=== PATIENT | male | born 2000 | race Caucasian/White ===

== ENCOUNTER 2024-02-08 14:51 | Outpatient (OUT) | payer BC, SELFPAY | END 2024-02-08 14:52 | disposition home or self-care (01) | LOC: SLEEP 14:51 | PROVIDERS: PCP Nurse Practitioner Family; Visit Provider Nurse Practitioner Family | DX: G47.33 Obstructive sleep apnea (adult) (pediatric) (principal) | CPT/HCPCS: 95806 ==

== ENCOUNTER 2024-03-14 20:30 | Outpatient (OUT) | payer BC, SELFPAY ==
--- OUTSIDE RECORDS SUMMARY | 2024-03-14 20:51 | XMS_ITS | CCD ---
Author Organization [facility] Inform ion Partnership [facility] Care Team Providers [employer] Name Role Phone Crys Urrutia Primary Care Provider [phone] CRYS URRUTIA Primary Care Unavailable GIANNA EDDY Attending Unavailable CRYS URRUTIA Primary Care Unavailable YUE PULIDO Attending Unavailable CRYS URRUTIA Primary Care Unavailable Jada Miranda Primary Care Physician Jada Montalvo Unavailable Unavailable ADEN MCCORMACK Attending Unavailable CRYS URRUTIA Primary Care Unavailable ADEN MCCORMACK Attending Unavailable ADEN MCCORMACK Referring Unavailable CRYS URRUTIA Primary Care Unavailable BEE BAILEY Attending Unavailable BEE BAILEY Referring Unavailable BEE BAILEY Attending Unavailable JUSTIN HERNANDEZ Attending Unavailable Allergies Allergy Classification Reported Allergen(s) Allergy Type Date of Onset Reaction(s) Facility (6 sources) Penicillins; Translations: [PENICILLINS] Propensity to adverse reactions to drug 10-14-2016 [employer] Work Phone: (3 sources) Penicillins Propensity to adverse reactions to drug 08-08-2018 [email or web address] Medications Current Medications Medication Drug Class(es) Dates Sig (Normalized) Sig (Original) acetaminophen 300 mg / butalbital 50 mg / caffeine 40 mg oral capsule (5 sources) Barbiturate, Central Nervous System Stimulant, Methylxanthine Start: 01-23-2020 take 1 capsule by mouth every six hours as needed for headache butalbital-APAP- caffeine (FIORICET) 50-300-40 MG CAPS per capsule Take 1 capsule by mouth every 6 hours as needed for Headaches 20 capsule 0 01/23/2020 Active Baloxavir Marboxil (XOFLUZA, 80 MG DOSE,) 1 x 80 MG tablet (1 source) Start: 08-17-2022 End: 08-17-2022 take 1 tablet by mouth once Baloxavir Marboxil (XOFLUZA, 80 MG DOSE,) 1 x 80 MG tablet Take 1 tablet by mouth once for 1 dose 1 tablet 0 08/17/2022 08/17/2022 Active dicyclomine hydrochloride 10 mg oral capsule (2 sources) Anticholinergic Start: 10-14-2022 take 1 capsule by mouth four times daily before mealtime dicyclomine (BENTYL) 10 MG capsule Take 1 capsule by mouth 4 times daily (before meals and nightly) 20 capsule 0 10/14/2022 Active Start: 10-14-2022 dicyclomine (B ENTYL) capsule 20 mg 0.4 ml enoxaparin sodium 100 mg/ml prefilled syringe (1 source) Low Molecular Weight Heparin Start: 10-09-2019 inject 40 mg by subcutaneous injection once daily 40 mg, Subcutaneous, DAILY, First dose on Tue10/09/19 at 1930 glucagon (rdna) 1 mg injection (1 source) Antihypoglycemic Agent Start: 10-10-2019 glucagon (rDNA) injection 1 mg 150 ml glucose 50 mg/ml injection (4 sources) Start: 10-10-2019 dextrose 5 % solution Start: 10-10-2019 glucose (GLUTO SE) 40 % oral gel 15 g Start: 10-10-2019 dextrose 50 % IV solution Start: 10-09-2019 12.5 g, Intrav enous, PRN, Low blood sugar, Starting Tue10/09/19 at 1902 For blood glucose level less than 70 mg/dL. Check blood glucose every 15 minutes and repeat above if blood glucose is less than 70 mg/dL. ibuprofen 800 mg oral tablet (3 sources) Nonsteroidal Anti-inflammatory Drug Start: 02-24-2021 take 1 tablet by mouth every eight hours as needed for pain ibuprofen (IBU) 800 MG tablet Take 1 tablet by mouth every 8 hours as needed for Pain 21 tablet 0 02/24/2021 Active insulin glargine 100 unt/ml injectable solution (9 sources) Insulin Analog Start: 10-10-2019 insulin glargine (LANTUS) injection vial 25 Units Toujeo SoloStar U-300 Insulin 300 unit/mL (1.5 mL) subcutaneous pen inject by subcutaneous route per prescriber's instructions. Insulin dosing requires individualization. insulin glargine (TOUJEO SOLOSTAR) 300 UNIT/ML injection pen Inject 50 Units into the skin nightly 0 Active insulin glulisine, human 100 unt/ml injectable solution (7 sources) Insulin Analog insulin glulisin e (APIDRA) 100 UNIT/ML injection Inject 10 Units into the skin 3 times daily (with meals) 0 Active insulin lispro 100 unt/ml injectable solution (5 sources) Insulin Analog Start: 10-10-2019 insulin lispro (HUMALOG) injection vial 0-6 Units Start: 10-10-2019 End: 10-10-2019 insulin lispro (HUMALOG) inj ection vial 10 Units Start: 08-09-2018 End: 08-20-2019 insulin lispro (HUMALOG) 100 UNIT/ML pen Indications: Diabetic ketoacidosis without coma associated with type 1 diabetes mellitus (HCC) , DKA, type 1, not at goal (HCC) Inject 0-18 Units into the skin 3 times daily (with meals) If Glucose: 70-139 No Insulin;140-199 3 Units; 200-249 6 Units, 250-299 9 Units,300-349 12 Units, 350-400 15 Units, Over 400 18 Units 5 pen 0 08/09/2018 08/20/2019 Discontinued (LIST CLEANUP) Start: 08-09-2018 End: 08-20-2019 insulin lispro (HUMALOG) 100 UNIT/ML pen Indications: Diabetic ketoacidosis without coma associated with type 1 diabetes mellitus (HCC) , DKA, type 1, not at goal (HCC) Night sliding scale: Glucose: 70-139 None;140-199 2 Units; 200-249 3 Units, 250-299 5 Units,300-349 6 Units, 350-400 7 Units, > 400 9 Units 5 pen 0 08/09/2018 08/20/2019 Discontinued (LIST CLEANUP) 100 ml magnesium sulfate 10 mg/ml injection (1 source) Start: 10-09-2019 1 g, Intravenous, at 100 mL/hr, Administer over 1 Hours, PRN, Other, Magnesium IV Replacement, Starting Tu10/09/19 at 1902 Mg Level Mg Replacement Action 1.4 to 1.6 1 gram IVPB x 2 doses (2 grams total) 1.0 to 1.3 1 gram IVPB x 4 doses (4 grams total) Below 1.0 CALL PHYSICIAN and 1 gram IVPB x 4 doses (4 grams total) Infuse at 1 gram/hr. Repeat Mg level next AM. Not for use in patients with CrCl less than 30 mL/min. ondansetron 4 mg disintegrating oral tablet (6 sources) Serotonin-3 Receptor Antagonist Start: 08-17-2022 End: 08-17-2022 take 1 tablet by mouth three times daily as needed for nausea ondansetron (ZOFRAN-ODT) 4 MG disintegrating tablet Take 1 tablet by mouth 3 times daily as needed for Nausea or Vomiting 20 tablet 0 08/17/2022 Active Start: 08-20-2019 End: 08-25-2019 take 1 tablet by mouth every eight hours as needed for nausea ondansetron (ZOFRAN) 4 MG tablet Take 1 tablet by mouth every 8 hours as needed for Nausea or Vomiting 15 tablet 0 08/20/2019 08/25/2019 Active Start: 08-20-2019 End: 08-20-2019 ondansetron (ZOFRAN) injecti on 4 mg 100 ml potassium chloride 0. 1 meq/ml injection (1 source) Start: 10-09-2019 10 mEq, Intrav enous, at 100 mL/hr, PRN, Potassium IV Replacement, Starting Tue10/09/19 at 1902 Above 5.2 No dose 4.3 to 5.2 10 mEq IVPB x 2 doses (20 mEq total) 3.4 to 4.2 10 mEq IVPB x 3 doses (30 mEq total) Below 3.4 10 mEq IVPB x 4 doses (40 mEq total) Infuse at 10 mEq/hr. Can be administered either through peripheral IV or central IV. 1000 ml sodium chloride 9 mg/ml injection (3 sources) Start: 10-10-2019 0.9 % sodium c hloride infusion Start: 10-09-2019 End: 10-09-2019 0.9 % NaCl bolus Start: 08-20-2019 End: 08-20-2019 0.9 % sodium chloride bolus Completed/Discontinued Medications Medication Drug Class(es) Dates Sig (Normalized) Sig (Original) acetaminophen 500 mg oral tablet (1 source) Start: 08-17-2022 End: 08-17-2022 acetaminophen (TYLENOL) tablet 1,000 mg aluminum & magnesium hydroxide-simethicone (MAALOX) 30 mL, lidocaine viscous hcl (XYLOCAINE) 5 mL (GI COCKTAIL) (1 source) Start: 10-14-2022 End: 10-14-2022 aluminum & magnesium hydroxide-simethicon e (MAALOX) 30 mL, lidocaine viscous hcl (XYLOCAINE) 5 mL (GI COCKTAIL) diphenhydrAMINE hydrochloride 25 mg oral capsule (1 source) Histamine-1 Receptor Antagonist Start: 01-23-2020 End: 01-23-2020 diphenhydrAMINE (BENADRYL) capsule 25 mg Start: 01-23-2020 End: 01-23-2020 diphenhydrAMINE (BENADRYL) c apsule 25 mg 250 ml glucose 50 mg/ml / sodium chloride 4.5 mg/ml injection (1 source) Start: 10-09-2019 End: 10-10-2019 take 1 mL intravenous route every hour Intravenous, at 150 mL/hr, CONTINUOUS PRN, blood glucose less than 250 mg/dL, Starting Tue10/09/19 at 1902 When blood glucose equals 250 mg/dL or below, DISCONTINUE saline IV Fluid using Per Protocol order mode and start using this dextrose containing IV fluid order. DO NOT restart saline infusion if subsequent blood glucose returns above 250 mg/dL. 3 ml insulin aspart, human 100 unt/ml pen injector (2 sources) Insulin Analog Novolog FlexPen U-100 Insulin aspart 100 unit/mL (3 mL) subcutaneous inject by subcutaneous route per prescriber's instructions. Insulin dosing requires individualization. insulin aspart ( NOVOLOG) 100 UNIT/ML injection vial Inject into the skin 3 times daily (before meals) Patient reports he takes 1 unit for every 7g carbs, sliding scale 0 Active insulin regular (HUMULIN R;NOVOLIN R) 100 Units in sodium chloride 0.9 % 100 mL infusion (1 source) Start: 10-09-2019 End: 10-09-2019 inject 0.1 [IU] intravenous route every hour 0.1 Units/kg/hr 67.1 kg (6.71 mL/hr, rounded to 6.7 mL/hr), Intravenous, at 6.7 mL/hr, CONTINUOUS, Starting Tue10/09/19 at 1930 Initial DKA Insulin Infusion Protocol: - If any blood glucose (BG) increases, then increase infusion by 50% of current rate - If BG decrease is less than 50 mg/dL per hour, increase infusion by 50% of current rate - If BG decrease is between 50-75 mg/dL per hour, then make no change to infusion rate - If BG decrease is between 76-100 mg/dL per hour, decrease infusion by 50% of current rate - If BG decrease is greater than 100 mg/dL per hour, decrease infusion by 50%, repeat BG, and call provider - When BG < 250 mg/dL, switch to DKA Multiplier Insulin Infusion Protocol (DO NOT switch back to above protocol if the BG subsequently goes above 250 mg/dL again). - REMINDER TO CHANGE IV FLUIDS - When BG 250 mg/dL or below, DISCONTINUE saline IV fluid using Per Protocol order mode and start using the dextrose containing IV fluid order previously placed as CONTINUOUS PRN. DO NOT restart saline infusion if subsequent BG returns above 250 mg/dL. DKA Multiplier Insulin Infusion Protocol: Low BG target: 150 mg/dL and High BG target: 200 mg/dL Begin infusion rate by the following formula: (BG - 60) x 0.03 = insulin units per hour but DO NOT increase the insulin rate any greater than three times the current rate. Adjust the multiplier in the above formula as follows: - If BG is greater than 200 mg/dL, increase multiplier by 0.01 - If BG is less than 150 md/dL, decrease multiplier by 0.01 - If BG is between 150 - 200 mg/dL, make no change in multiplier - Recalculate insulin dose with every BG drawn, even if the multiplier does not change - Hold insulin infusion if BG less than 80 mg/dL, if BG less than 70 mg/dL follow hypoglycemia treatment orders, continue to check BG as ordered, and restart insulin infusion if and when BG increases back into goal range while decreasing last multiplier by 0.01 Notify provider if: * BG is less than 80 * If BG less than 200 mg/dL AND when both of the following criteria are met on two consecutive BMPs: Anion gap normalized (less than 12), serum bicarb (HCO3) greater than 15, call provider for conversion from insulin infusion to subcutaneous insulin and discontinue insulin infusion 2 hours after the first subcutaneous injection of insulin. * If multiplier less than 0.01 results in insulin rate of 0 units/hr for clarification on insulin infusion rate and/or IV fluid adjustments. Maintain current insulin infusion rate prior to notifying physician unless BG less than 80 mg/dL. Iopamidol (1 source) Radiographic Contrast Agent Start: 08-20-2019 End: 08-20-2019 iopamidol (ISOVUE-370) 76 % injection 75 mL iopamidol (ISOVUE-370) 76 % injection 75 mL (1 source) Start: 10-11-2022 End: 10-11-2022 iopamidol (ISOVUE-370) 76 % injection 75 mL 1 ml ketorolac tromethamine 15 mg/ml cartridge (2 sources) Nonsteroidal Anti-inflammatory Drug, Cyclooxygenase Inhibitor Start: 10-11-2022 End: 10-11-2022 ketorolac (TORADOL) injection 15 mg Start: 01-23-2020 End: 01-23-2020 ketorolac (TORADOL) injectio n 15 mg 2 ml metoclopramide 5 mg/ml prefilled syringe (1 source) Dopamine-2 Receptor Antagonist Start: 01-23-2020 End: 01-23-2020 metoclopramide (REGLAN) injection 10 mg Start: 01-23-2020 End: 01-23-2020 metoclopramide (REGLAN) inje ction 10 mg naproxen 500 mg oral tablet (1 source) Nonsteroidal Anti-inflammatory Drug End: 08-01-2023 take 1 tablet by mouth twice daily at mealtime naproxen 500 mg tablet 08/01/2023 take 1 tablet (500 mg) by oral route 2 times per day with food regular insulin, human 100 unt/ml injectable solution (2 sources) Insulin Start: 10-09-2019 End: 10-09-2019 insulin regular (HUMULIN R;NOVOLIN R) injection 5 Units Start: 10-09-2019 End: 10-09-2019 insulin regular (HUMULIN R;N OVOLIN R) injection 10 Units Problems Active Problems Problem Classification Problem Date Documented Da te Episodic/Chronic Abdominal pain (5 sources) Periumbilical pain; Translations: [Abdominal pain] Onset: 10-11-2022 Episodic Diabetes mellitus with complications (7 sources) Diabetic ketoacidosis without coma; Translations: [Type 1 diabetes mellitus with ketoacidosis without coma] Onset: 08-08-2018 08-08-2018 Chronic Diabetes mellitus without complication (16 sources) Type 1 diabetes mellitus; Translations: [Type 1 diabetes mellitus with ketoacidosis without coma] Onset: 08-08-2018 10-09-2019 Chronic Influenza (2 sources) Influenza due to Influenza A virus; Translations: [Influenza due to other identified influenza virus with other respiratory manifestations] Onset: 08-17-2022 Episodic Lung disease due to external agents (1 source) Respiratory conditions due to other specified external agents; Translations: [Respiratory conditions due to other specified external agents] Onset: 09-10-2023 Episodic Other gastrointestinal disorders (1 source) Constipation; Translations: [Constipation, unspecified] Episodic Other gastrointestinal disorders (1 source) Constipation, unspecified; Translations: [Constipation, unspecified] Onset: 10-11-2022 Episodic Other lower respiratory disease (1 source) Shortness of breath; Translations: [Shortness of breath] Onset: 09-10-2023 Episodic Other upper respiratory infections (1 source) Acute pharyngitis; Translations: [Acute pharyngitis, unspecified etiology] Episodic Poisoning by nonmedicinal substances (1 source) Toxic effect of chlorine gas, accidental (unintentional), initial encounter; Translations: [Toxic effect of chlorine gas, accidental (unintentional), initial encounter] Onset: 09-10-2023 Episodic Sprains and strains (1 source) Other sprain of left shoulder joint, initial encounter Onset: 08-01-2023 Episodic Unclassified (1 source) Inhalation Injury Onset: 09-10-2023 Past or Other Problems Problem Classification Problem Date Documented Da te Episodic/Chronic Acute and unspecified renal failure (4 sources) Acute injury of kidney; Translations: [Acute kidney failure, unspecified] Onset: 08-09-2018 08-09-2018 Episodic Acute and unspecified renal failure (3 sources) Acute injury of kidney; Translations: [ADDISON (acute kidney injury)] Onset: 08-09-2018 08-09-2018 Diabetes mellitus without complication (8 sources) Hyperglycemia; Translations: [Hyperglycemia, unspecified] Onset: 10-09-2019 10-09-2019 Episodic Fluid and electrolyte disorders (7 sources) Acidosis; Translations: [Acidosis] Onset: 10-09-2019 10-09-2019 Episodic Headache; including migraine (8 sources) Headache disorder; Translations: [Headache] Onset: 08-08-2018 08-08-2018 Episodic Nausea and vomiting (7 sources) Nausea and vomiting; Translations: [Nausea with vomiting, unspecified] Onset: 08-08-2018 08-08-2018 Episodic Results Test Name Value Interpretation Reference Range Facility BASIC METABOLIC PANLon 09-10 Anion gap [Moles/Vol] 9 mmol/L Normal 5-15 [facility] Comment on above: Performed By: #### C BCA, BMP #### [facility] ([id number]) [address] [place] [address] [phone] Calcium [Mass/Vol] 9.1 mg/dL Normal 8.5-10.5 [facility] Comment on above: Performed By: #### C BCA, BMP #### [facility] ([id number]) [address] [place] [address] [phone] Chloride [Moles/Vol] 100 mmol/L Normal 98-109 [facility] Comment on above: Performed By: #### C BCA, BMP #### [facility] ([id number]) [address] [place] [address] [phone] CO2 [Moles/Vol] 25 mmol/L Normal 22-32 [facility] Comment on above: Performed By: #### C BCA, BMP #### [facility] ([id number]) [address] [place] [address] 29402 Creatinine [Mass/Vol] 0.84 mg/dL Normal 0.70-1.20 [facility] Comment on above: Result Comment: METH OD TRACEABLE TO IDMS STANDARD Performed By: #### C YANELI, BMP #### [facility] ([id number]) [address] [place] [address] 87787 eGFR (CKD-EPI) NON-RACE DEPENDENT >90 Normal >59 [facility] Comment on above: Result Comment: Reported eGFR is based on the CKD-EPI 2020 equation that does not use a race coefficient. Performed By: #### C YANELI, BMP #### [facility] ([id number]) [address] [place], [place] [phone] Glucose [Mass/Vol] 259 mg/dL High 65-99 [facility] Comment on above: Performed By: #### C YANELI, BMP #### [facility] ([id number]) [address] [place], [place] [phone] Potassium [Moles/Vol] 4.1 mmol/L Normal 3.5-5.0 [facility] Comment on above: Performed By: #### C YANELI, BMP #### [facility] ([id number]) [address] [place] [address] 86956 Sodium [Moles/Vol] 134 mmol/L Normal 134-146 [facility] Comment on above: Performed By: #### C YANELI, BMP #### [facility] ([id number]) [address] [place], [place] [phone] Urea nitrogen [Mass/Vol] 16 mg/dL Normal 5-23 [facility] Comment on above: Performed By: #### C YANELI, BMP #### [facility] ([id number]) [address] [place] [address] 41746 CBC AND AUTO DIFFon 20-20 24 ABSOLUTE BASOPHIL 0.0 X10E9/L Normal 0.0-0.2 [facility] Comment on above: Performed By: #### C YANELI, BMP #### [facility] ([id number]) [address] [place] [address] 74946 ABSOLUTE NEUTROPHIL 6.1 X10E9/L Normal 1.5-6.6 [facility] Comment on above: Performed By: #### C BCA, BMP #### [facility] ([id number]) [address] [place] [address] 65400 Basophils/100 WBC (Bld) 0.5 % Normal [facility] Comment on above: Performed By: #### C BCA, BMP #### [facility] ([id number]) [address] [place] [address] 49964 Eosinophils (Bld) [#/Vol] 0.0 10*3/uL Normal 0.0-0.4 [facility] Comment on above: Performed By: #### C YANELI, BMP #### [facility] ([id number]) [address] [place] [address] [phone] Eosinophils/100 WBC (Bld) 0.3 % Normal [facility] Comment on above: Performed By: #### C YANELI, BMP #### [facility] ([id number]) [address] [place] [address] 37425 Erythrocyte distribution width (RBC) [Ratio] 12.6 % Normal 11.5-15.0 [facility] Comment on above: Performed By: #### C BCA, BMP #### [facility] ([id number]) [address] [place] [address] 79914 Hematocrit (Bld) [Volume fraction] 46.4 % Normal 39-49 [facility] Comment on above: Performed By: #### C BCA, BMP #### [facility] ([id number]) [address] [place] [address] 48566 Hemoglobin (Bld) [Mass/Vol] 15.8 g/dL Normal 13.0-17.0 [facility] Comment on above: Performed By: #### C BCA, BMP #### [facility] ([id number]) [address] [place] [address] 79243 Lymphocytes (Bld) [#/Vol] 1.3 10*3/uL Normal 1.0-3.5 [facility] Comment on above: Performed By: #### C BCA, BMP #### [facility] ([id number]) [address] [place] [address] 25084 Lymphocytes/100 WBC (Bld) 16.6 % Normal [facility] Comment on above: Performed By: #### C BCA, BMP #### [facility] ([id number]) [address] [place] [address] 28303 MCH (RBC) [Entitic mass] 30.8 pg Normal 27-34 [facility] Comment on above: Performed By: #### C BCA, BMP #### [facility] ([id number]) [address] [place] [address] 06230 MCHC (RBC) [Mass/Vol] 34.2 g/dL Normal 32-36 [facility] Comment on above: Performed By: #### C BCA, BMP #### [facility] ([id number]) [address] [place] [address] 66121 MCV (RBC) [Entitic vol] 90 fL Normal 80-100 [facility] Comment on above: Performed By: #### C BCA, BMP #### [facility] ([id number]) [address] [place] [address] 71326 Monocytes (Bld) [#/Vol] 0.2 10*3/uL Normal 0-0.9 [facility] Comment on above: Performed By: #### C BCA, BMP #### [facility] ([id number]) [address] [place] [address] 15256 Monocytes/100 WBC (Bld) 3.2 % Normal [facility] Comment on above: Performed By: #### C BCA, BMP #### [facility] ([id number]) [address] [place] [address] 01416 Neutrophils/100 WBC (Bld) 79.4 % Normal [facility] Comment on above: Performed By: #### Bernice GROVES, BMP #### [facility] ([id number]) [address] [place] [address] [phone] Platelet mean volume (Bld) [Entitic vol] 8.6 fL Normal 7-12 [facility] Comment on above: Performed By: #### Bernice GROVES, BMP #### [facility] ([id number]) [address] [place] [address] 81866 Platelets (Bld) [#/Vol] 259 10*3/uL Normal 150-450 [facility] Comment on above: Performed By: #### Bernice GROVES, BMP #### [facility] ([id number]) [address] [place] [address] 81189 RBC COUNT 5.14 X10E12/L Normal 4.10-5.70 [facility] Comment on above: Performed By: #### Bernice GROVES, BMP #### [facility] ([id number]) [address] [place] [address] 18645 WBC (Bld) [#/Vol] 7.7 10*3/uL Normal 4.0-11.0 [facility] Comment on above: Performed By: #### Bernice GROVES, BMP #### [facility] ([id number]) [address] [place] [address] 25648 XR CHEST 1 VWon 09-10-2023 XR CHEST 1 VW XR CHEST 1 VW CLINICAL INFORMATION: . Shortness of breath post inhalation of chlorine gas. TECHNIQUE/PROCEDURE: Chest radiograph, single view. COMPARISON: Prior chest radiographs, most recently 01/24/2018 FINDINGS: No tracheal deviation. Cardiac and mediastinal contours normal. No consolidation, pneumothorax or pleural effusion. No free air. IMPRESSION: * No radiographic evidence of cardiopulmonary disease. Finalized by Surya Smyth MD on 09/10/2023 9:57 AM Normal [facility] No Panel Informationon 08-01 Tobacco smoking status Non-Smoker Invalid Interpretation Code [facility] [employer] CBC with Auto Differentialon 10-14-2022 Absolute Eos # 0.09 [facility] Absolute Immature Granulocyte [facility] Absolute Lymph # 1.71 [facility] Absolute Hand # 0.39 [facility] Basophils Absolute [facility] Basophils/100 WBC (Bld) 0 % 0 - 2 % [facility] Eosinophils/100 WBC (Bld) 2 % 1 - 4 % [facility] Hematocrit (Bld) [Volume fraction] 43.6 % 40.7 - 50.3 % [facility] Hemoglobin (Bld) [Mass/Vol] 15.3 g/dL 13.0 - 17.0 g/dL [facility] Immature granulocytes/100 WBC (Bld) 0 % 0 [facility] Interpretation and review of laboratory results Abnormal [facility] Lymphocytes/100 WBC (Bld) 32 % 24 - 43 % [facility] MCH (RBC) [Entitic mass] 31.7 pg 25.2 - 33.5 pg [facility] MCHC (RBC) [Mass/Vol] 35.1 g/dL High 28.4 - 34.8 g/dL [facility] MCV (RBC) [Entitic vol] 90.5 fL 82.6 - 102.9 fL [facility] Monocytes/100 WBC (Bld) 7 % 3 - 12 % [facility] NRBC Automated 0.0 0.0 per 100 WBC [facility] Platelet distribution width (Bld) [Ratio] 11.5 % Low 11.8 - 14.4 % [facility] Platelet mean volume (Bld) [Entitic vol] 10.3 fL 8.1 - 13.5 fL [facility] Platelets (Bld) [#/Vol] 219 10*3/uL [facility] RBC (Bld) [#/Vol] 4.82 10*6/uL 4.21 - 5.7 7 m/uL [facility] Segmented neutrophils/100 WBC (Bld) 58 % 36 - 65 % [facility] Segs Absolute 3.12 [facility] WBC (Bld) [#/Vol] 5.4 10*3/uL [facility] CBC with Diffon 10-14-2022 Abs. Basophil <0.03 Normal 0.00-0.20 [facility] Comment on above: Performed By: #### C DP, CP, LIP #### [facility] [address] [place] [address] Hospice Care Transitions Coordinator: Cash Guerrero MD Abs.Imm.Granulocyte <0.03 Normal 0.00-0.30 [facility] Comment on above: Performed By: #### C DP, CP, LIP #### [facility] [address] [place], [place] [id number] Hospice Care Transitions Coordinator: Cash Guerrero MD Abs.Neutrophil (Seg) 3.12 k/uL Normal 1.50-8.10 [facility] Comment on above: Performed By: #### C DP, CP, LIP #### [facility] [address] [place], [place] [id number] Hospice Care Transitions Coordinator: Cash Guerrero MD Basophils/100 WBC (Bld) 0 % Normal 0-2 [facility] Comment on above: Performed By: #### C DP, CP, LIP #### [facility] [address] [place], [place] [id number] Hospice Care Transitions Coordinator: Cash Guerrero MD Eosinophils (Bld) [#/Vol] 0.09 10*3/uL Normal 0.00-0.44 [facility] Comment on above: Performed By: #### C DP, CP, LIP #### [facility] [address] [place] [address] Hospice Care Transitions Coordinator: Cash Guerrero MD Eosinophils/100 WBC (Bld) 2 % Normal 1-4 [facility] Comment on above: Performed By: #### C DP, CP, LIP #### [facility] [address] [place] [address] Hospice Care Transitions Coordinator: Cash Guerrero MD Erythrocyte distribution width (RBC) [Ratio] 11.5 % Low 11.8-14.4 [facility] Comment on above: Performed By: #### C DP, CP, LIP #### [address] [place], [place] [address] Hospice Care Transitions Coordinator: Cash Guerrero MD Hematocrit (Bld) [Volume fraction] 43.6 % Normal 40.7-50.3 [facility] Comment on above: Performed By: #### C DP, CP, LIP #### [address] [place] [id number] Hospice Care Transitions Coordinator: Cash Guerrero MD Hemoglobin (Bld) [Mass/Vol] 15.3 g/dL Normal 13.0-17.0 [facility] Comment on above: Performed By: #### C DP, CP, LIP #### [address] [place], [place] [id number] Hospice Care Transitions Coordinator: Cash Guerrero MD Immature granulocytes/100 WBC (Bld) 0 % Normal 0 [facility] Comment on above: Performed By: #### C DP, CP, LIP #### [address] [place], [place] [address] Hospice Care Transitions Coordinator: Cash Guerrero MD Lymphocytes (Bld) [#/Vol] 1.71 10*3/uL Normal 1.10-3.70 [facility] Comment on above: Performed By: #### C DP, CP, LIP #### [address] [place], [place] [address]83 Hospice Care Transitions Coordinator: Cash Guerrero MD Lymphocytes/100 WBC (Bld) 32 % Normal 24-43 [facility] Comment on above: Performed By: #### C DP, CP, LIP #### [address] [place], [place] [phone] Hospice Care Transitions Coordinator: Cash Guerrero MD MCH (RBC) [Entitic mass] 31.7 pg Normal 25.2-33.5 [facility] Comment on above: Performed By: #### C DP, CP, LIP #### [address] [place], [facility]83 Hospice Care Transitions Coordinator: Cash Guerrero MD MCHC (RBC) [Mass/Vol] 35.1 g/dL High 28.4-34.8 [facility] Comment on above: Performed By: #### C DP, CP, LIP #### [address] [place], [facility]83 Hospice Care Transitions Coordinator: Cash Guerrero MD MCV (RBC) [Entitic vol] 90.5 fL Normal 82.6-102.9 [facility] Comment on above: Performed By: #### C DP, CP, LIP #### [address] [place], [facility]83 Hospice Care Transitions Coordinator: Cash Guerrero MD Monocytes (Bld) [#/Vol] 0.39 10*3/uL Normal 0.10-1.20 [facility] Comment on above: Performed By: #### C DP, CP, LIP #### [address] [place], [facility]83 Hospice Care Transitions Coordinator: Cash Guerrero MD Monocytes/100 WBC (Bld) 7 % Normal 3-12 [facility] Comment on above: Performed By: #### C DP, CP, LIP #### [address] [place], [facility]83 Hospice Care Transitions Coordinator: Cash Guerrero MD Neutrophil (Seg) 58 % Normal 36-65 [facility] Comment on above: Performed By: #### C DP, CP, LIP #### [address] [place], [facility]83 Hospice Care Transitions Coordinator: Cash Guerrero MD NRBC Automated 0.0 per 100 WBC Normal 0.0 [facility] Comment on above: Performed By: #### C KEVIN FERNANDEZ, LIP #### [facility] [address] [place], [place] [id number] Hospice Care Transitions Coordinator: Cash Guerrero MD Platelet mean volume (Bld) [Entitic vol] 10.3 fL Normal 8.1-13.5 [facility] Comment on above: Performed By: #### C JIM CP, LIP #### [facility] [address] [place], [place] [id number] Hospice Care Transitions Coordinator: Cash Guerrero MD Platelets (Bld) [#/Vol] 219 10*3/uL Normal 138-453 [facility] Comment on above: Performed By: #### C KEVIN FERNANDEZ, LIP #### [facility] [address] [place], [facility]83 Hospice Care Transitions Coordinator: Cash Guerrero MD RBC (Bld) [#/Vol] 4.82 10*6/uL Normal 4.21-5.77 [facility] Comment on above: Performed By: #### C KEVIN FERNANDEZ, LIP #### [facility] [address] [place], [place] [address]83 Hospice Care Transitions Coordinator: Cash Guerrero MD WBC (Bld) [#/Vol] 5.4 10*3/uL Normal 3.5-11.3 [facility] Comment on above: Performed By: #### C JIM CP, LIP #### [facility] [address] [place] [address] Hospice Care Transitions Coordinator: Cash Guerrero MD CMPon 10-14-2022 Albumin [Mass/Vol] 4.1 g/dL 3.5 - 5.2 g/dL [facility] Albumin/Globulin [Mass ratio] 1.4 {ratio} 1.0 - 2.5 [facility] ALP [Catalytic activity/Vol] 88 U/L 40 - 129 U/L [facility] ALT [Catalytic activity/Vol] 15 U/L 5 - 41 U/L [facility] Anion gap [Moles/Vol] 10 mmol/L 9 - 17 mmol/L [facility] AST [Catalytic activity/Vol] 15 U/L NINF - 40 U/L [facility] Bilirubin [Mass/Vol] 0.2 mg/dL Low 0.3 - 1 .2 mg/dL [facility] Calcium [Mass/Vol] 9.4 mg/dL 8.6 - 10. 4 mg/dL [facility] Chloride [Moles/Vol] 104 mmol/L 98 - 10 7 mmol/L [facility] CO2 [Moles/Vol] 25 mmol/L 20 - 31 mmol/L [facility] Creatinine [Mass/Vol] 0.6 mg/dL Low 0.70 - 1.20 mg/dL [facility] GFR/1.73 sq M.predicted MDRD (S/P/Bld) [Vol rate/Area] - PINF [facility] Comment on above: These results are not intended for use in patients <18 years of age. eGFR results are calculated without a race factor using the 2020 CKD-EPI equation. Careful clinical correlation is recommended, particularly when comparing to results calculated using previous equations. The CKD-EPI equation is less accurate in patients with extremes of muscle mass, extra-renal metabolism of creatine, excessive creatine ingestion, or following therapy that affects renal tubular secretion. Glucose [Mass/Vol] 122 mg/dL High 70 - 99 mg/dL [facility] Interpretation and review of laboratory results Abnormal [facility] Potassium [Moles/Vol] 3.8 mmol/L 3.7 - 5.3 mmol/L [facility] Protein [Mass/Vol] 7.1 g/dL 6.4 - 8.3 g/dL [facility] Sodium [Moles/Vol] 139 mmol/L 135 - 144 mmol/L [facility] Urea nitrogen [Mass/Vol] 12 mg/dL 6 - 20 mg/dL [facility] Urea nitrogen/Creatinine (Bld) [Mass ratio] 20 9 - 20 [facility] Comp Metabolic Profon 02-23- 2023 Albumin [Mass/Vol] 4.1 g/dL Normal 3.5-5.2 [facility] Comment on above: Performed By: #### C DP, CP, LIP #### [facility] [address] [place], [place] [id number] Hospice Care Transitions Coordinator: Cash Guerrero MD Albumin/Glob Ratio 1.4 Normal 1.0-2.5 [facility] Comment on above: Performed By: #### C DP, CP, LIP #### [facility] [address] [place], [place] [address]83 Hospice Care Transitions Coordinator: Cash Guerrero MD Alkaline Phos 88 U/L Normal 40-129 [facility] Comment on above: Performed By: #### C DP, CP, LIP #### [facility] [address] [place], [place] 1658183 Hospice Care Transitions Coordinator: Cash Guerrero MD ALT [Catalytic activity/Vol] 15 U/L Normal 5-41 [facility] Comment on above: Performed By: #### C DP, CP, LIP #### [facility] [address] [place], [place] [address]83 Hospice Care Transitions Coordinator: Cash Guerrero MD Anion gap [Moles/Vol] 10 mmol/L Normal 9-17 [facility] Comment on above: Performed By: #### C DP, CP, LIP #### [facility] [address] [place], [place] [address] Hospice Care Transitions Coordinator: Cash Guerrero MD AST [Catalytic activity/Vol] 15 U/L Normal <40 [facility] Comment on above: Performed By: #### C DP, CP, LIP #### [facility] [address] [place], [place] [address]83 Hospice Care Transitions Coordinator: Cash Guerrero MD Bilirubin [Mass/Vol] 0.2 mg/dL Low 0.3-1.2 [facility] Comment on above: Performed By: #### C DP, CP, LIP #### [facility] [address] [place], [place] 387[address]83 Hospice Care Transitions Coordinator: Cash Guerrero MD BUN/CRE Ratio 20 Normal 9-20 [facility] Comment on above: Performed By: #### C DP, CP, LIP #### [facility] [address] [place], [place] [address] Hospice Care Transitions Coordinator: Cash Guerrero MD Calcium [Mass/Vol] 9.4 mg/dL Normal 8.6-10.4 [facility] Comment on above: Performed By: #### C DP, CP, LIP #### [facility] [address] [place], [place] [address]83 Hospice Care Transitions Coordinator: Cash Guerrero MD Chloride [Moles/Vol] 104 mmol/L Normal 98-107 [facility] Comment on above: Performed By: #### C DP, CP, LIP #### [facility] [address] [place], [place] [address]84183 Hospice Care Transitions Coordinator: Cash Guerrero MD CO2 [Moles/Vol] 25 mmol/L Normal 20-31 [facility] Comment on above: Performed By: #### C DP, CP, LIP #### [facility] [address] [place], [place] [address]27683 Hospice Care Transitions Coordinator: Cash Guerrero MD Creatinine [Mass/Vol] 0.60 mg/dL Low 0.70-1.20 [facility] Comment on above: Performed By: #### C DP, CP, LIP #### [facility] [address] [place] [address] Hospice Care Transitions Coordinator: Cash Guerrero MD GFR/1.73 sq M.predicted among non-blacks MDRD (S/P/Bld) [Vol rate/Area] mL/min/{1.73_m2} Normal >60 [facility] Comment on above: Result Comment: These results are not intended for use in patients <18 years of age. eGFR results are calculated without a race factor using the 2020 CKD-EPI equation. Careful clinical correlation is recommended, particularly when comparing to results calculated using previous equations. The CKD-EPI equation is less accurate in patients with extremes of muscle mass, extra-renal metabolism of creatine, excessive creatine ingestion, or following therapy that affects renal tubular secretion. Performed By: #### C DP, CP, LIP #### [facility] [address] [place] [address] Dr[place], [facility]83 Hospice Care Transitions Coordinator: Cash Guerrero MD Glucose [Mass/Vol] 122 mg/dL High 70-99 [facility] Comment on above: Performed By: #### C DP, CP, LIP #### [address] [place] [address] Hospice Care Transitions Coordinator: Cash Guerrero MD Potassium [Moles/Vol] 3.8 mmol/L Normal 3.7-5.3 [facility] Comment on above: Performed By: #### C DP, CP, LIP #### [address] [place] [address] Hospice Care Transitions Coordinator: Cash Guerrero MD Protein [Mass/Vol] 7.1 g/dL Normal 6.4-8.3 [facility] Comment on above: Performed By: #### C DP, CP, LIP #### [address] [place] [address] Hospice Care Transitions Coordinator: Cash Guerrero MD Sodium [Moles/Vol] 139 mmol/L Normal 135-144 [facility] Comment on above: Performed By: #### C DP, CP, LIP #### [facility] [address] [place] [address] [place] [address] Hospice Care Transitions Coordinator: Cash Guerrero MD Urea nitrogen [Mass/Vol] 12 mg/dL Normal 6-20 [facility] Comment on above: Performed By: #### C DP, CP, LIP #### [address] [place] [address] Hospice Care Transitions Coordinator: Cash Guerrero MD Lipaseon 10-14-2022 Lipase [Catalytic activity/Vol] 13 U/L Normal 13-60 [facility] Comment on above: Performed By: #### C DP, CP, LIP #### [facility] [address] [place] [address] [place], [place] [id number] Hospice Care Transitions Coordinator: Cash Guerrero MD Lipase [Catalytic activity/Vol] 13 U/L 13 - 60 U/L [facility] No Panel Informationon 10-14 [facility] Urinalysis w/ Microon 2022 Epithelial cells LM Ql (Urine sed) 0 TO 2 Normal 0-5 [facility] Comment on above: Result Comment: CHERYL ECTED ON 10/14 AT 0835: PREVIOUSLY REPORTED 2 TO 5 Performed By: #### U AMIC #### [facility] [address] [place] [address] [place] [id number] Hospice Care Transitions Coordinator: Cash Guerrero MD Glucose Ql (U) 2+ Abnormal NEG [facility] Comment on above: Result Comment: CHERYL ECTED ON 10/14 AT 0835: PREVIOUSLY REPORTED NEGATIVE Performed By: #### U AMIC #### [address] [place], [place] [address]40683 Hospice Care Transitions Coordinator: Cash Guerrero MD Mucus Strands TRACE Abnormal NONE [facility] Comment on above: Performed By: #### U AMIC #### [facility] [address] [place] [address] [place], [place] [id number] Hospice Care Transitions Coordinator: Cash Guerrero MD Spec. [place],Ur >1.030 High 1.010-1.020 [facility] Comment on above: Result Comment: CHERYL ECTED ON 10/14 AT 0835: PREVIOUSLY REPORTED <1.005 Performed By: #### U AMIC #### [facility] [address] [place] [address] [place] [address] Hospice Care Transitions Coordinator: Cash Guerrero MD Urine RBC's 0 TO 2 Normal 0-2 [facility] Comment on above: Performed By: #### U AMIC #### [facility] [address] [place], [place] [address]83 Hospice Care Transitions Coordinator: Cash Guerrero MD Urine WBC's 2 TO 5 Normal 0-5 [facility] Comment on above: Result Comment: CHERYL ECTED ON 10/14 AT 0835: PREVIOUSLY REPORTED 0 TO 2 Performed By: #### U AMIC #### [facility] [address] [place], [place] [phone] Hospice Care Transitions Coordinator: Cash Guerrero MD Bacteria TRACE Abnormal NONE [facility] Comment on above: Performed By: #### U AMIC #### [facility] [address] [place] [address] [place], [place] 8897183 Hospice Care Transitions Coordinator: Cash Guerrero MD Bilirubin, SemiQt,Ur Negative Normal NEG [facility] Comment on above: Performed By: #### U AMIC #### [facility] [address] [place], [place] 269[address]83 Hospice Care Transitions Coordinator: Cash Guerrero MD Blood, Urine Negative Normal NEG [facility] Comment on above: Performed By: #### U AMIC #### [facility] [address] [place] [address] [place], [place] [address]28783 Hospice Care Transitions Coordinator: Cash Guerrero MD Clarity (U) Clear Normal CLEAR [facility] Comment on above: Performed By: #### U AMIC #### [facility] [address] [place], [place] 1733483 Hospice Care Transitions Coordinator: Cash Guerrero MD Color (U) Yellow Normal YEL [facility] Comment on above: Performed By: #### U AMIC #### [facility] [address] [place], [place] [address]26683 Hospice Care Transitions Coordinator: Cash Guerrero MD Ketones Ql (U) Negative Normal NEG [facility] Comment on above: Performed By: #### U AMIC #### [facility] [address] [place], [place] [address]83 Hospice Care Transitions Coordinator: Cash Guerrero MD Leukocyte esterase Test strip Ql (U) Negative Normal NEG [facility] Comment on above: Performed By: #### U AMIC #### [facility] [address] [place] [address] Hospice Care Transitions Coordinator: Cash Guerrero MD Nitrite,Ur Negative Normal NEG [facility] Comment on above: Performed By: #### U AMIC #### [facility] [address] [place] [address] Hospice Care Transitions Coordinator: Cash Guerrero MD PH,Ur 6.0 Normal 5.0-9.0 [facility] Comment on above: Performed By: #### U AMIC #### [facility] [address] [place], [facility]83 Hospice Care Transitions Coordinator: Cash Guerrero MD Protein Ql (U) Negative Normal NEG [facility] Comment on above: Performed By: #### U AMIC #### [facility] [address] [place] [address] [place] [address] Hospice Care Transitions Coordinator: Cash Guerrero MD Urobilinogen,Ur Normal Normal NORM [facility] Comment on above: Performed By: #### U AMIC #### [facility] [address] [place], [facility]83 Hospice Care Transitions Coordinator: Cash Guerrero MD Urinalysis with Microscopico n 10-14-2022 Bacteria, UA TRACE Abnormal None [facility] Bilirubin Urine Negative NEGATIVE [facility] [employer] Color, UA Yellow Yellow [facility] Epithelial Cells UA 0 TO 2 [facility] Comment on above: CORRECTED ON 10/14 A T 0835: PREVIOUSLY REPORTED 2 TO 5 Glucose Auto test strip (U) [Mass/Vol] 2+ Abnormal NEGATIVE [email or web address] Comment on above: CORRECTED ON 10/14 A T 0835: PREVIOUSLY REPORTED NEGATIVE Interpretation and review of laboratory results Abnormal [facility] Ketones (U) [Mass/Vol] Negative NEGATIVE [facility] Leukocyte esterase Auto test strip Ql (U) Negative NEGATIVE [facility] Mucus, UA TRACE Abnormal None [facility] Nitrite Auto test strip Ql (U) Negative NEGATIVE [facility] Protein (U) [Mass/Vol] 6.0 mg/dL 5.0 - 9.0 [facility] Protein (U) [Mass/Vol] Negative NEGATIVE [facility] RBC clumps Auto (Urine sed) [#/Area] 0 TO 2 [facility] Specific [place], UA High 1.010 - 1.020 [facility] Comment on above: CORRECTED ON 10/14 A T 0835: PREVIOUSLY REPORTED <1.005 Turbidity UA Clear Clear [facility] Urine Hgb Negative NEGATIVE [facility] Urobilinogen, Urine Normal Normal [facility] WBC, UA 2 TO 5 [facility] Comment on above: CORRECTED ON 10/14 A T 0835: PREVIOUSLY REPORTED 0 TO 2 [facility] BMPon 10-11-2022 Anion gap [Moles/Vol] 12 mmol/L 9 - 17 mmol/L [facility] Calcium [Mass/Vol] 9.4 mg/dL 8.6 - 10. 4 mg/dL [facility] Chloride [Moles/Vol] 101 mmol/L 98 - 10 7 mmol/L [facility] CO2 [Moles/Vol] 27 mmol/L 20 - 31 mmol/L [facility] Creatinine [Mass/Vol] 0.84 mg/dL 0.70 - 1.20 mg/dL [facility] GFR/1.73 sq M.predicted MDRD (S/P/Bld) [Vol rate/Area] - PINF [facility] Comment on above: These results are not intended for use in patients <18 years of age. eGFR results are calculated without a race factor using the 2020 CKD-EPI equation. Careful clinical correlation is recommended, particularly when comparing to results calculated using previous equations. The CKD-EPI equation is less accurate in patients with extremes of muscle mass, extra-renal metabolism of creatine, excessive creatine ingestion, or following therapy that affects renal tubular secretion. Glucose [Mass/Vol] 69 mg/dL Low 70 - 99 mg/dL [facility] Interpretation and review of laboratory results Abnormal [facility] Potassium [Moles/Vol] 3.1 mmol/L Low 3.7 - 5.3 mmol/L [facility] Sodium [Moles/Vol] 140 mmol/L 135 - 144 mmol/L [facility] Urea nitrogen [Mass/Vol] 15 mg/dL 6 - 20 mg/dL [facility] Urea nitrogen/Creatinine (Bld) [Mass ratio] 18 9 - 20 [facility] Basic Metabolic Profon 10-11 Anion gap [Moles/Vol] 12 mmol/L Normal 9-17 [facility] Comment on above: Performed By: #### B MP, LIP, CDP, LIVP #### [facility] [address] [place] [address] [place] [address] Hospice Care Transitions Coordinator: Cash Guerrero MD BUN/CRE Ratio 18 Normal -20 [facility] Comment on above: Performed By: #### B MP, LIP, CDP, LIVP #### [address] [place] [address] Hospice Care Transitions Coordinator: Cash Guerrero MD Calcium [Mass/Vol] 9.4 mg/dL Normal 8.6-10.4 [facility] Comment on above: Performed By: #### B MP, LIP, CDP, LIVP #### [facility] [address] [place] [place] [address] [place] [address] Hospice Care Transitions Coordinator: Cash Guerrero MD Chloride [Moles/Vol] 101 mmol/L Normal 98-107 [facility] Comment on above: Performed By: #### B MP, LIP, CDP, LIVP #### [facility] [address] [place] [address] [place] [address] Hospice Care Transitions Coordinator: Cash Guerrero MD CO2 [Moles/Vol] 27 mmol/L Normal 20-31 [facility] Comment on above: Performed By: #### B MP, LIP, CDP, LIVP #### [facility] [address] [place] [address] Hospice Care Transitions Coordinator: Cash Guerrero MD Creatinine [Mass/Vol] 0.84 mg/dL Normal 0.70-1.20 [facility] Comment on above: Performed By: #### B MP, LIP, CDP, LIVP #### [facility] [address] [place] [address] Hospice Care Transitions Coordinator: Cash Guerrero MD GFR/1.73 sq M.predicted among non-blacks MDRD (S/P/Bld) [Vol rate/Area] mL/min/{1.73_m2} Normal >60 [facility] Comment on above: Result Comment: These results are not intended for use in patients <18 years of age. eGFR results are calculated without a race factor using the 2020 CKD-EPI equation. Careful clinical correlation is recommended, particularly when comparing to results calculated using previous equations. The CKD-EPI equation is less accurate in patients with extremes of muscle mass, extra-renal metabolism of creatine, excessive creatine ingestion, or following therapy that affects renal tubular secretion. Performed By: #### B MP, LIP, CDP, LIVP #### [address] [place] [address] Hospice Care Transitions Coordinator: Cash Guerrero MD Glucose [Mass/Vol] 69 mg/dL Low 70-99 [facility] Comment on above: Performed By: #### B MP, LIP, CDP, LIVP #### [facility] [address] [place] [address] Hospice Care Transitions Coordinator: Cash Guerrero MD Potassium [Moles/Vol] 3.1 mmol/L Low 3.7-5.3 [facility] Comment on above: Performed By: #### B MP, LIP, CDP, LIVP #### [facility] [address] [place] [address] Hospice Care Transitions Coordinator: Cash Guerrero MD Sodium [Moles/Vol] 140 mmol/L Normal 135-144 [facility] Comment on above: Performed By: #### B LIDIA, STELLA, CDP, LIVP #### [facility] [address] [place] [address] Hospice Care Transitions Coordinator: Cash Guerrero MD Urea nitrogen [Mass/Vol] 15 mg/dL Normal 6-20 [facility] Comment on above: Performed By: #### B LIDIA, STELLA, DARLENE, LIVP #### [facility] [address] [place] [address] Hospice Care Transitions Coordinator: Cash Guerrero MD CBC with Auto Differentialon 10-11-2022 Absolute Eos # 0.06 [facility] Absolute Immature Granulocyte 0.03 [facility] Absolute Lymph # 3.65 [facility] Absolute Hand # 0.63 [facility] Basophils (Bld) [#/Vol] 0.04 10*3/uL [facility] Basophils/100 WBC (Bld) 0 % 0 - 2 % [facility] Eosinophils/100 WBC (Bld) 1 % 1 - 4 % [facility] Hematocrit (Bld) [Volume fraction] 45.7 % 40.7 - 50.3 % [facility] Hemoglobin (Bld) [Mass/Vol] 16.0 g/dL 13.0 - 17.0 g/dL [facility] Immature granulocytes/100 WBC (Bld) 0 % 0 [facility] Interpretation and review of laboratory results Abnormal [facility] Lymphocytes/100 WBC (Bld) 40 % 24 - 43 % [facility] MCH (RBC) [Entitic mass] 32.3 pg 25.2 - 33.5 pg [facility] MCHC (RBC) [Mass/Vol] 35.0 g/dL High 28.4 - 34.8 g/dL [facility] MCV (RBC) [Entitic vol] 92.3 fL 82.6 - 102.9 fL [facility] Monocytes/100 WBC (Bld) 7 % 3 - 12 % [facility] NRBC Automated 0.0 0.0 per 100 WBC [facility] Platelet distribution width (Bld) [Ratio] 11.6 % Low 11.8 - 14.4 % [facility] Platelet mean volume (Bld) [Entitic vol] 10.0 fL 8.1 - 13.5 fL [facility] Platelets (Bld) [#/Vol] 307 10*3/uL [facility] RBC (Bld) [#/Vol] 4.95 10*6/uL 4.21 - 5.7 7 m/uL [facility] Segmented neutrophils/100 WBC (Bld) 52 % 36 - 65 % [facility] Segs Absolute 4.81 [facility] WBC (Bld) [#/Vol] 9.2 10*3/uL [facility] CBC with Diffon 10-11-2022 Abs. Basophil 0.04 k/uL Normal 0.00-0.20 [facility] Comment on above: Performed By: #### B MP, LIP, CDP, LIVP #### [facility] [address] [place] [address] [address] [place], [facility]83 Hospice Care Transitions Coordinator: Cash Guerrero MD Abs.Imm.Granulocyte 0.03 k/uL Normal 0.00-0.30 [facility] Comment on above: Performed By: #### B MP, LIP, CDP, LIVP #### [facility] [address] [place] [address] [address] [place], [facility]83 Hospice Care Transitions Coordinator: Cash Guerrero MD Abs.Neutrophil (Seg) 4.81 k/uL Normal 1.50-8.10 [facility] Comment on above: Performed By: #### B MP, LIP, CDP, LIVP #### [facility] [address] [place] [address] [address] [place], [facility]83 Hospice Care Transitions Coordinator: Cash Guerrero MD Basophils/100 WBC (Bld) 0 % Normal 0-2 [facility] Comment on above: Performed By: #### B MP, LIP, CDP, LIVP #### [facility] [address] [place], [place] [id number] Hospice Care Transitions Coordinator: Cash Guerrero MD Eosinophils (Bld) [#/Vol] 0.06 10*3/uL Normal 0.00-0.44 [facility] Comment on above: Performed By: #### B MP, LIP, CDP, LIVP #### [address] [place], [place] [address] Hospice Care Transitions Coordinator: Cash Guerrero MD Eosinophils/100 WBC (Bld) 1 % Normal 1-4 [facility] Comment on above: Performed By: #### B MP, LIP, CDP, LIVP #### [address] [place] [id number] Hospice Care Transitions Coordinator: Cash Guerrero MD Erythrocyte distribution width (RBC) [Ratio] 11.6 % Low 11.8-14.4 [facility] Comment on above: Performed By: #### B MP, LIP, CDP, LIVP #### [address] [place], [facility]83 Hospice Care Transitions Coordinator: Cash Guerrero MD Hematocrit (Bld) [Volume fraction] 45.7 % Normal 40.7-50.3 [facility] Comment on above: Performed By: #### B MP, LIP, CDP, LIVP #### [address] [place], [facility]83 Hospice Care Transitions Coordinator: Cash Guerrero MD Hemoglobin (Bld) [Mass/Vol] 16.0 g/dL Normal 13.0-17.0 [facility] Comment on above: Performed By: #### B MP, LIP, CDP, LIVP #### [address] [place], [place] [id number] Hospice Care Transitions Coordinator: Cash Guerrero MD Immature granulocytes/100 WBC (Bld) 0 % Normal 0 [facility] Comment on above: Performed By: #### B MP, LIP, CDP, LIVP #### [facility] [address] [place], [place] [id number] Hospice Care Transitions Coordinator: Cash Guerrero MD Lymphocytes (Bld) [#/Vol] 3.65 10*3/uL Normal 1.10-3.70 [facility] Comment on above: Performed By: #### B MP, LIP, CDP, LIVP #### [facility] [address] [place], [place] [address] Hospice Care Transitions Coordinator: Cash Guerrero MD Lymphocytes/100 WBC (Bld) 40 % Normal 24-43 [facility] Comment on above: Performed By: #### B MP, LIP, CDP, LIVP #### [address] [place] [id number] Hospice Care Transitions Coordinator: Cash Guerrero MD MCH (RBC) [Entitic mass] 32.3 pg Normal 25.2-33.5 [facility] Comment on above: Performed By: #### B MP, LIP, CDP, LIVP #### [address] [place], [place] [id number] Hospice Care Transitions Coordinator: Cash Guerrero MD MCHC (RBC) [Mass/Vol] 35.0 g/dL High 28.4-34.8 [facility] Comment on above: Performed By: #### B MP, LIP, CDP, LIVP #### [address] [place], [place] [id number] Hospice Care Transitions Coordinator: Cash Guerrero MD MCV (RBC) [Entitic vol] 92.3 fL Normal 82.6-102.9 [facility] Comment on above: Performed By: #### B MP, LIP, CDP, LIVP #### [address] [place] [address] Hospice Care Transitions Coordinator: Cash Guerrero MD Monocytes (Bld) [#/Vol] 0.63 10*3/uL Normal 0.10-1.20 [facility] Comment on above: Performed By: #### B MP, LIP, CDP, LIVP #### [facility] [address] [place], [place] [id number] Hospice Care Transitions Coordinator: Cash Guerrero MD Monocytes/100 WBC (Bld) 7 % Normal 3-12 [facility] Comment on above: Performed By: #### B MP, LIP, CDP, LIVP #### [address] [place], [facility]83 Hospice Care Transitions Coordinator: Cash Guerrero MD Neutrophil (Seg) 52 % Normal 36-65 [facility] Comment on above: Performed By: #### B MP, LIP, CDP, LIVP #### [address] [place], [facility]83 Hospice Care Transitions Coordinator: Cash Guerrero MD NRBC Automated 0.0 per 100 WBC Normal 0.0 [facility] Comment on above: Performed By: #### B MP, LIP, CDP, LIVP #### [address] [place], [facility]83 Hospice Care Transitions Coordinator: Cash Guerrero MD Platelet mean volume (Bld) [Entitic vol] 10.0 fL Normal 8.1-13.5 [facility] Comment on above: Performed By: #### B MP, LIP, CDP, LIVP #### [address] [place], [place] [address] Hospice Care Transitions Coordinator: Cash Guerrero MD Platelets (Bld) [#/Vol] 307 10*3/uL Normal 138-453 [facility] Comment on above: Performed By: #### B MP, LIP, CDP, LIVP #### [address] [place], [place] [id number] Hospice Care Transitions Coordinator: Cash Guerrero MD RBC (Bld) [#/Vol] 4.95 10*6/uL Normal 4.21-5.77 [facility] Comment on above: Performed By: #### B MP, LIP, CDP, LIVP #### [facility] [address] [place] [address] Hospice Care Transitions Coordinator: Cash Guerrero MD WBC (Bld) [#/Vol] 9.2 10*3/uL Normal 3.5-11.3 [facility] Comment on above: Performed By: #### B MP, LIP, CDP, LIVP #### [facility] [address] [place], [place] [id number] Hospice Care Transitions Coordinator: Cash Guerrero MD CT ABDOMEN PELVIS W IV CONTR [place] 10-11-2022 CT ABDOMEN PELVIS W IV CONTRAST EXAMINATION: CT OF THE ABDOMEN AND PELVIS WITH CONTRAST 10/11/2022 5:49 pm TECHNIQUE: CT of the abdomen and pelvis was performed with the administration of intravenous contrast. Multiplanar reformatted images are provided for review. Automated exposure control, iterative reconstruction, and/or weight based adjustment of the mA/kV was utilized to reduce the radiation dose to as low as reasonably achievable. COMPARISON: 08/20/2019 HISTORY: ORDERING SYSTEM PROVIDED HISTORY: [facility] abdominal pain TECHNOLOGIST PROVIDED HISTORY: [facility] abdominal pain Decision Support Exception - unselect if not a suspected or confirmed emergency medical condition->Emergency Medical Condition (MA) FINDINGS: Lower Chest: Unremarkable. Organs: Liver is normal in contour and enhancement. Gallbladder is unremarkable. No biliary ductal dilatation. Pancreas, adrenals, kidneys, spleen, vasculature unremarkable. GI/Bowel: Bowel is nondilated without wall thickening. Appendix is normal. Pelvis: Unremarkable. Peritoneum/Retroperi toneum: No free air, free fluid, organized fluid collection, lymphadenopathy. Bones/Soft Tissues: No acute bone or soft tissue abnormality. IMPRESSION: No acute process. Interpreted by: Armando Erickson MD Signed by: Armando Erickson MD 10/11/22 Final result Normal [facility] CT ABDOMEN PELVIS W IV CONTR AST Additional Contrast? Noneon 10-11-2022 No acute process. [facility] RIS CONSOLIDATED EXAMINATION: CT OF THE ABDOMEN AND PELVIS WITH CONTRAST 10/11/2022 5:49 pm TECHNIQUE: CT of the abdomen and pelvis was performed with the administration of intravenous contrast. Multiplanar reformatted images are provided for review. Automated exposure control, iterative reconstruction, and/or weight based adjustment of the mA/kV was utilized to reduce the radiation dose to as low as reasonably achievable. COMPARISON: 08/20/2019 HISTORY: ORDERING SYSTEM PROVIDED HISTORY: [facility] abdominal pain TECHNOLOGIST PROVIDED HISTORY: [facility] abdominal pain Decision Support Exception - unselect if not a suspected or confirmed emergency medical condition->Emergency Medical Condition (MA) FINDINGS: Lower Chest: Unremarkable. Organs: Liver is normal in contour and enhancement. Gallbladder is unremarkable. No biliary ductal dilatation. Pancreas, adrenals, kidneys, spleen, vasculature unremarkable. GI/Bowel: Bowel is nondilated without wall thickening. Appendix is normal. Pelvis: Unremarkable. Peritoneum/Retroperi toneum: No free air, free fluid, organized fluid collection, lymphadenopathy. Bones/Soft Tissues: No acute bone or soft tissue abnormality. [facility] RIS CONSOLIDATED Armando Erickson MD - 10/11/2022 EXAMINATION: CT OF THE ABDOMEN AND PELVIS WITH CONTRAST 10/11/2022 5:49 pm TECHNIQUE: CT of the abdomen and pelvis was performed with the administration of intravenous contrast. Multiplanar reformatted images are provided for review. Automated exposure control, iterative reconstruction, and/or weight based adjustment of the mA/kV was utilized to reduce the radiation dose to as low as reasonably achievable. COMPARISON: 08/20/2019 HISTORY: ORDERING SYSTEM PROVIDED HISTORY: [facility] abdominal pain TECHNOLOGIST PROVIDED HISTORY: [facility] abdominal pain Decision Support Exception - unselect if not a suspected or confirmed emergency medical condition->Emergency Medical Condition (MA) FINDINGS: Lower Chest: Unremarkable. Organs: Liver is normal in contour and enhancement. Gallbladder is unremarkable. No biliary ductal dilatation. Pancreas, adrenals, kidneys, spleen, vasculature unremarkable. GI/Bowel: Bowel is nondilated without wall thickening. Appendix is normal. Pelvis: Unremarkable. Peritoneum/Retroperi toneum: No free air, free fluid, organized fluid collection, lymphadenopathy. Bones/Soft Tissues: No acute bone or soft tissue abnormality. IMPRESSION: No acute process. [facility] Phone: Radiology Study observation (narrative) [facility] Phone: CT ABDOMEN PELVIS W IV CONTR AST Additional Contrast? NoneOrdered By: Armando Erickson on 10-11-2022 [employer] Phone: Glucose, Whole Bloodon 10-11 Glucose [Mass/Vol] 91 mg/dL 74 - 100 mg/dL [facility] Glucose [Mass/Vol] 66 mg/dL Low 74 - 100 mg/dL [facility] Interpretation and review of laboratory results Abnormal [facility] Hepatic Function Panelon Albumin [Mass/Vol] 4.5 g/dL 3.5 - 5.2 g/dL [facility] Albumin/Globulin [Mass ratio] 1.5 {ratio} 1.0 - 2.5 [facility] ALP [Catalytic activity/Vol] 88 U/L 40 - 129 U/L [facility] ALT [Catalytic activity/Vol] 14 U/L 5 - 41 U/L [facility] AST [Catalytic activity/Vol] 16 U/L NINF - 40 U/L [facility] Bilirubin [Mass/Vol] 0.3 mg/dL 0.3 - 1 .2 mg/dL [facility] Bilirubin.direct [Mass/Vol] mg/dL NINF - 0.3 mg/dL [facility] Bilirubin.indirect [Mass/Vol] Can not be calculated 0.0 - 1.0 mg/dL [facility] Protein [Mass/Vol] 7.6 g/dL 6.4 - 8.3 g/dL [facility] Lipaseon 10-11-2022 Lipase [Catalytic activity/Vol] 14 U/L Normal 13-60 [facility] Comment on above: Performed By: #### B MP, LIP, CDP, LIVP #### [facility] [address] [place] [address] Hospice Care Transitions Coordinator: Cash Guerrero MD Lipase [Catalytic activity/Vol] 14 U/L 13 - 60 U/L [facility] Liver Profileon 10-11-2022 Albumin [Mass/Vol] 4.5 g/dL Normal 3.5-5.2 [facility] Comment on above: Performed By: #### U AMIC #### [facility] [address] [place], [place] [id number] Hospice Care Transitions Coordinator: Cash Guerrero MD Albumin/Glob Ratio 1.5 Normal 1.0-2.5 [facility] Comment on above: Performed By: #### U AMIC #### [facility] [address] [place], [place] [id number] Hospice Care Transitions Coordinator: Cash Guerrero MD Alkaline Phos 88 U/L Normal 40-129 [facility] Comment on above: Performed By: #### U AMIC #### [facility] [address] [place], [place] [id number] Hospice Care Transitions Coordinator: Cash Guerrero MD ALT [Catalytic activity/Vol] 14 U/L Normal 5-41 [facility] Comment on above: Performed By: #### U AMIC #### [facility] [address] [place], [place] [id number] Hospice Care Transitions Coordinator: Cash Guerrero MD AST [Catalytic activity/Vol] 16 U/L Normal <40 [facility] Comment on above: Performed By: #### U AMIC #### [facility] [address] [place] [address] [place] [place], [place] [address]83 Hospice Care Transitions Coordinator: Cash Guerrero MD Bilirubin [Mass/Vol] 0.3 mg/dL Normal 0.3-1.2 [facility] Comment on above: Performed By: #### U AMIC #### [facility] [address] [place], [place] [id number] Hospice Care Transitions Coordinator: Cash Guerrero MD Bilirubin, Indirect Can not be calculated Normal 0.0-1.0 [facility] Comment on above: Performed By: #### U AMIC #### [facility] [address] [place], [place] [id number] Hospice Care Transitions Coordinator: Cash Guerrero MD Bilirubin.indirect [Mass/Vol] mg/dL Normal <0.3 [facility] Comment on above: Performed By: #### U AMIC #### [facility] [address] [place] [address] Hospice Care Transitions Coordinator: Cash Guerrero MD Protein [Mass/Vol] 7.6 g/dL Normal 6.4-8.3 [facility] Comment on above: Performed By: #### U AMIC #### [facility] [address] [place], [place] [id number] Hospice Care Transitions Coordinator: Cash Guerrero MD No Panel Informationon 10-11 [facility] POCT glucoseOrdered By: Just on Morter on 10-11-2022 Glucose [Mass/Vol] 66 mg/dL [facility] Interpretation and review of laboratory results Normal [facility] COVID-19, Rapidon 08-17-2022 SARS-CoV-2 (COVID-19) RNA ELBERT+probe Ql (Unsp spec) Not detected Not Detected [facility] Comment on above: Rapid NAAT: The specimen is NEGATIVE for SARS-CoV-2, the novel coronavirus associated with COVID-19. The ID NOW COVID-19 assay is designed to detect the virus that causes COVID-19 in patients with signs and symptoms of infection who are suspected of COVID-19. An individual without symptoms of COVID-19 and who is not shedding SARS-CoV-2 virus would expect to have a negative (not detected) result in this assay. Negative results should be treated as presumptive and, if inconsistent with clinical signs and symptoms or necessary for patient management, should be tested with an alternative molecular assay. Negative results do not preclude SARS-CoV-2 infection and should not be used as the sole basis for patient management decisions. Fact sheet for Healthcare Providers: https://www.fda.gov/media/285546/download Fact sheet for Patients: https://www.fda.gov/media/025230/download Methodology: Isothermal Nucleic Acid Amplification Specimen Description .NASOPHARYNGEAL SWAB [facility] Flu A/B Ag Detectionon 08-17 Flu A Ag Detection Positive Abnormal NEG [facility] Comment on above: Result Comment: for Influenza A Antigen Performed By: #### F LUABA #### [facility] [address] [place] [address] Hospice Care Transitions Coordinator: Cash Guerrero MD Flu B Ag Detection Negative Normal NEG [facility] Comment on above: Result Comment: for Influenza B Antigen. Performed By: #### F LUABA #### [facility] [address] [place] [address] Hospice Care Transitions Coordinator: Cash Guerrero MD Rapid influenza A/B antigens on 08-17-2022 Flu A Antigen Positive Abnormal NEGATIVE [facility] Comment on above: for Influenza A Anti gen Flu B Antigen Negative NEGATIVE [facility] Comment on above: for Influenza B Anti gen. Interpretation and review of laboratory results Abnormal [facility] [id number] 08-17-2022 SARS-CoV-2 (COVID-19) RNA ELBERT+probe Ql (Unsp spec) Not detected Normal NOTDET [facility] Comment on above: Result Comment: Rapid NAAT: The specimen is NEGATIVE for SARS-CoV-2, the novel coronavirus associated with COVID-19. The ID NOW COVID-19 assay is designed to detect the virus that causes COVID-19 in patients with signs and symptoms of infection who are suspected of COVID-19. An individual without symptoms of COVID-19 and who is not shedding SARS-CoV-2 virus would expect to have a negative (not detected) result in this assay. Negative results should be treated as presumptive and, if inconsistent with clinical signs and symptoms or necessary for patient management, should be tested with an alternative molecular assay. Negative results do not preclude SARS-CoV-2 infection and should not be used as the sole basis for patient management decisions. Fact sheet for Healthcare Providers: https://www.fda.gov/media/053508/download Fact sheet for Patients: https://www.fda.gov/media/021500/download Methodology: Isothermal Nucleic Acid Amplification Performed By: #### C OVRB #### [facility] [address] [place] [address] Hospice Care Transitions Coordinator: Cash Guerrero MD Urgent Care Office/Clinic No alessandra 08-06-2021 Urgent Care Office/Clinic Note Chief Complaint Pt states he has had a sore throat, cough, congestion/runny nose x2 days. pos covid exposure History of Present Illness This is a 21-year-old male patient presenting to urgent care this morning with complaints of nasal/sinus congestion, sore throat, and cough for 2 to 3 days. Patient denies shortness of breath, nausea, vomiting, diarrhea or change in sense of taste or smell. Patient denies fevers, chills, body aches but endorses fatigue. Thus far patient has been taking DayQuil/NyQuil products. Patient does report a recent confirmed exposure to Covid. Patient has not received the COVID-19 vaccinations, rapid Covid swab in office today resulted negative. Review of Systems General: No fever, chills, body aches. Reports fatigue. HEENT: No eye pain. No ear pain. Patient reports nasal/sinus congestion with pressure and drainage, with sore throat. Cardiovascular: No chest pain, palpitations, or syncope. Pulmonary: No shortness of breath, wheezing. Patient reports nonproductive cough. GI: No nausea, vomiting or diarrhea. No abdominal pain. Musculoskeletal: No weakness, joint pain, back pain. No myalgias. Neuro: No headache. No dizziness. Physical Exam Vitals & Measurements T: 36.4 ?C (Oral) HR: 86 (Peripheral) RR: 16 BP: 114/70 SpO2: 96 HT: 178 cm WT: 78 kg WT: 78 kg (Dosing) BMI: 24.62 General: well-developed, in no acute distress. Neuro: Alert and oriented. Gait is steady. Speech is clear and appropriate. Eyes: Normal sclera. Nose: No visible drainage. Ears: Canals visualized without any erythema, edema, or discharge. Minimal cerumen visualized in the canals bilaterally. TM's visible and intact, pearly figueredo. No erythema, edema, or presence of a fluid line bilaterally. Good light reflex. Pharynx: Oropharynx moist, pink without erythema, edema, or exudate. Mucous membranes moist. Sinuses: No tenderness of the frontal and maxillary sinuses. Neck: Trachea midline. No lymphadenopathy. CV: Regular rate and rhythm. No murmurs, gallops, or rubs. Lungs: Clear to auscultation bilaterally. No wheezes, crackles, or rhonchi. Good air exchange bilaterally. Skin: Warm, dry, intact. No rashes, lesions, or open wounds appreciated on exposed areas of skin. Additional Vitals BP Position/Location: Sitting, Right arm Assessment/Plan 1. Viral URI Rapid Covid swab in office today resulted negative. Symptomatic treatment at home. Increase fluid intake and rest. May take Tylenol (650 mg every 6 hours) and ibuprofen (up to 800 mg every 8 hrs) as directed on packaging. Use a cool mist humidifier, Vicks Vapor rub, and elevating head of bed for sleep. Delsym (dextromethorphan) every 12 hours as needed for dry cough. Mucinex (Guifenisen) for congestion. Donley Pep nasal spray (or generic saline spray) for nasal congestion. Follow up with primary care physician in the next 5-7 days or sooner if needed. Go to emergency department for new or worsening of symptoms. Review attached education for viral illness. Medical Decision Making Chronic conditions NOT treated during this visit that affected my overall medical decision making: [] Treatment plans discussed but not opted for at this time: [] Prescribed medication that requires intensive monitoring for toxicity: [] I have reviewed the patient?s medication list for medication interactions/contrai ndications and/or for upcoming procedures: [yes or no] Time Spent with the Patient I have personally spent [20] minutes on this date, directly related to today's patient visit, including pre and post visit work, for this date of service. Time listed does not include time spent on separately billable services. Physician Comments Assessment and plan of care discussed with patient, all questions were answered, and patient is agreeable to the plan of care as written. Problem List/Past Medical History Ongoing Diabetic Historical No qualifying data Medications NovoLOG, Subcutaneous, AC Toujeo Max SoloStar, Subcutaneous, Daily Allergies penicillin (Rash) Electronically signed by Juan Carlos Brown 08/06/21 09:01 EST Normal [facility] Microalbumin (with Creat)on 07-29-2021 mALB <1.2 Low [facility] Comment on above: Result Comment: Unab le to calculate mALB/Crea ratio, mALB is <1.2 mg/dL mALB reference range not established. Performed By: #### m ALBC #### [facility] [address], [place] [id number] UCREA 55 mg/dL Normal 39-259 [facility] Comment on above: Performed By: #### m ALBC #### [facility] [address], [place] [id number] Strep Screen Group A Throato n 09-08-2020 S. pyogenes Ag IA Ql (Unsp spec) Rapid Strep A negative. A negative Rapid Group A Strep Screen result does not rule out the possibility of Group A Streptococci in the specimen. A Group A Strep DNA test is available upon request. [place] Special Requests NOT REPORTED [place] Specimen Description .THROAT [place] Basic Metabolic Panelon -2 Anion gap [Moles/Vol] 7 mmol/L Low 9 - 17 mmol/L [place] Bun/Cre Ratio 9 [place] Calcium [Mass/Vol] 8.3 mg/dL Low 8.6 - 10. 4 mg/dL [place] Chloride [Moles/Vol] 100 mmol/L 98 - 10 7 mmol/L [place] CO2 [Moles/Vol] 26 mmol/L 20 - 31 mmol/L [place] Creatinine [Mass/Vol] 0.58 mg/dL Low 0.7 - 1.2 mg/dL [place] GFR >60 >60 mL/min [place] GFR Non- >60 >60 mL/min [place] Glucose [Mass/Vol] 112 mg/dL High 70 - 99 mg/dL [place] Interpretation and review of laboratory results Abnormal [place] Potassium [Moles/Vol] 3.3 mmol/L Low 3.7 - 5.3 mmol/L [place] Sodium [Moles/Vol] 133 mmol/L Low 135 - 144 mmol/L [place] Urea nitrogen [Mass/Vol] 5 mg/dL Low 6 - 20 mg/dL [place] CBC auto differentialon 09-23 0-2020 Basophils (Bld) [#/Vol] 10*3/uL [place] Basophils/100 WBC (Bld) 0 % 0 - 2 % [place] Differential Type NOT REPORTED [place] Eosinophils (Bld) [#/Vol] 0.07 10*3/uL [place] Eosinophils/100 WBC (Bld) 2 % 1 - 4 % [place] Erythrocyte distribution width (RBC) [Ratio] 11.5 % Low 11.8 - 14.4 % [place] Hematocrit (Bld) [Volume fraction] 40.1 % Low 40.7 - 50.3 % [place] Hemoglobin (Bld) [Mass/Vol] 13.6 g/dL 13 - 17 g/dL [place] Immature granulocytes (Bld) [#/Vol] 0 % 0 [place] Immature granulocytes (Bld) [#/Vol] 10*3/uL [place] Interpretation and review of laboratory results Abnormal [place] Lymphocytes (Bld) [#/Vol] 2.29 10*3/uL [place] Lymphocytes/100 WBC (Bld) 50 % High 25 - 45 % [place] MCH (RBC) [Entitic mass] 32.0 pg 25.2 - 33.5 pg [place] MCHC (RBC) [Mass/Vol] 33.9 g/dL 28.4 - 34.8 g/dL [place] MCV (RBC) [Entitic vol] 94.4 fL 82.6 - 102.9 fL [place] Monocytes (Bld) [#/Vol] 0.38 10*3/uL [place] Monocytes/100 WBC (Bld) 8 % 2 - 8 % [place] Platelet mean volume (Bld) [Entitic vol] 9.7 fL 8.1 - 13.5 fL [place] Platelets (Bld) [#/Vol] 178 10*3/uL [place] Platelets (Bld) [#/Vol] NOT REPORTED [place] RBC (Bld) [#/Vol] 4.25 10*6/uL 4.21 - 5.7 7 m/uL [place] RBC morphology finding Nom (Bld) NOT REPORTED [place] Segmented neutrophils/100 WBC (Bld) 40 % 34 - 64 % [place] Segs Absolute 1.86 [place] WBC (Bld) [#/Vol] 4.6 10*3/uL [place] WBC (Bld) [#/Vol] 0.0 10*3/uL 0.0 per 10 0 WBC [place] WBC Morphology NOT REPORTED [place] Glucose, Whole Bloodon 10-11 Glucose [Mass/Vol] 270 mg/dL High 74 - 100 mg/dL [place] Interpretation and review of laboratory results Abnormal [place] Glucose [Mass/Vol] 136 mg/dL High 74 - 100 mg/dL [place] Interpretation and review of laboratory results Abnormal [place] Magnesiumon 10-11-2019 Magnesium [Mass/Vol] 1.6 mg/dL 1.6 - 2 .6 mg/dL [place] Metabolic Panelon 10-11-2019 GFR/1.73 sq M predicted among non-blacks MDRD (S/P/Bld) [Vol rate/Area] [place] Comment on above: Stage 1: Some kidney damage normal GFR Stage 2: Mild kidney damage GFR 60-89 Stage 3: Moderate kidney damage GFR 30-59 Stage 4: Severe kidney damage GFR 15-29 Stage 5: Severe kidney damage GFR <15 ESRD - chronic treatment by dialysis or transplant Average GFR for 20-2 9 years old: 116 mL/min/1.73sq m Chronic Kidney Disease: <60 mL/min/1.73sq m Kidney failure: <15 mL/min/1.73sq m eGFR calculated using average adult body mass. Additional eGFR calculator available at: http://www.[employer].Shoette/multiple_crcl_2012.htm Phosphoruson 10-11-2019 Phosphate [Mass/Vol] 2.8 mg/dL 2.5 - 4 .5 mg/dL [place] Basic Metabolic Panelon 09-22 Anion gap [Moles/Vol] 14 mmol/L 9 - 17 mmol/L [place] Bun/Cre Ratio 15 [place] Calcium [Mass/Vol] 8.3 mg/dL Low 8.6 - 10. 4 mg/dL [place] Chloride [Moles/Vol] 99 mmol/L 98 - 10 7 mmol/L [place] CO2 [Moles/Vol] 23 mmol/L 20 - 31 mmol/L [place] Creatinine [Mass/Vol] 0.55 mg/dL Low 0.7 - 1.2 mg/dL [place] GFR >60 >60 mL/min [place] GFR Non- >60 >60 mL/min [place] Glucose [Mass/Vol] 192 mg/dL High 70 - 99 mg/dL [place] Potassium [Moles/Vol] 3.8 mmol/L 3.7 - 5.3 mmol/L [place] Sodium [Moles/Vol] 136 mmol/L 135 - 144 mmol/L [place] Urea nitrogen [Mass/Vol] 8 mg/dL 6 - 20 mg/dL [place] Anion gap [Moles/Vol] 17 mmol/L 9 - 17 mmol/L [place] Bun/Cre Ratio 13 [place] Calcium [Mass/Vol] 8.1 mg/dL Low 8.6 - 10. 4 mg/dL [place] Chloride [Moles/Vol] 101 mmol/L 98 - 10 7 mmol/L [place] CO2 [Moles/Vol] 19 mmol/L Low 20 - 31 mmol/L [place] Creatinine [Mass/Vol] 0.62 mg/dL Low 0.7 - 1.2 mg/dL [place] GFR >60 >60 mL/min [place] GFR Non- >60 >60 mL/min [place] Glucose [Mass/Vol] 230 mg/dL High 70 - 99 mg/dL [place] Interpretation and review of laboratory results Abnormal [place] Potassium [Moles/Vol] 4.1 mmol/L 3.7 - 5.3 mmol/L [place] Sodium [Moles/Vol] 137 mmol/L 135 - 144 mmol/L [place] Urea nitrogen [Mass/Vol] 8 mg/dL 6 - 20 mg/dL [place] Anion gap [Moles/Vol] 10 mmol/L 9 - 17 mmol/L [place] Bun/Cre Ratio 13 [place] Calcium [Mass/Vol] 8.2 mg/dL Low 8.6 - 10. 4 mg/dL [place] Chloride [Moles/Vol] 100 mmol/L 98 - 10 7 mmol/L [place] CO2 [Moles/Vol] 25 mmol/L 20 - 31 mmol/L [place] Creatinine [Mass/Vol] 0.71 mg/dL 0.7 - 1.2 mg/dL [place] GFR >60 >60 mL/min [place] GFR Non- >60 >60 mL/min [place] Glucose [Mass/Vol] 100 mg/dL High 70 - 99 mg/dL [place] Interpretation and review of laboratory results Abnormal [place] Potassium [Moles/Vol] 3.7 mmol/L 3.7 - 5.3 mmol/L [place] Sodium [Moles/Vol] 135 mmol/L 135 - 144 mmol/L [place] Urea nitrogen [Mass/Vol] 9 mg/dL 6 - 20 mg/dL [place] CBC auto differentialon 09-22 Basophils (Bld) [#/Vol] 10*3/uL [place] Basophils/100 WBC (Bld) 0 % 0 - 2 % [place] Differential Type NOT REPORTED [place] Eosinophils (Bld) [#/Vol] 0.07 10*3/uL [place] Eosinophils/100 WBC (Bld) 1 % 1 - 4 % [place] Erythrocyte distribution width (RBC) [Ratio] 11.2 % Low 11.8 - 14.4 % [place] Hematocrit (Bld) [Volume fraction] 39.1 % Low 40.7 - 50.3 % [place] Hemoglobin (Bld) [Mass/Vol] 13.3 g/dL 13 - 17 g/dL [place] Immature granulocytes (Bld) [#/Vol] 10*3/uL [place] Immature granulocytes (Bld) [#/Vol] 0 % 0 [place] Interpretation and review of laboratory results Abnormal [place] Lymphocytes (Bld) [#/Vol] 2.81 10*3/uL [place] Lymphocytes/100 WBC (Bld) 49 % High 25 - 45 % [place] MCH (RBC) [Entitic mass] 31.6 pg 25.2 - 33.5 pg [place] MCHC (RBC) [Mass/Vol] 34.0 g/dL 28.4 - 34.8 g/dL [place] MCV (RBC) [Entitic vol] 92.9 fL 82.6 - 102.9 fL [place] Monocytes (Bld) [#/Vol] 0.38 10*3/uL [place] Monocytes/100 WBC (Bld) 7 % 2 - 8 % [place] Platelet mean volume (Bld) [Entitic vol] 10.6 fL 8.1 - 13.5 fL [place] Platelets (Bld) [#/Vol] 191 10*3/uL [place] Platelets (Bld) [#/Vol] NOT REPORTED [place] RBC (Bld) [#/Vol] 4.21 10*6/uL 4.21 - 5.7 7 m/uL [place] RBC morphology finding Nom (Bld) NOT REPORTED [place] Segmented neutrophils/100 WBC (Bld) 43 % 34 - 64 % [place] Segs Absolute 2.44 [place] WBC (Bld) [#/Vol] 5.7 10*3/uL [place] WBC (Bld) [#/Vol] 0.0 10*3/uL 0.0 per 10 0 WBC [place] WBC Morphology NOT REPORTED [place] Glucose, Whole Bloodon 10-10 Glucose [Mass/Vol] 196 mg/dL High 74 - 100 mg/dL [place] Interpretation and review of laboratory results Abnormal [place] Glucose [Mass/Vol] 103 mg/dL High 74 - 100 mg/dL [place] Interpretation and review of laboratory results Abnormal [place] Glucose [Mass/Vol] 209 mg/dL High 74 - 100 mg/dL [place] Interpretation and review of laboratory results Abnormal [place] Glucose [Mass/Vol] 166 mg/dL High 74 - 100 mg/dL [place] Interpretation and review of laboratory results Abnormal [place] Glucose [Mass/Vol] 288 mg/dL High 74 - 100 mg/dL [place] Interpretation and review of laboratory results Abnormal [place] Glucose [Mass/Vol] 267 mg/dL High 74 - 100 mg/dL [place] Interpretation and review of laboratory results Abnormal [place] Glucose [Mass/Vol] 234 mg/dL High 74 - 100 mg/dL [place] Interpretation and review of laboratory results Abnormal [place] Glucose [Mass/Vol] 190 mg/dL High 74 - 100 mg/dL [place] Interpretation and review of laboratory results Abnormal [place] Glucose [Mass/Vol] 160 mg/dL High 74 - 100 mg/dL [place] Interpretation and review of laboratory results Abnormal [place] Glucose [Mass/Vol] 108 mg/dL High 74 - 100 mg/dL [place] Interpretation and review of laboratory results Abnormal [place] Glucose [Mass/Vol] 102 mg/dL High 74 - 100 mg/dL [place] Interpretation and review of laboratory results Abnormal [place] Glucose [Mass/Vol] 91 mg/dL 74 - 100 mg/dL [place] Magnesiumon 10-10-2019 Magnesium [Mass/Vol] 1.7 mg/dL 1.6 - 2 .6 mg/dL [place] Magnesium [Mass/Vol] 1.7 mg/dL 1.6 - 2 .6 mg/dL [place] Magnesium [Mass/Vol] 1.8 mg/dL 1.6 - 2 .6 mg/dL [place] Metabolic Panelon 10-10-2019 GFR/1.73 sq M predicted among non-blacks MDRD (S/P/Bld) [Vol rate/Area] [place] Comment on above: Stage 1: Some kidney damage normal GFR Stage 2: Mild kidney damage GFR 60-89 Stage 3: Moderate kidney damage GFR 30-59 Stage 4: Severe kidney damage GFR 15-29 Stage 5: Severe kidney damage GFR <15 ESRD - chronic treatment by dialysis or transplant Average GFR for 20- 9 years old: 116 mL/min/1.73sq m Chronic Kidney Disease: <60 mL/min/1.73sq m Kidney failure: <15 mL/min/1.73sq m eGFR calculated using average adult body mass. Additional eGFR calculator available at: http://www.[employer]/multiple_crcl_2012.htm GFR/1.73 sq M predicted among non-blacks MDRD (S/P/Bld) [Vol rate/Area] [place] Comment on above: Stage 1: Some kidney damage normal GFR Stage 2: Mild kidney damage GFR 60-89 Stage 3: Moderate kidney damage GFR 30-59 Stage 4: Severe kidney damage GFR 15-29 Stage 5: Severe kidney damage GFR <15 ESRD - chronic treatment by dialysis or transplant Average GFR for 20-2 9 years old: 116 mL/min/1.73sq m Chronic Kidney Disease: <60 mL/min/1.73sq m Kidney failure: <15 mL/min/1.73sq m eGFR calculated using average adult body mass. Additional eGFR calculator available at: http://www.[employer]/multiple_crcl_2012.htm GFR/1.73 sq M predicted among non-blacks MDRD (S/P/Bld) [Vol rate/Area] [place] Comment on above: Stage 1: Some kidney damage normal GFR Stage 2: Mild kidney damage GFR 60-89 Stage 3: Moderate kidney damage GFR 30-59 Stage 4: Severe kidney damage GFR 15-29 Stage 5: Severe kidney damage GFR <15 ESRD - chronic treatment by dialysis or transplant Average GFR for 20-2 9 years old: 116 mL/min/1.73sq m Chronic Kidney Disease: <60 mL/min/1.73sq m Kidney failure: <15 mL/min/1.73sq m eGFR calculated using average adult body mass. Additional eGFR calculator available at: http://www.[employer]/multiple_crcl_2011.htm Otheron 10-10-2019 Interpretation and review of laboratory results Abnormal [place] Phosphoruson 10-10-2019 Phosphate [Mass/Vol] 1.8 mg/dL Low 2.5 - 4 .5 mg/dL [place] Phosphate [Mass/Vol] 2.8 mg/dL 2.5 - 4 .5 mg/dL [place] Phosphate [Mass/Vol] 3.3 mg/dL 2.5 - 4 .5 mg/dL [place] Basic Metabolic Panelon 09-22 Anion gap [Moles/Vol] 22 mmol/L High 9 - 17 mmol/L [place] Bun/Cre Ratio 20 [place] Calcium [Mass/Vol] 8.6 mg/dL 8.6 - 10. 4 mg/dL [place] Chloride [Moles/Vol] 88 mmol/L Low 98 - 10 7 mmol/L [place] CO2 [Moles/Vol] 19 mmol/L Low 20 - 31 mmol/L [place] Creatinine [Mass/Vol] 0.86 mg/dL 0.7 - 1.2 mg/dL [place] GFR >60 >60 mL/min [place] GFR Non- >60 >60 mL/min [place] Glucose [Mass/Vol] 637 mg/dL Critically high 70 - 9 9 mg/dL [place] Interpretation and review of laboratory results Abnormal [place] Potassium [Moles/Vol] 4.5 mmol/L 3.7 - 5.3 mmol/L [place] Sodium [Moles/Vol] 129 mmol/L Low 135 - 144 mmol/L [place] Urea nitrogen [Mass/Vol] 17 mg/dL 6 - 20 mg/dL [place] Beta-Hydroxybutyrateon 10-09 Beta-Hydroxybutyrate 5.19 mmol/L High 0.02 - 0.27 mmol/L [place] Interpretation and review of laboratory results Abnormal [place] Blood Gas, Arterialon 2019 Jacob Test PASS [place] aPTT Coag (Bld) [Time] 37.0 s [place], [place] Carboxyhemoglobin 0 - 5 % [place], [place] FIO2 21 [place] HCO3, Arterial 18.3 mmol/L Low 22 - 26 mmol/L [place] Interpretation and review of laboratory results Abnormal [place] Methemoglobin NOT REPORTED 0 - 1.9 % [place], [place] Mode NOT REPORTED [place] Negative Base Excess, Art 6.7 mmol/L High 0 - 2 mmol/L [place] NOTIFICATION NOT REPORTED [place] NOTIFICATION TIME NOT REPORTED [place] O2 Device/Flow/% ROOM AIR [place] Oxygen saturation in Blood 97.3 % 95 - 98 % [place] Oxyhemoglobin NOT REPORTED 95 - 98 % [place] pCO2, Art, Temp Adj NOT REPORTED [place] pCO2, Arterial 35.2 [place] Peep/Cpap NOT REPORTED [place] pH, Art, Temp Adj NOT REPORTED [place] pH, Arterial 7.333 Low [place] pO2, Art, Temp Adj NOT REPORTED [place] pO2, Arterial 101.1 [facility] [place] Positive Base Excess, Art NOT REPORTED 0 - 2 mmol/L [place] PSV NOT REPORTED [place] Pt. Position SEMI-FOWLERS [place] Sample Site Right Radial Artery [place] Set Rate NOT REPORTED [place] Text for Respiratory NOT REPORTED Me [place], [place] Total Hb NOT REPORTED 12 - 16 g/dl [place] Total Rate NOT REPORTED [place] VT NOT REPORTED [place] CBC Auto Differentialon 09-22 Basophils (Bld) [#/Vol] 0.03 10*3/uL [place] Basophils/100 WBC (Bld) 1 % 0 - 2 % [place] Differential Type NOT REPORTED [place] Eosinophils (Bld) [#/Vol] 0.03 10*3/uL [place] Eosinophils/100 WBC (Bld) 1 % 1 - 4 % [place] Erythrocyte distribution width (RBC) [Ratio] 11.1 % Low 11.8 - 14.4 % [place] Hematocrit (Bld) [Volume fraction] 43.3 % 40.7 - 50.3 % [place] Hemoglobin (Bld) [Mass/Vol] 15.0 g/dL 13 - 17 g/dL [place] Immature granulocytes (Bld) [#/Vol] 0 % 0 [place] Immature granulocytes (Bld) [#/Vol] 10*3/uL [place] Interpretation and review of laboratory results Abnormal [place] Lymphocytes (Bld) [#/Vol] 1.07 10*3/uL Low [place] Lymphocytes/100 WBC (Bld) 17 % Low 25 - 45 % [place] MCH (RBC) [Entitic mass] 31.8 pg 25.2 - 33.5 pg [place] MCHC (RBC) [Mass/Vol] 34.6 g/dL 28.4 - 34.8 g/dL [place] MCV (RBC) [Entitic vol] 91.7 fL 82.6 - 102.9 fL [place] Monocytes (Bld) [#/Vol] 0.26 10*3/uL [place] Monocytes/100 WBC (Bld) 4 % 2 - 8 % [place] Platelet mean volume (Bld) [Entitic vol] 10.6 fL 8.1 - 13.5 fL [place] Platelets (Bld) [#/Vol] NOT REPORTED [place] Platelets (Bld) [#/Vol] 185 10*3/uL [place] RBC (Bld) [#/Vol] 4.72 10*6/uL 4.21 - 5.7 7 m/uL [place] RBC morphology finding Nom (Bld) NOT REPORTED [place] Segmented neutrophils/100 WBC (Bld) 77 % High 34 - 64 % [place] Segs Absolute 4.80 [place] WBC (Bld) [#/Vol] 0.0 10*3/uL 0.0 per 10 0 WBC [place] WBC (Bld) [#/Vol] 6.2 10*3/uL [place] WBC Morphology NOT REPORTED [place] EKG 12 leadon 10-09-2019 Atrial Rate 79 BPM [place], [place] P Benson 31 degrees [place] P-R Interval 146 ms [place] Q-T Interval 384 ms [place] QRS Duration 94 ms [place] QTc Calculation (Bazett) 440 ms [place], [place] R Benson 66 degrees [facility], [place] T Benson 53 degrees [place] Ventricular Rate 79 BPM [place] Normal sinus rhythm Normal ECG When compared with ECG of 20-AUG-2019 08:17, No significant change was found Confirmed by YADIEL MCDANIEL ([id number]) on 10/09/2019 10:43:10 PM [place], Mhpn Incoming Ekg Results From [facility] - 10/09/2019 10:43 PM EST Normal sinus rhythm Normal ECG When compared with ECG of 20-AUG-2019 08:17, No significant change was found Confirmed by YADIEL MCDANIEL ([id number]) on 10/09/2019 10:43:10 PM [place] Glucose, Whole Bloodon 10-09 Glucose [Mass/Vol] 86 mg/dL 74 - 100 mg/dL [place] Glucose [Mass/Vol] 123 mg/dL High 74 - 100 mg/dL [place] Interpretation and review of laboratory results Abnormal [place] Glucose [Mass/Vol] 174 mg/dL High 74 - 100 mg/dL [place] Interpretation and review of laboratory results Abnormal [place] Glucose [Mass/Vol] 243 mg/dL High 74 - 100 mg/dL [place] Interpretation and review of laboratory results Abnormal [place] Glucose [Mass/Vol] 423 mg/dL High 74 - 100 mg/dL [place] Interpretation and review of laboratory results Abnormal [place] Glucose [Mass/Vol] 521 mg/dL Critically high 74 - 1 00 mg/dL [place] Interpretation and review of laboratory results Abnormal [place] Metabolic Panelon 10-09-2019 GFR/1.73 sq M predicted among non-blacks MDRD (S/P/Bld) [Vol rate/Area] [place] Comment on above: Average GFR for 20-2 9 years old: 116 mL/min/1.73sq m Chronic Kidney Disease: <60 mL/min/1.73sq m Kidney failure: <15 mL/min/1.73sq m eGFR calculated using average adult body mass. Additional eGFR calculator available at: http://www.[employer].Shoette/multiple_crcl_2012.htm Stage 1: Some kidney damage normal GFR Stage 2: Mild kidney damage GFR 60-89 Stage 3: Moderate kidney damage GFR 30-59 Stage 4: Severe kidney damage GFR 15-29 Stage 5: Severe kidney damage GFR <15 ESRD - chronic treatment by dialysis or transplant POCT Glucoseon 10-09-2019 Glucose [Mass/Vol] 423 mg/dL [place] Interpretation and review of laboratory results Normal [place] QC OK? yes [place] POCT glucoseon 10-09-2019 Glucose [Mass/Vol] 521 mg/dL [place] Interpretation and review of laboratory results Normal [place] Urinalysis with Microscopico n 10-09-2019 Amorphous, UA NOT REPORTED None [place] Bacteria, UA NOT REPORTED None [place] Bilirubin Urine Negative NEGATIVE [place] Casts UA NOT REPORTED /LPF [place] Color, UA YELLOW YELLOW [place] Crystals UA NOT REPORTED None /HPF [place] Epithelial Cells UA None [place] Glucose, Ur 3+ Abnormal NEGATIVE [place] Interpretation and review of laboratory results Abnormal [place] Ketones Ql (U) 3+ Abnormal NEGATIVE [place] Leukocyte esterase Test strip Ql (U) Negative NEGATIVE [place] Mucus, UA NOT REPORTED None [place], [place] Nitrite, Urine Negative NEGATIVE [place] Other Observations UA NOT REPORTED NOT REQ. M [place] pH, UA 6.0 [place] Protein (U) [Mass/Vol] Negative NEGATIVE [place], [place] RBC (U) [#/Vol] None [place], [place] Renal Epithelial, Urine NOT REPORTED 0 /HPF [place] Specific [place], UA 1.015 [place], [place] Trichomonas, UA NOT REPORTED None [place], [place] Turbidity UA CLEAR CLEAR [place] Urinalysis Comments NOT REPORTED [place] Urine Hgb Negative NEGATIVE [place] Urobilinogen, Urine Normal Normal [place] WBC, UA None [place] Yeast, UA NOT REPORTED None [place] - [place] XR CHEST PORTABLEon 10-09-19 20 No acute process. [place] EXAMINATION: ONE XRAY VIEW OF THE CHEST 10/09/2019 7:24 pm COMPARISON: January 20, 2019 HISTORY: ORDERING SYSTEM PROVIDED HISTORY: dka TECHNOLOGIST PROVIDED HISTORY: If not done in ER dka FINDINGS: The lungs are without acute focal process. There is no effusion or pneumothorax. The cardiomediastinal silhouette is without acute process. The osseous structures are without acute process. [place], [place] Hernan, Mhpn Incoming Radiant Results From Outsell/Damballa - 10/09/2019 7:44 PM EST EXAMINATION: ONE XRAY VIEW OF THE CHEST 10/09/2019 7:24 pm COMPARISON: January 20, 2019 HISTORY: ORDERING SYSTEM PROVIDED HISTORY: dka TECHNOLOGIST PROVIDED HISTORY: If not done in ER dka FINDINGS: The lungs are without acute focal process. There is no effusion or pneumothorax. The cardiomediastinal silhouette is without acute process. The osseous structures are without acute process. IMPRESSION: No acute process. [facility] [email or web address] Beta-HydroxybuterateOrdered By: Hank Peoples on 08-20-2019 Beta-Hydroxybutyrate 5.04 mmol/L High 0.02 - 0.27 mmol/L [employer] Work Phone: Blood gas, venousOrdered By: Hank Peoples on 08-20-2019 Jacob Test PASS [employer] Phone: Carboxyhemoglobin 0 - 5 % [facility]10[employer] [facility] Work Phone: FIO2 NOT REPORTED [facility] CenterXris[facility] Labs Ltd[facility] Work Phone: HCO3 (Bld) [Moles/Vol] 17.3 mmol/L Low 24 - 30 mmol/L [employer] Work Phone: Interpretation and review of laboratory results Abnormal [employer] Work Phone: Methemoglobin NOT REPORTED 0 - 1.9 % [facility] Centerfro[facility] Work Phone: Mode NOT REPORTED [employer] Work Phone: Negative Base Excess, Wayne 7.5 mmol/L High 0 - 2 mmol/L [employer] Work Phone: NOTIFICATION NOT REPORTED [employer] Work Phone: NOTIFICATION TIME NOT REPORTED [facility] Work Phone: O2 Device/Flow/% ROOM AIR [employer]ley [employer] [facility] Work Phone: Oxygen saturation in Blood 84.6 % 60 - 85 % [facility] Work Phone: Oxyhemoglobin NOT REPORTED 95 - 98 % [employer] Work Phone: pCO2, Wayne 33.4 Low [facility] Work Phone: pCO2, Wayne, Temp Adj NOT REPORTED [facility] Work Phone: Peep/Cpap NOT REPORTED [facility] Work Phone: pH, Wayne 7.332 [facility] Work Phone: pH, Wayne, Temp Adj NOT REPORTED [facility] Work Phone: pO2, Wayne 51.5 High [facility] Work Phone: pO2, Wayne, Temp Adj NOT REPORTED [facility] Work Phone: Positive Base Excess, Wayne NOT REPORTED 0 - 2 mmol/L [facility] Work Phone: PSV NOT REPORTED [facility] Work Phone: Pt Temp 37 [facility] Work Phone: Pt. Position SEMI-FOWLERS [facility] Center[facility] Work Phone: Respiratory Rate NOT REPORTED [facility] Work Phone: Sample Site Right Brachial Artery [facility] Work Phone: Set Rate NOT REPORTED [facility] Work Phone: Text for Respiratory NOT REPORTED [facility] Work Phone: Total Hb NOT REPORTED 12 - 16 g/dl [facility] Center[facility] Work Phone: Total Rate NOT REPORTED [facility] Work Phone: VT NOT REPORTED [employer] Work Phone: CBC Auto DifferentialOrdered By: Hank Peoples on 08-20-2019 Absolute Eos # <0.03 [facility] Work Phone: Absolute Immature Granulocyte 0.03 [employer] Work Phone: Absolute Lymph # 0.93 Low [employer] [facility] Work Phone: Absolute Hand # 0.50 [employer] [facility] Work Phone: Basophils (Bld) [#/Vol] 0.03 10*3/uL [employer] Work Phone: Basophils/100 WBC (Bld) 0 % 0 - 2 % [employer] Phone: Differential Type NOT REPORTED [employer] Work Phone: Eosinophils/100 WBC (Bld) 0 % Low 1 - 4 % [employer] Work Phone: Erythrocyte distribution width (RBC) [Ratio] 11.5 % Low 11.8 - 14.4 % [employer] Phone: Hematocrit (Bld) [Volume fraction] 46.6 % 40.7 - 50.3 % [employer] Phone: Hemoglobin (Bld) [Mass/Vol] 16.4 g/dL 13 - 17 g/dL [employer] Work Phone: Immature granulocytes/100 WBC (Bld) 0 % 0 [employer] Phone: Interpretation and review of laboratory results Abnormal [employer] Phone: Lymphocytes/100 WBC (Bld) 11 % Low 25 - 45 % [employer] Work Phone: MCH (RBC) [Entitic mass] 32.4 pg 25.2 - 33.5 pg [employer] Work Phone: MCHC (RBC) [Mass/Vol] 35.2 g/dL High 28.4 - 34.8 g/dL [employer] Phone: MCV (RBC) [Entitic vol] 92.1 fL 82.6 - 102.9 fL [employer] Phone: Monocytes/100 WBC (Bld) 6 % 2 - 8 % [employer] Phone: NRBC Automated 0.0 0.0 per 100 WBC [employer] Phone: Platelet Estimate NOT REPORTED [employer] Phone: Platelet mean volume (Bld) [Entitic vol] 10.0 fL 8.1 - 13.5 fL [employer] Phone: Platelets (Bld) [#/Vol] 254 10*3/uL [employer] Phone: RBC (Bld) [#/Vol] 5.06 10*6/uL 4.21 - 5.7 7 m/uL [employer] Phone: RBC morphology finding Nom (Bld) NOT REPORTED [employer] Phone: Segmented neutrophils/100 WBC (Bld) 83 % High 34 - 64 % [employer] Phone: Segs Absolute 6.96 [employer] Work Phone: WBC (Bld) [#/Vol] 8.5 10*3/uL [employer] Phone: WBC Morphology NOT REPORTED [employer] [facility] Work Phone: CT ABDOMEN PELVIS W IV CONTR AST Additional Contrast? NoneOrdered By: Hank Peoples on 08-20-2019 1. No acute infective or inflammatory process. In particular no evidence for acute appendicitis. 2. No bowel obstruction. [employer] Phone: EXAMINATION: CT OF THE ABDOMEN AND PELVIS WITH CONTRAST 08/20/2019 8:44 am TECHNIQUE: CT of the abdomen and pelvis was performed with the administration of intravenous contrast. Multiplanar reformatted images are provided for review. Dose modulation, iterative reconstruction, and/or weight based adjustment of the mA/kV was utilized to reduce the radiation dose to as low as reasonably achievable. COMPARISON: No previous HISTORY: ORDERING SYSTEM PROVIDED HISTORY: periumbilical abdominal tenderness TECHNOLOGIST PROVIDED HISTORY: periumbilical abdominal tenderness FINDINGS: Lower Chest: The visualized heart and lungs show no acute abnormalities. Organs: The liver, spleen, pancreas, kidneys and adrenal glands show no significant abnormality. Gallbladder is also grossly normal showing no evidence for gallstones. GI/Bowel: There is limited evaluation due to absence of oral contrast. The stomach shows no focal lesions. Small bowel loops normal in caliber showing no focal abnormalities. Normal appendix. Evaluation of the colon shows no acute process. Pelvis: Moderately distended urinary bladder is otherwise unremarkable. No suspicious pelvic mass. Peritoneum/Retroperi toneum: No free intraperitoneal fluid or significant lymphadenopathy. Bones/Soft Tissues: No acute abnormality of the bones. The superficial soft tissues show no significant abnormalities. [employer] Phone: Hernan, [facility] Incoming Radiant Results From Outsell/Damballa - 08/20/2019 9:05 AM EST EXAMINATION: CT OF THE ABDOMEN AND PELVIS WITH CONTRAST 08/20/2019 8:44 am TECHNIQUE: CT of the abdomen and pelvis was performed with the administration of intravenous contrast. Multiplanar reformatted images are provided for review. Dose modulation, iterative reconstruction, and/or weight based adjustment of the mA/kV was utilized to reduce the radiation dose to as low as reasonably achievable. COMPARISON: No previous HISTORY: ORDERING SYSTEM PROVIDED HISTORY: periumbilical abdominal tenderness TECHNOLOGIST PROVIDED HISTORY: periumbilical abdominal tenderness FINDINGS: Lower Chest: The visualized heart and lungs show no acute abnormalities. Organs: The liver, spleen, pancreas, kidneys and adrenal glands show no significant abnormality. Gallbladder is also grossly normal showing no evidence for gallstones. GI/Bowel: There is limited evaluation due to absence of oral contrast. The stomach shows no focal lesions. Small bowel loops normal in caliber showing no focal abnormalities. Normal appendix. Evaluation of the colon shows no acute process. Pelvis: Moderately distended urinary bladder is otherwise unremarkable. No suspicious pelvic mass. Peritoneum/Retroperi toneum: No free intraperitoneal fluid or significant lymphadenopathy. Bones/Soft Tissues: No acute abnormality of the bones. The superficial soft tissues show no significant abnormalities. IMPRESSION: 1. No acute infective or inflammatory process. In particular no evidence for acute appendicitis. 2. No bowel obstruction. [employer] Phone: Comprehensive Metabolic Pane l w/ Reflex to MGOrdered By: Hank Peoples on 08-20-2019 Albumin [Mass/Vol] 4.5 g/dL 3.5 - 5.2 g/dL [employer] Phone: Albumin/Globulin [Mass ratio] 1.4 {ratio} [employer] Phone: ALP [Catalytic activity/Vol] 105 U/L 40 - 129 U/L [employer] Phone: ALT [Catalytic activity/Vol] 18 U/L 5 - 41 U/L [employer] Phone: Anion gap [Moles/Vol] 26 mmol/L High 9 - 17 mmol/L [employer] Phone: AST [Catalytic activity/Vol] 15 U/L <40 [employer] Phone: Bilirubin [Mass/Vol] 0.29 mg/dL Low 0.3 - 1 .2 mg/dL [employer] Phone: Bun/Cre Ratio 16 [employer] Work Phone: Calcium [Mass/Vol] 10.0 mg/dL 8.6 - 10. 4 mg/dL [employer] Phone: Chloride [Moles/Vol] 90 mmol/L Low 98 - 10 7 mmol/L [employer] Phone: CO2 [Moles/Vol] 17 mmol/L Low 20 - 31 mmol/L [employer] Phone: Creatinine [Mass/Vol] 1.05 mg/dL 0.7 - 1.2 mg/dL [employer] Phone: GFR >60 >60 mL/min [employer] Phone: GFR Comment [employer] Phone: Comment on above: Average GFR for 20-2 9 years old: 116 mL/min/1.73sq m Chronic Kidney Disease: <60 mL/min/1.73sq m Kidney failure: <15 mL/min/1.73sq m eGFR calculated using average adult body mass. Additional eGFR calculator available at: http://www.Ikanos/multiple_crcl_2012.htm GFR Non- >60 >60 mL/min [employer] Phone: GFR Staging [employer] Phone: Comment on above: Stage 1: Some kidney damage normal GFR Stage 2: Mild kidney damage GFR 60-89 Stage 3: Moderate kidney damage GFR 30-59 Stage 4: Severe kidney damage GFR 15-29 Stage 5: Severe kidney damage GFR <15 ESRD - chronic treatment by dialysis or transplant Glucose [Mass/Vol] 302 mg/dL High 70 - 99 mg/dL [employer] Phone: Potassium [Moles/Vol] 3.2 mmol/L Low 3.7 - 5.3 mmol/L [employer] Phone: Protein [Mass/Vol] 7.8 g/dL 6.4 - 8.3 g/dL [employer] Phone: Sodium [Moles/Vol] 133 mmol/L Low 135 - 144 mmol/L [employer] Phone: Urea nitrogen [Mass/Vol] 17 mg/dL 6 - 20 mg/dL [employer] Phone: EKG 12 LeadOrdered By: Hank Peoples on 08-20-2019 Atrial Rate 100 BPM [employer] Phone: P Benson 72 degrees [employer] Phone: P-R Interval 150 ms [employer] Phone: Q-T Interval 352 ms [employer] Phone: QRS Duration 94 ms [employer] Phone: QTc Calculation (Bazett) 454 ms [employer] Phone: R Benson 90 degrees [employer] Phone: T Benson 64 degrees [employer] Phone: Ventricular Rate 100 BPM [employer] Phone: Normal sinus rhythm Rightward axis Borderline ECG When compared with ECG of 20-JAN-2019 00:11, No significant change was found Confirmed by Yosef Cruz MD ([id number]) on 08/20/2019 10:12:05 AM [employer] Phone: HernanYon Incoming Ekg Results From ReferralCandy - 08/20/2019 10:12 AM EST Normal sinus rhythm Rightward axis Borderline ECG When compared with ECG of 20-JAN-2019 00:11, No significant change was found Confirmed by Yosef Cruz MD ([id number]) on 08/20/2019 10:12:05 AM [employer] Phone: Glucose, Whole BloodOrdered By: Hank Peoples on 08-20-2019 Glucose [Mass/Vol] 114 mg/dL High 74 - 100 mg/dL [employer] Phone: Interpretation and review of laboratory results Abnormal [employer] Phone: Glucose [Mass/Vol] 227 mg/dL High 74 - 100 mg/dL [employer] Phone: Interpretation and review of laboratory results Abnormal [employer] Phone: LipaseOrdered By: Hank weiss on 08-20-2019 Lipase [Catalytic activity/Vol] 10 U/L Low 13 - 60 U/L [employer] Phone: MagnesiumOrdered By: Hank wilson on 08-20-2019 Magnesium [Mass/Vol] 2.0 mg/dL 1.6 - 2 .6 mg/dL [employer] Phone: No Panel InformationOrdered By: Hank Peoples on 08-20-2019 Interpretation and review of laboratory results Abnormal [employer] Phone: POCT glucoseOrdered By: Ho Peoples on 08-20-2019 Glucose [Mass/Vol] 114 mg/dL [employer] Phone: Interpretation and review of laboratory results Normal [employer] Phone: QC OK? yes [employer] Phone: Glucose [Mass/Vol] 227 mg/dL [employer] Phone: Interpretation and review of laboratory results Normal [employer] Phone: QC OK? yes [employer] Phone: IGAon 08-30-2018 IgA mass conc 182 mg/dL Normal 61-348 Endocrine a me Diabetes [facility] Comment on above: Result Comment: Test performed at [facility] [address] [place] [address] CLIA Number [id number] CAP Accreditation Number [id number] [facility] [address] [place] [address] 555[address]EEWS No. [id number] CAP Accreditation No. [id number] Director: Yves Abdalla M.D. Performed By: #### 8 00, 1005, 4500, 4520, 24999, 39365, 02236, 83475 ####[facility] Unless Otherwise [id number] [place] [address]Lyjiv: [phone]/ VAJF #4724/CLIA # [id number] TTG IgAon 08-30-2018 TTG IgA <1.2 Normal SEE BELOW [facility] Comment on above: Result Comment: INTE RPRETATION TTG IgA NEGATIVE U/ML <4.0 WEAK POSITIVE U/ML 4.0-10.0 POSITIVE U/ML >10.0 Test performed at [facility] [address] [place] [address] CLIA Number [id number] CAP Accreditation Number [id number] Performed By: #### 8 00, 1005, 2130, 1020, 99653, 90461, 03856, 97674 ####[facility], Inc[facility] Unless Otherwise [id number] [address] [address]Fakjl: [phone]/ NWAN #4724/CLIA # [id number] TTG IgGon 08-30-2018 TTG IgG <1.2 Normal SEE BELOW [facility] and Diabetes [facility] Comment on above: Result Comment: INTE RPRETATION TTG IgG NEGATIVE U/ML <6.0 WEAK POSITIVE U/ML 6.0-9.0 POSITIVE U/ML >9.0 Test performed at [facility] [address] [place] [address] CLIA Number [id number] CAP Accreditation Number [id number] Performed By: #### 8 00, 1005, 5700, 5620, 77424, 04053, 62802, 73423 ####[facility], [facility] Unless Otherwise [id number] [address] [address]Epdpo: [phone]/ ACXB #8924/CLIA # [id number] LDL-CHOL, DIRECTon 9 LDL-CHOL, DIRECT 117 mg/dL High <100 Endocr[facility] Comment on above: Performed By: #### 8 00, 1005, 4500, 4520, 48139, 61986, 48076, 73562 ####[facility] Unless Otherwise [id number] [address]Sujgp: [phone]/ HTZU #4724/CLIA # [id number] FT4on 08-28-2018 T4 free mass conc 1.16 ng/dL Normal 0.80-2.70 [facility] Comment on above: Performed By: #### 8 00, 1005, 4500, 4520, 44254, 13344, 05203, 48820 ####[facility] Unless Otherwise [id number] [address]Ljvsr: [phone]/ GAGH #4724/CLIA # [id number] Lipidson 08-28-2018 Cholesterol in HDL mass conc 43.0 mg/dL Normal 40.0-60.0 [facility] Comment on above: Performed By: #### 8 00, 1005, 4500, 4520, 52729, 28288, 18372, 57839 ####[facility] Unless Otherwise [id number] [address] [address]Avceq: [phone]/ IODS #4724/CLIA # [id number] Cholesterol in LDL mass conc N/A Critically low 0.0-100.0 [facility] Comment on above: Performed By: #### 8 00, 1005, 4500, 4520, 47856, 24804, 96615, 59580 ####[facility] Unless Otherwise [id number] [address]Vexhp: [phone]/ ARIK #4724/CLIA # [id number] Cholesterol in VLDL mass conc 115.4 mg/dL Normal [facility] and [facility] Comment on above: Performed By: #### 8 00, 1005, 4500, 4520, 57501, 81339, 91971, 19138 ####Endocrine and [facility], Inc[facility] Unless Otherwise [id number] [address]Ijzex: [phone]/ FKPC #4724/CLIA # [id number] Cholesterol mass conc 184.0 mg/dL Normal 0.0-199.0 En [facility] Comment on above: Performed By: #### 8 00, 1005, 4500, 4520, 38440, 74856, 96416, 72739 ####[facility] and [facility], Inc[facility] Unless Otherwise [id number] [address]Ztlkl: [phone]/ BHJX #4724/CLIA # [id number] Cholesterol.total/Chol esterol in HDL mass ratio 4.3 {ratio} Normal [facility] Comment on above: Performed By: #### 8 00, 1005, 4500, 4520, 84051, 55447, 97342, 28765 ####Endocrine and [facility], Inc[facility] Unless Otherwise [id number] [address]Khxed: [phone]/ DUAM #4724/CLIA # [id number] Triglyceride mass conc 577.0 mg/dL High 0.0-150.0 [facility] Diabetes [facility] Comment on above: Performed By: #### 8 00, 1005, 4500, 4520, 23361, 32213, 37935, 82510 ####Endocrine and [facility], Inc[facility] Unless Otherwise [id number] [address]Qrntt: [phone]/ JRIC #4724/CLIA # [id number] NEW MICROALBUMINon 9 Creatinine mass conc (U) 189.9 mg/dL Normal [facility] Comment on above: Performed By: #### 8 00, 1005, 4500, 4520, 65188, 73021, 08613, 69697 ####[facility] Unless Otherwise [id number] [address]Igiej: [phone]/ UYQD #4724/CLIA # [id number] Microalbumin 27.3 mg/L Normal 0.0-30.0 [facility] Comment on above: Performed By: #### 8 00, 1005, 4500, 4520, 66466, 31867, 58365, 69157 ####[facility] Unless Otherwise [id number] [address]Zehqr: [phone]/ JYAW #4724/CLIA # [id number] Urine A/C Ratio 14.4 mg/g Normal 0.0-30.0 [facility] Comment on above: Performed By: #### 8 00, 1005, 4500, 4520, 74748, 27293, 94889, 75573 ####[facility] Unless Otherwise Ubdji[address] [address]Vmjuq: [phone]/ ZGRX #4724/CLIA # [id number] TSHon 08-28-2018 Thyrotropin Qn 0.80 uIU/ml Normal 0.47-4.68 [facility] Comment on above: Performed By: #### 8 00, 1005, 4500, 4520, 47169, 93581, 08042, 88565 ####[facility] Unless Otherwise [id number] [address]Yilfo: [phone]/ WLQS #4724/KARL # [id number] Vital Signs Date Time Vital Sign Value Performing Clinician Chilango lim 08-01-2023 16:52-0500 Body height 173.99 cm Doormen. 08-01-2023 16:52-0500 Body mass index (BMI) [Ratio] 28.97 kg/m2 Doormen. 08-01-2023 16:52-0500 Body surface area Derived from formula 2.06 m2 Doormen. 08-01-2023 16:52-0500 Body weight 87.69 kg Doormen. 08-01-2023 16:52-0500 Diastolic blood pressure 64 mm[Hg] Doormen. 08-01-2023 16:52-0500 Heart rate 76 /min Doormen. 08-01-2023 16:52-0500 Systolic blood pressure 118 mm[Hg] Doormen. 10-14-2022 09:53-0500 Diastolic blood pressure 79 mm[Hg] Gianna Eddy DO Work Phone: [employer] 10-14-2022 09:53-0500 Systolic blood pressure 115 mm[Hg] Gianna Eddy DO Work Phone: [employer] 10-14-2022 09:52-0500 Heart rate 77 /min Gianna Eddy DO Work Phone: [employer] 10-14-2022 09:52-0500 Respiratory rate 18 /min Gianna Eddy DO Work Phone: [employer] 10-14-2022 09:52-0500 SaO2% (BldA) [Mass fraction] 98 % Gianna Eddy DO Work Phone: [employer] 10-14-2022 06:28-0500 Body height 175.3 cm Gianna Eddy DO Work Phone: [employer] 10-14-2022 06:28-0500 Body mass index (BMI) [Ratio] 25.84 kg/m2 Gianna Eddy DO Work Phone: [employer] 10-14-2022 06:28-0500 Body temperature 98.1 [degF] Gianna Eddy DO Work Phone: [facility] [employer] 10-14-2022 06:28-0500 Body weight 79.38 kg Gianna Eddy DO Work Phone: [employer] 10-11-2022 19:40-0500 Diastolic blood pressure 90 mm[Hg] Crys Urrutia MD Work Phone: [employer] 10-11-2022 19:40-0500 Heart rate 89 /min Crys Urrutia MD Work Phone: [employer] 10-11-2022 19:40-0500 Respiratory rate 16 /min Crys Urrutia MD Work Phone: [employer] 10-11-2022 19:40-0500 SaO2% (BldA) [Mass fraction] 96 % Crys Urrutia MD Work Phone: [employer] 10-11-2022 19:40-0500 Systolic blood pressure 116 mm[Hg] Crys Urrutia MD Work Phone: [employer] 10-11-2022 16:11-0500 Body temperature 97.5 [degF] Crys Urrutia MD Work Phone: [employer] 08-17-2022 07:31-0500 Body mass index (BMI) [Ratio] 25.84 kg/m2 Yue Pulido MD Work Phone: [facility] 08-17-2022 07:31-0500 Body weight 79.38 kg Yue Pulido MD Work Phone: [facility] [employer] 08-17-2022 06:19-0500 Body temperature 101.3 [degF] Yue Pulido MD Work Phone: [facility] 08-17-2022 06:19-0500 Diastolic blood pressure 77 mm[Hg] Yue Pulido MD Work Phone: [facility] [employer] 08-17-2022 06:19-0500 Heart rate 84 /min Yue Pulido MD Work Phone: [facility] [employer] 08-17-2022 06:19-0500 Respiratory rate 16 /min Yue Pulido MD Work Phone: [facility] [employer] 08-17-2022 06:19-0500 SaO2% (BldA) [Mass fraction] 95 % Yue Pulido MD Work Phone: [facility] [employer] 08-17-2022 06:19-0500 Systolic blood pressure 124 mm[Hg] Yue Pulido MD Work Phone: [facility] 09-08-2020 13:15-0500 BMI (Body Mass Index) 22.89 kg/m2 [facility] 09-08-2020 13:15-0500 Body Temperature 97.81 [degF] [facility], [place] 09-08-2020 13:15-0500 Body weight 70.31 kg [facility] , [place] 09-08-2020 13:15-0500 BP Diastolic 85 mm[Hg] [facility] , [place] 09-08-2020 13:15-0500 BP Systolic 124 mm[Hg] [facility] , [place] 09-08-2020 13:15-0500 Height 175.3 cm [facility] [place] , [place] 09-08-2020 13:15-0500 Pulse (Heart Rate) 70 /min Crys Urrutia [facility], [place] 09-08-2020 13:15-0500 Pulse Oximetry 99 % Crys Urrutia [facility] , [place] 09-08-2020 13:15-0500 Respiratory Rate 16 /min Crys Urrutia [facility], [place] 01-23-2020 02:46-0400 BP Diastolic 65 mm[Hg] [facility] , [place] 01-23-2020 02:46-0400 BP Systolic 121 mm[Hg] [facility] , [place] 01-23-2020 02:46-0400 Pulse (Heart Rate) 85 /min [facility], [place] 01-23-2020 02:46-0400 Respiratory Rate 16 /min [facility], [place] 01-23-2020 01:49-0400 Body Temperature 96.8 [degF] [facility], [place] 01-23-2020 01:49-0400 Pulse Oximetry 95 % [facility] , [place] 10-11-2019 08:21-0500 Body Temperature 98.2 [degF] [facility] [place] 10-11-2019 08:21-0500 BP Diastolic 65 mm[Hg] [facility] [place] 10-11-2019 08:21-0500 BP Systolic 105 mm[Hg] [facility] [place] 10-11-2019 08:21-0500 Pulse (Heart Rate) 74 /min Shravan [facility], [place] 10-11-2019 08:21-0500 Pulse Oximetry 97 % [facility] [place] 10-11-2019 08:21-0500 Respiratory Rate 18 /min Shravan [facility], [place] 10-11-2019 03:15-0500 BMI (Body Mass Index) 22.54 kg/m2 [facility] [place] 10-11-2019 03:15-0500 Body weight 69.22 kg Shravan Mcfaddenpatrick [facility], [place] 10-10-2019 07:30-0500 Height 175.3 cm [facility] [place] 10-09-2019 17:17-0500 Respiratory rate NOT REPORTED Shravan Mcfaddenpatrick [facility], [place] 08-20-2019 10:20-0500 Diastolic blood pressure 61 mm[Hg] Hank Peoples MD Work Phone: [employer] Work Phone: 08-20-2019 10:20-0500 Heart rate 102 /min Hank Peoples MD Work Phone: [employer] Work Phone: 08-20-2019 10:20-0500 Respiratory rate 18 /min Hank Peoples MD Work Phone: [employer] Work Phone: 08-20-2019 10:20-0500 SaO2% (BldA) [Mass fraction] 98 % Hank Peoples MD Work Phone: [employer] Work Phone: 08-20-2019 10:20-0500 Systolic blood pressure 97 mm[Hg] Hank Peoples MD Work Phone: [employer] Work Phone: 08-20-2019 07:34-0500 Body mass index (BMI) [Ratio] 22.15 kg/m2 Hank Peoples MD Work Phone: [employer] [employer] Work Phone: 08-20-2019 07:34-0500 Body weight 68.04 kg Hank Peoples MD Work Phone: [employer] Work Phone: 08-20-2019 07:30-0500 Body temperature 98.1 [degF] aHnk Peoples MD Work Phone: [facility] Work Phone: Encounters Encounter Date Encounter Type Care Provider Facility Start: 01-10-2024 End: 01-11-2024 ambulatory JUSTIN HERNANDEZ Not Available Start: 11-14-2023 End: 11-14-2023 ambulatory BEE BAILEY Not Available Start: 09-10-2023 End: 09-11-2023 Emergency department patient visit ADEN Arley [facility] Start: 08-26-2023 End: 08-26-2023 ambulatory BEE BAILEY Not Available Start: 08-01-2023 Split Srvc Jada Zamarripa rne Other [facility] Start: 10-14-2022 End: 10-14-2022 Emergency department patient visit [facility] Start: 10-14-2022 End: 10-14-2022 Emergency department patient visit Gianna Eddy DO Work Phone: [facility] ED Comment on above: Pain of upper abdome n (Primary Dx) Start: 10-11-2022 End: 10-11-2022 Emergency department patient visit [facility] Start: 10-11-2022 End: 10-11-2022 Emergency department patient visit Crys Urrutia MD Work Phone: [facility] ED Comment on above: Abdominal pain, unsp ecified abdominal location (Primary Dx); Constipation, unspecified constipation type Start: 08-17-2022 End: 08-17-2022 Emergency department patient visit [facility] Start: 08-17-2022 End: 08-17-2022 Emergency department patient visit Yue Pulido MD Work Phone: [facility] ED Comment on above: Influenza A (Primary Dx) Start: 09-08-2020 End: 09-08-2020 Emergency department patient visit [facility] ED Comment on above: Acute pharyngitis, u nspecified etiology (Primary Dx) Start: 01-23-2020 End: 01-23-2020 Emergency department patient visit Cl Moon Work Phone: [facility] ED Comment on above: Acute nonintractable headache, unspecified headache type (Primary Dx) Start: 10-09-2019 End: 10-11-2019 Evaluation and management of inpatient Shravan Reese [facility] Comment on above: Hyperglycemia (Prima ry Dx); Acidosis; Type 1 diabetes mellitus with ketoacidosis without coma (HCC) Start: 08-20-2019 End: 08-20-2019 Emergency department patient visit Hank Peoples MD Work Phone: [facility] ED Comment on above: Hyperglycemia (Prima ry Dx); Periumbilical abdominal pain Procedures Date Procedure Procedure Detail Performing Clinician Start: 08-01-2023 Nerve conduction eduardo dies 5-6 studies Jada Miranda Start: 10-14-2022 Comprehensive metabo lic panel Gianna Laura Eddy DO Work Phone: Start: 10-14-2022 Urnls dip stick/tabl et reagent auto microscopy Gianna Laura Eddy DO Work Phone: Start: 10-11-2022 Ct abdomen & pelvis w/contrast material Siddharth Ritchie May PA-C Work Phone: Start: 10-11-2022 GLUCOSE, WHOLE BLOOD Shade Urrutia MD Work Phone: Start: 10-11-2022 End: 10-11-2022 Basic metabolic panel calcium total Siddharth A May PA-C Work Phone: Start: 10-11-2022 Hepatic function panel Siddharth Ritchie May PA-C Work Phone: Start: 10-11-2022 GLUCOSE, WHOLE BLOOD Shade Urrutia MD Work Phone: Start: 08-17-2022 COVID-19, RAPID Yue Pulido MD Work Phone: Start: 08-17-2022 [employer] influenza Magdalena Pulido MD Work Phone: Start: 09-08-2020 [employer] streptococ cus group a Kosta Trotter Work Phone: Start: 10-11-2019 GLUCOSE, WHOLE BLOOD Angelina Pires Work Phone: Start: 10-11-2019 GLUCOSE, WHOLE BLOOD Angelina Piers Work Phone: Start: 10-11-2019 Assay of magnesium Chri stopher D [employer] Work Phone: Start: 10-11-2019 Assay of phosphorus inorganic Christopher D Sears Work Phone: Start: 10-11-2019 Basic metabolic pane l calcium total Christopher D Sears Work Phone: Start: 10-11-2019 Blood count complete auto&auto difrntl wbc Radha A Maira Work Phone: Start: 10-10-2019 GLUCOSE, WHOLE BLOOD Angelina Pires Work Phone: Start: 10-10-2019 GLUCOSE, WHOLE BLOOD Angelina Pires Work Phone: Start: 10-10-2019 Assay of magnesium Destiney darwin A [email or web address] Work Phone: Start: 10-10-2019 Assay of phosphorus inorganic Radha A Maira Work Phone: Start: 10-10-2019 Basic metabolic pane l calcium total Radha A Maira Work Phone: Start: 10-10-2019 GLUCOSE, WHOLE BLOOD Angelina Pires Work Phone: Start: 10-10-2019 GLUCOSE, WHOLE BLOOD Angelina Pires Work Phone: Start: 10-10-2019 GLUCOSE, WHOLE BLOOD Angelina Pires Work Phone: Start: 10-10-2019 GLUCOSE, WHOLE BLOOD Angelina Pires Work Phone: Start: 10-10-2019 Assay of magnesium Destiney darwin A [email or web address] Work Phone: Start: 10-10-2019 Assay of phosphorus inorganic Radha A Paris Work Phone: Start: 10-10-2019 Basic metabolic pane l calcium total Radha Rao Work Phone: Start: 10-10-2019 Blood count complete auto&auto difrntl wbc Radha Rao Work Phone: Start: 10-10-2019 End: 10-10-2019 GLUCOSE, WHOLE BLOOD Silverio Pires Work Phone: Start: 10-10-2019 GLUCOSE, WHOLE BLOOD Angelina Pires Work Phone: Start: 10-10-2019 Assay of magnesium Destiney Ritchie [email or web address] Work Phone: Start: 10-10-2019 Assay of phosphorus inorganic Radha Ritchie [email or web address] Work Phone: Start: 10-10-2019 Basic metabolic pane l calcium total Radha Rao Work Phone: Start: 10-10-2019 End: 10-10-2019 GLUCOSE, WHOLE BLOOD Silverio Pires Work Phone: Start: 10-09-2019 GLUCOSE, WHOLE BLOOD Angelina Pires Work Phone: Start: 10-09-2019 GLUCOSE, WHOLE BLOOD Angelina Pires Work Phone: Start: 10-09-2019 GLUCOSE, WHOLE BLOOD Angelina Pires Work Phone: Start: 10-09-2019 GLUCOSE, WHOLE BLOOD Angelina Pires Work Phone: Start: 10-09-2019 Ecg routine ecg w/le ast 12 lds i&r only Silverio Pires Work Phone: Start: 10-09-2019 EKG REPORT Hpf Scanni ng Start: 10-09-2019 Radiologic exam ches t single view Silverio Pires Work Phone: Start: 10-09-2019 GLUCOSE, WHOLE BLOOD Angelina Pires Work Phone: Start: 10-09-2019 Gluc bld gluc mntr d ev cleared fda spec home use Shravan Reese Start: 10-09-2019 GLUCOSE, WHOLE BLOOD Mi jasson Dow Reese Start: 10-09-2019 Urnls dip stick/tabl et reagent auto microscopy Shravan Dow Mary Ann Start: 10-09-2019 Basic metabolic pane l calcium total Shravan Dow Mary Ann Start: 10-09-2019 Blood count complete auto&auto difrntl wbc Shravan Dow Mary Ann Start: 10-09-2019 BLOOD GAS, ARTERIAL Chao hanieves Dow Reese Start: 10-09-2019 Ketone bodies serum quantitative Shravan Dow Mary Ann Start: 10-09-2019 Gluc bld gluc mntr d ev cleared fda spec home use Shravan Dow Mary Ann Start: 10-09-2019 GLUCOSE, WHOLE BLOOD Mi jasson Dow Mary Ann Start: 08-20-2019 Gluc bld gluc mntr d ev cleared fda spec home use Hank Peoples MD Work Phone: Start: 08-20-2019 GLUCOSE, WHOLE BLOOD Ty dionne Peoples MD Work Phone: Start: 08-20-2019 Ct abdomen & pelvis w/contrast material Hank Peoples MD Work Phone: Start: 08-20-2019 Ecg routine ecg w/le ast 12 lds w/i&r Hank Peoples MD Work Phone: Start: 08-20-2019 EKG REPORT Hpf Scanni ng Start: 08-20-2019 GLUCOSE, WHOLE BLOOD Ty dionne Peoples MD Work Phone: Start: 08-20-2019 Blood gases any combination ph pco2 po2 co2 hco3 Hank Peoples MD Work Phone: Start: 08-20-2019 End: 08-20-2019 Assay of lipase Hank Peoples MD Work Phone: Plan of Treatment Date Care Activity Detail Author Start: 2049 Shingles Vaccine (1 of 2) Shingles V accine (1 of 2) [facility] [place] Start: 10-14-2023 GFR test (Diabetes, CKD 3-4, OR last GFR 15-59) GFR test (Diabetes, CKD 3-4, OR last GFR 15-59) [employer] [employer] [facility] Start: 10-11-2023 GFR test (Diabetes, CKD 3-4, OR last GFR 15-59) GFR test (Diabetes, CKD 3-4, OR last GFR 15-59) [facility] [employer] Start: 07-29-2022 Urine screening for protein Diabetic Alb to Cr ratio (uACR) test [facility] Start: 07-10-2022 Hemoglobin A1c measurement A1C test (Diabetic or Prediabetic) [facility] [employer] Start: 04-20-2022 DTaP/Tdap/Td vaccine (7 - Td or Tdap) DTaP/Tdap/Td vaccine (7 - Td or Tdap) [facility] [employer] Start: 04-20-2022 DTaP/Tdap/Td vaccine (7 - Td) DTaP/Tdap/Td vaccine (7 - Td) [place] Start: 03-22-2022 Influenza vaccination Flu vaccine (# 1) [facility] Start: 08-26-2021 COVID-19 Vaccine (2 - Moderna series) COVID-19 Vaccine (2 - Moderna series) [facility] Start: 10-11-2020 GFR test (Diabetes, CKD 3-4, OR last GFR 15-59) GFR test (Diabetes, CKD 3-4, OR last GFR 15-59) [facility] Start: 04-22-2020 Influenza vaccination [place], [place] Start: 04-22-2019 Influenza vaccination Flu vaccine (# 1) [facility] [employer] Phone: Start: 2018 Hepatitis B vaccine (1 of 3 - Risk 3-dose series) Hepatitis B vaccine (1 of 3 - Risk 3-dose series) [facility] [employer] Phone: Start: 2017 Diabetic microalbumi bita test Diabetic microalbuminuria test [facility] [employer] Phone: Start: 2017 Diabetic retinal exam Diabetic retin al exam [facility] Start: 2017 Glaucoma screening Diabetic retinal exam [facility] [employer] Start: 2017 Hepatitis C screening Hepatitis C sc reen [facility] Start: 2014 HIV screen HIV screen [facility] Work Phone: Start: 2014 HIV screening HIV screen [facility] [email or web address] Start: 2011 Depression Screen Depression Screen [facility] [employer] Start: 2010 DTaP/Tdap/Td vaccine (1 - Tdap) DTaP/Tdap/Td vaccine (1 - Tdap) [employer] Phone: Start: 2010 HPV vaccine (1 - Mal e 2-dose series) HPV vaccine (1 - Male 2-dose series) [employer] Phone: Start: 2009 [object Object] [facility] Start: 2009 A1C test (Diabetic o r Prediabetic) A1C test (Diabetic or Prediabetic) [employer] Phone: Start: 2009 Diabetic foot examination Diabetic f oot exam [facility] [employer] Start: 2009 Diabetic retinal exam Diabetic retin al exam [facility]: Start: 2009 HbA1c (Bld) [Mass fraction] A1C test (Diabetic or Prediabetic) [facility] [email or web address] Start: 2009 Lipid panel [facility] [email or web address] Start: 2009 Lipid screen [facility]id screen [facility] Work Phone: Start: 2005 Pneumococcal 0-64 ye ars Vaccine (1 - PCV) Pneumococcal 0-64 years Vaccine (1 - PCV) [facility] [employer] Start: 2005 Pneumococcal 0-64 ye ars Vaccine (1 of 1 - PPSV23) Pneumococcal 0-64 years Vaccine (1 of 1 - PPSV23) [employer] Phone: Start: 2000 Varicella Vaccine (1 of 2 - 2-dose childhood series) Varicella Vaccine (1 of 2 - 2-dose childhood series) [employer] Phone: Start: 1999 Hepatitis C screening [facility] End: 11-03-2019 Basic metabolic 2000 panel Basic Metabolic Panel Lab Routine Daily for 24 Occurrences starting 10/11/2019 until 11/03/2019, 1 completed [facility] Comment on above: Daily for 24 Occurre nces starting 10/11/2019 until 11/03/2019, 1 completed Initiate Oxygen Ther apy Protocol Initiate Oxygen Therapy Protocol Respiratory Care Routine Daily until discontinued starting 10/09/2019 [facility] Comment on above: Daily until disconti nued starting 10/09/2019 End: 11-03-2019 Magnesium [Mass/Vol] Magnesium Lab Add-On Daily for 24 Occurrences starting 10/11/2019 until 11/03/2019, 1 completed [facility] Comment on above: Daily for 24 Occurre nces starting 10/11/2019 until 11/03/2019, 1 completed End: 11-03-2019 Phosphate [Mass/Vol] Phosphorus Lab Routine Daily for 24 Occurrences starting 10/11/2019 until 11/03/2019, 1 completed [facility] Comment on above: Daily for 24 Occurre nces starting 10/11/2019 until 11/03/2019, 1 completed POCT glucose [facility] Comment on above: 4X Daily (AC & HS) u ntil discontinued starting 10/10/2019 As Needed until disc ontinued starting 10/10/2019 End: 10-09-2019 Pulse Oximetry Spot Check Pulse Oximetry Spot Check Respiratory Care Routine One Time for 1 Occurrences starting 10/09/2019 until 10/09/2019 [facility] Comment on above: One Time for 1 Occur rences starting 10/09/2019 until 10/09/2019 End: 08-20-2019 Urinalysis Reflex to Culture Urinalysis Reflex to Culture Lab STAT One Time for 1 Occurrences starting 08/20/2019 until 08/20/2019 [facility] [email or web address] Work Phone: Comment on above: One Time for 1 Occur rences starting 08/20/2019 until 08/20/2019 Payers Date Payer Category Payer Worker's Compensation [id number] Unknown [id number] 2014 Unknown BCBS BCBS OUT OF STATE xxxxxxxxxxxxxx 2014-Present [address] [place] [address] xxxxxxxxxxxxxx [id number] 1999 Unknown [id number] 1999 Unknown [id number] 1999 Unknown [id number] 1999 Unknown [id number] 1999 Unknown [id number] 1999 Unknown [id number] [id number] 1999 Unknown [id number] 1999 Unknown [id number] Social History Date Type Detail Facility Start: 10-09-2019 End: 10-14-2022 Tobacco smoking status [facility]oker [facility] [email or web address] Start: 10-09-2019 End: 08-17-2022 Alcohol intake Current non-drinker of alcohol (finding) [employer] Phone: Start: 1999 Sex Assigned At Not on file [employer] Phone: Exposure to SARS-CoV-2 (event) Unable to assess [employer] Start: 09-08-2020 End: 10-14-2022 Tobacco use and exposure Never used [employer] [facility] [employer] Start: 08-07-2022 End: 10-14-2022 Exposure to SARS-CoV-2 (event) Not sure [employer] Phone: Start: 10-14-2022 Alcohol intake Current drinke r of alcohol (finding) [employer] Phone: Start: 10-14-2022 Alcohol Comment occasional per patie nt [employer] Phone: Start: Nonsmoker [employer] Start: Alcohol [employer] Medical Equipment Procedure Code Equipment Code Equipment Origin al Text Equipment Identifier Dates Test 4 times a d ay & as needed for symptoms of irregular blood glucose. [id number] Start: 08-09-2018 1 each by Does n ot apply route daily [id number] Start: 08-09-2018 1 each by Does n ot apply route 4 times daily (after meals and at bedtime) [id number] Start: 08-09-2018 Hospital Discharge instructions 10-14-2022 Discharge InstructionsAttachments Note Date & Type Note Facility 10-14-2022 Hospital Discharg e instructions Yue Pulido MD - 10/14/2022 10:02 AM EST Continue current medications as prescribed. Bentyl as needed and directed for abdominal cramping. Follow-up with your primary care provider in 3 to 5 days if symptoms not resolved. You must seek medical attention immediately develop any worsening symptoms or any other acute concerns. 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 If your pharmacy does not carry this medication, please advise them to call us so we can switch to another option. Continue current medications as prescribed. Tylenol as needed for fevers or pain. Take Zofran if needed for nausea or vomiting. Follow-up with primary care provider if symptoms have not resolved in 2-3 days. Seek medical attention immediately for any acute concerns The following attachments cannot be sent through Care Everywhere.Influenza (Israeli)documented in this encounter [employer] Phone: Clinical Note 08-06-2021 Note Date & Type Note Facility 08-06-2021 Note Patient Education Ma terials Name: Cash Ivory Current Date: 08/06/2021 09:19:57 [place] : 2000 The following sheet(s) are the Patient Education Leaflets for Cash Ivory Ambulatory Viral Upper Respiratory Illness (Adult) You have a viral upper respiratory illness (URI), which is another term for the common cold. This illness is contagious during the first few days. It is spread through the air by coughing and sneezing. It may also be spread by direct contact (touching the sick person and then touching your own eyes, nose, or mouth). Frequent handwashing will decrease risk of spread. Most viral illnesses go away within 7 to 10 days with rest and simple home remedies. Sometimes the illness may last for several weeks. Antibiotics will not kill a virus, and they are generally not prescribed for this condition. Home care ? If symptoms are severe, rest at home for the first 2 to 3 days. When you resume activity, don't let yourself get too tired. ? Don't smoke. If you need help stopping, talk with your healthcare provider. ? Avoid being exposed to cigarette smoke (yours or others?). ? You may use acetaminophen or ibuprofen to control pain and fever, unless another medicine was prescribed. If you have chronic liver or kidney disease, have ever had a stomach ulcer or gastrointestinal bleeding, or are taking blood-thinning medicines, talk with your healthcare provider before using these medicines. Aspirin should never be given to anyone under 18 years of age who is ill with a viral infection or fever. It may cause severe liver or brain damage. ? Your appetite may be poor, so a light diet is fine. Stay well hydrated by drinking 6 to 8 glasses of fluids per day (water, soft drinks, juices, tea, or soup). Extra fluids will help loosen secretions in the nose and lungs. ? Zizy-srv-hlcpisb cold medicines will not shorten the length of time you?re sick, but they may be helpful for the following symptoms: cough, sore throat, and nasal and sinus congestion. If you take prescription medicines, ask your healthcare provider or pharmacist which rxxu-dfj-sfuchpd medicines are safe to use. (Note: Don't use decongestants if you have high blood pressure.) Follow-up care Follow up with your healthcare provider, or as advised. When to seek medical advice Call your healthcare provider right away if any of these occur: ? Cough with lots of colored sputum (mucus) ? Severe headache; face, neck, or ear pain ? Difficulty swallowing due to throat pain ? Fever of 100.4?F (38?C) or higher, or as directed by your healthcare provider Call 911 Call 911 if any of these occur: ? Chest pain, shortness of breath, wheezing, or difficulty breathing ? Coughing up blood ? Very severe pain with swallowing, especially if it goes along with a muffled voice ? [id number] [employer]. [address] [place] [address], [place] [address]. All rights reserved. This information is not intended as a substitute for professional medical care. Always follow your healthcare professional's instructions. Viral URI Rapid Covid swab in office today resulted negative. Symptomatic treatment at home. Increase fluid intake and rest. May take Tylenol (650 mg every 6 hours) and ibuprofen (up to 800 mg every 8 hrs) as directed on packaging. Use a cool mist humidifier, Vicks Vapor rub, and elevating head of bed for sleep. Delsym (dextromethorphan) every 12 hours as needed for dry cough. Mucinex (Guifenisen) for congestion. Donley Pep nasal spray (or generic saline spray) for nasal congestion. Follow up with primary care physician in the next 5-7 days or sooner if needed. Go to emergency department for new or worsening of symptoms. Review attached education for viral illness. [facility] Evaluation note Note Date & Type Note Facility Evaluation note Diagnosis Hyperglycemia- Primary Other abnormal glucose Periumbilical abdominal pain Abdominal pain, periumbilic documented in this encounter [employer] Phone: Evaluation note Note Date & Type Note Facility Evaluation note Diagnosis Influenza A- Primary Influenza with other respiratory manifestations documented in this encounter [employer] Phone: Evaluation note Note Date & Type Note Facility Evaluation note Diagnosis Abdominal pain, unspecified abdominal location- Primary Constipation, unspecified constipation type documented in this encounter [employer] Phone: Evaluation note Note Date & Type Note Facility Evaluation note Diagnosis Pain of upper abdomen- Primary Abdominal pain, other specified site documented in this encounter [employer] Phone: Summary Purpose Family History No Family History Records FoundNo Family History Records FoundNo Family History Records FoundNo Family History Records FoundNo Family History Records FoundNo Family History Records Found Advance Directives No Advanced Directives Records FoundDocuments on File Type Date Recorded 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 Advance Directives and Living Will Power of Merchandising Intern Latest Code Status on File Code Status Date Activated Date Inactivated Comments Full Code 10/09/2019 7:02 PM Full Code 08/08/2018 9:44 AM 08/09/2018 4:13 PM Latest Code Status on File Code Status Date Activated Date Inactivated Comments Full Code 10/09/2019 7:02 PM 10/11/2019 1:55 PM Documents on File Type Date Recorded 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 * Active Hospital Problems Diagnosis Date Noted Acidosis [E87.2] 10/09/2019 Hyperglycemia [R73.9] 10/09/2019 DKA, type 1, not at goal (HCC) [E10.10] 10/09/2019 Type 1 diabetes mellitus with ketoacidosis without coma (HCC) [E10.10] 08/08/2018 Discharge Medications: Cash Ivory Home Medication Instructions CRISTINO:[id number] Printed on:10/11/19 1100 Medication Information blood glucose monitor strips Test 4 times a day & as needed for symptoms of irregular blood glucose. insulin glargine (TOUJEO MAX SOLOSTAR) 300 UNIT/ML injection pen Inject 50 Units into the skin nightly insulin glulisine (APIDRA) 100 UNIT/ML injection Inject 10 Units into the skin 3 times daily (with meals) Insulin Pen Needle (PEN NEEDLES 5/16 ) 30G X 8 MM MISC 1 each by Does not apply route daily Lancets MISC 1 each by Does not apply route 4 times daily (after meals and at bedtime) Consultants: none Hospital Course: Cash Ivory is a 19 y.o. male admitted with DKA because he ran out of insulin. Exam: regular. Clear. No edema Condition: fair Disposition: Home Patient will be followed by Crys Urrutia MD in 1-2 weeks Signed: Sivlerio Pires 10/11/2019, 11:08 AM documented in this encounter History of Present Illness * Ivon Machado RN - 10/10/2019 8:13 PM EST FSBS 196 * Ivon Machado RN - 10/10/2019 6:58 PM EST Initial assessment done at this time. Pt is A&O x4. Lung sounds clear throughout, bowel sounds active in all quadrants, and heart sounds regular. Pt has multiple candy bars on bedside table. Pre Wave Assembler educated on importance of not eating. Pt states that he understands. Pt voided 400 mL of clear, yellow urine. Denies pain at this time. Resting comfortably in bed with call light and belongings within reach. Will continue to monitor. * Padmini Leija RN - 10/10/2019 4:45 PM EST Patients FSBS obtained at this time and covered with insulin according to sliding scale. Pt denies any further needs at present time. * Padmini Leija RN - 10/10/2019 1:45 PM EST Patient transferred to [facility] room 330 at this time.. Report received at bedside. Pt placed on telemetry at this time. Pt deneis any further needs at present time. * Familia Estrada MSW, MANAGER APPLIED - 10/10/2019 10:39 AM EST Social Work intial Assessment/Discharge Plan Diagnosis: Type 1 diebetes mellitus with ketoacidosis without coma Met with: Patient PCP: Crys Urrutia MD Payment Source: BCBS from [place] through his employer. Advance Directives: None Code Status: Full Mental Status: Patient was alert and oriented Living Arrangement: Patient lives with his father Nba, in [place] Support Systems: Father, local friends and family Patient able to perform ADL's: Independant Current Services: None Current DME Equipment: None Able to get medication fill & pharmacy: Patient is able to obtain his medications locally and pay for them through his employer's insurance or private pay. Transportation provider: Patient will drive home Collaborative List of SNF/HH were provided: N/A Any concerns or Barriers to discharge: None Anticipated Needs/Discharge Plan: Patient anticipates being discharged soon and return to work thisiday. He will continue to live with his father in [place]. * Michelet Morales RD, LD - 10/10/2019 7:29 AM EST Nutrition Assessment Type and Reason for Visit: Initial, Consult, Patient Education Nutrition Recommendations: Continue to prompt for education opportunities. Nutrition Assessment: Alteration in nutrition related lab values, r/t endocrine dysfunction, AEB DKA. Resolving DKA, off insulin drip. Current glucose on rise, since cessation of insulin drip. Reports running out of insulin, and sometimes not taking insulin. Weight is 4.8# > reported usual values (ivf). States adequate knowledge of carb counting, as he has in past, but not always consistent. He again denies education needs. Malnutrition Assessment: Malnutrition Status: At risk for malnutrition Context: Acute illness or injury Findings of the 6 clinical characteristics of malnutrition (Minimum of 2 out of 6 clinical characteristics is required to make the diagnosis of moderate or severe Protein Calorie Malnutrition based on AND/ASPEN Guidelines): 1. 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 Weight Loss-No significant weight loss, 3. Fat Loss-No significant subcutaneous fat loss, 4. Muscle Loss-No significant muscle mass loss, 5. Fluid Accumulation-No significant fluid accumulation, 6. Administrative Assistant Coordinator Strength-Not measured Nutrition Risk Level: Moderate, High Nutrient Needs: Estimated Daily Total Kcal: 0267-6529(30-35) Estimated Daily Protein (g): 81-88 Estimated Daily Total Fluid (ml/day): 2400 Nutrition Diagnosis: Problem: Altered nutrition-related lab values Etiology: related to Endocrine dysfunction ? Signs and symptoms: as evidenced by Lab values(glucose) Objective Information: Nutrition-Focused Physical Findings: no malnutrition indices Wound Type: None Current Nutrition Therapies: Oral Diet Orders: Clear Liquid(advancing to carb control this AM) Oral Diet intake: Unable to assess(No PO records to review) Oral Nutrition Supplement (ONS) Orders: None Anthropometric Measures: Ht: 5' 9 (175.3 cm) Current Body Wt: 149 lb 12.8 oz (67.9 kg) Admission Body Wt: 148 lb (67.1 kg) Usual Body Wt: 150 lb (68 kg)(in July, but states 145#) % Weight Change: , 0.2% residual loss from July [place] Body Wt: 160 lb (72.6 kg), % [place] Body 94% BMI Classification: BMI 18.5 - 24.9 Normal Weight Lab Results Component Value Date NA 137 10/10/2019 K 4.1 10/10/2019 CL 101 10/10/2019 CO2 19 (L) 10/10/2019 BUN 8 10/10/2019 CREATININE 0.62 (L) 10/10/2019 GLUCOSE 230 (H) 10/10/2019 CALCIUM 8.1 (L) 10/10/2019 PROT 7.8 08/20/2019 LABALBU 4.5 08/20/2019 BILITOT 0.29 (L) 08/20/2019 ALKPHOS 105 08/20/2019 AST 15 08/20/2019 ALT 18 08/20/2019 LABGLOM >60 10/10/2019 GFRAA >60 10/10/2019 No results found for: LABA1C No results found for: EAG Recent Labs 10/10/19 0037 10/10/19 0133 10/10/19 0233 10/10/19 0338 10/10/19 0431 10/10/19 0529 10/10/19 0637 10/10/19 0738 POCGLU 91 102* 108* 160* 190* 234* 267* 288* Nutrition Interventions: Continue current diet Continued Inpatient Monitoring, Education Initiated, Coordination of Care Nutrition Evaluation: Evaluation: Goals set Goals: PO>75% consistent carb intakes. Monitoring: Meal Intake, Pertinent Labs, Weight, I&O, Patient/Family Education Contact Number: [phone] * Tequila Marmolejo RN - 10/09/2019 6:55 PM EST Admitted to 308 from ER per cart. Alert and oriented. IV bolus continues from ER. Monitors applied.Lungs clear. Heart tones strong and regular. Abdomen soft and flat. Denies pain. documented in this encounter Assessments Diagnosis Hyperglycemia- Primary Other abnormal glucose Acidosis Type 1 diabetes mellitus with ketoacidosis without coma (HCC) DKA, type 1, not at goal (HCC) Type I (juvenile type) diabetes mellitus with ketoacidosis, uncontrolled Diagnosis Acute nonintractable headache, unspecified headache type Diagnosis Acute pharyngitis, unspecified etiology- Primary Discharge Instructions * Instructions* Cl Moon MD - 01/23/2020 Please take all medications as prescribed. Please follow up with your primary care physician by calling today, or as soon as possible, for thefirst available appointment. If you do not have a primary care physician, please contact a physician or clinic listed below today to establish care. Please return to the emergency department IMMEDIATELY if you develop uncontrolled fevers, uncontrolled vomiting, change in symptoms, worsening of symptoms, or ANY other concerns. * Attachments The following attachments cannot be sent through Care Everywhere. * Headache (Israeli) documented in this encounter* Instructions* Kosta Trotter APRN - HUBERT - 09/08/2020 Return to the emergency department for worsening symptoms. Follow-up with your primary care provider. * Attachments The following attachments cannot be sent through Care Everywhere. * Sore Throat (Israeli) documented in this encounter Additional Source Comments (unrecognized sect ion and content) No Status Records FoundNo Status Records FoundNo Status Records FoundNo Status Records FoundNo Status Records FoundNo Status Records Found INFORMATION SOURCE (unrecogn ized section and content) DATE CREATED AUTHOR 08/31/2018 [facility] DATE CREATED AUTHOR AUTHOR'S ORGANIZ ATION 07/31/2021 [facility] DATE CREATED AUTHOR AUTHOR'S ORGANIZ ATION 08/07/2021 [facility] DATE CREATED AUTHOR AUTHOR'S ORGANIZ ATION 10/18/2022 [facility] DATE CREATED AUTHOR AUTHOR'S ORGANIZ ATION 09/11/2023 [facility] DATE CREATED AUTHOR AUTHOR'S ORGANIZ ATION 01/15/2024 [facility] EPIC Reason for Visit (unrecogniz ed section and content) Reason Comments Hyperglycemia pt states his sugars have been high for the past 3 days when he ran out of his nighttime insulin Status Reason Specialty Diagnoses / Procedures Referre d By Contact Referred To Contact Diagnoses DKA, type 1, not at goal (HCC) Silverio Pires MD [address] [facility], [place] [address] [facility] [email or web address] Reason Comments Numbness right sided, onset 6 /2 Headache onset 6/2 Reason Comments Pharyngitis onset of sore throat 2 days ago. 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 Reason Comments Hyperglycemia reports high blood s ugar x3 days, 600 today Reason Comments Pharyngitis Headache Reason Comments Other Sent over by fer almazan, pcp for ketones being a 5 and concerned for patient going into ketoacidosis. Pt states he has been having abd pain for past 5 days. Denies n/v/d. Last sugar was 86 at home Reason Comments Abdominal Pain lower abdominal pain and weakness worsening since his last visit. Reports he was diagnosed with constipation but is having diarrhea Ordered Prescriptions (unrec ognized section and content) Prescription Sig Dispensed Refills Start Date End Da te Baloxavir Marboxil (XOFLUZA, 80 MG DOSE,) 1 x 80 MG tablet Take 1 tablet by mouth once for 1 dose 1 tablet 0 08/17/2022 08/17/2022 ondansetron (ZOFRAN-ODT) 4 MG disintegrating tablet Take 1 tablet by mouth 3 times daily as needed for Nausea or Vomiting 20 tablet 0 08/17/2022 Prescription Sig Dispensed Refills Start Date End Da te dicyclomine (BENTYL) 10 MG capsule Take 1 capsule by mouth 4 times daily (before meals and nightly) 20 capsule 0 10/14/2022 Scheduled Active and Recently Administ ered Medications (unrecognized section and content) Medication Order 08/15/2022 08/16/2022 08/17/2022 acetaminophen (TYLENOL) tablet 1,000 mg (COMPLETED) 1,000 mg, Oral, ONCE, 1 dose, On Tue08/17/22 at 0645, Maximum dose of acetaminophen is 4000 mg from all sources in 24 hours. 0651 (Given - Provid er: Lashanda Patterson RN) ondansetron (ZOFRAN-ODT) disintegrating tablet 4 mg (COMPLETED) 4 mg, Oral, ONCE, 1 dose, On Tue08/17/22 at 0700 0741 (Given - Provid er: Lashanda Patterson, WILMER) Scheduled Medication Order 10/09/2022 10/10/2022 10/11/2022 ketorolac (TORADOL) injection 15 mg (COMPLETED) 15 mg, IntraVENous, ONCE, 1 dose, On 10/11/22 at 1645, Do not administer for more than 5 days. 1720 (Given - Provid er: Arcadio Canela RN) PRN Medication Order 10/09/2022 10/10/2022 10/11/2022 iopamidol (ISOVUE-370) 76 % injection 75 mL (COMPLETED) 75 mL, IntraVENous, IMG ONCE PRN, 1 dose, Starting on Tue10/11/22 at 1747, Until Tue10/11/22 at 1748, Other 1748 (Given - Provid er: Michell Bullard) Scheduled Medication Order 10/12/2022 10/13/2022 10/14/2022 aluminum & magnesium hydroxide-simethicone (MAALOX) 30 mL, lidocaine viscous hcl (XYLOCAINE) 5 mL (GI COCKTAIL) (COMPLETED) Oral, ONCE, On Louisa 10/14/22 at 0700, For 1 dose, Take 5 mL from lidocaine viscous 2% cup and mix with 30 mL of maalox and then administer. 0722 (Given - Provid er: Crys Tavares RN) dicyclomine (BENTYL) capsule 20 mg (COMPLETED) 20 mg, Oral, ONCE, 1 dose, On Louisa 10/14/22 at 0845 0910 (Given - Provid er: Errol Damon RN) Care Teams (unrecognized sec tion and content) [employer] Relationship Specialty Start Date End Date Crys Urrutia MD PCP - General Pediatrics 07/30/18 [employer] Relationship Specialty Start Date End Date Crys Urrutia MD PCP - General Pediatrics 07/30/18 [employer] Relationship Specialty Start Date End Date Crys Urrutia MD [phone] (work) PCP - General Pediatrics 07/30/18 FOR RECORDS PERTAINING TO PATIENTS WHO ARE OR HAVE BEEN ENROLLED IN A CHEMICAL DEPENDENCY/SUBSTANCEABUSE PROGRAM, SOME INFORMATION MAY BE OMITTED. This clinical summary was aggregated from multiple sources. Caution should be exercised in using it in the provision of clinical care. This summary normalizes information from multiple sources, and as a consequence, information in this document may materially change the coding, format and clinical context of patient data. In addition, data may be omitted in some cases. CLINICAL DECISIONS SHOULD BE BASED ON THE PRIMARY CLINICAL RECORDS. [facility]. provides no warranty or guarantee of the accuracy or completeness of information in this document.
== END 2024-03-14 20:31 | disposition home or self-care (01) ==
LOC: SLEEP 20:48
PROVIDERS: PCP Nurse Practitioner Family; Visit Provider Nurse Practitioner Family
DX: G47.33 Obstructive sleep apnea (adult) (pediatric) (principal)
CPT/HCPCS: 95811

== ENCOUNTER 2025-05-22 05:22 | Emergency (ER) | payer BC, SELFPAY ==
--- OUTSIDE RECORDS SUMMARY | 2025-02-28 15:02 | XMS_ITS ---
Author Name Auto Generated Organization [facility] Care Team Providers Care Biochemistry Teacher Name Role Phone BEE BAILEY Attending Unavailable MARIAELENA PEREYRA Attending Unavailable BEE BAILEY Attending Unavailable BEE BAILEY Attending Unavailable ROD URRUTIA Primary Care Unavailable JULIA ENRIQUEZ Attending Unavailable PROBLEMS DATE TYPE CONDITION / CODE ATTENDING STATUS AJIT RCE 12/31/2024 Unknown Other chest pain / R07.89(ICD-10) JULIA ENRIQUEZ Active [facility] l PROCEDURES No Procedure Records Found RESULTS XR CHEST (2 VW) Observed: 12/31/2024 6:11 AM Status: F Source: [facility] EXAMINATION: TWO XRAY VIEWS OF THE CHEST 12/31/2024 5:32 am COMPARISON: 10/09/2019 HISTORY: ORDERING SYSTEM PROVIDED HISTORY: Chest Pain TECHNOLOGIST PROVIDED HISTORY: Chest Pain FINDINGS: No focal consolidation, pleural effusion or pneumothorax. The cardiomediastinal silhouette is unremarkable. No overt pulmonary edema. No acute osseous abnormality. IMPRESSION: No acute cardiopulmonary process. Interpreted by: Alcira Lo MD Signed by: Alcira Lo MD 12/31/24 Final result CBC WITH DIFF Collected: 12/31/2024 5:11 AM Status: F Source: [facility] TYPE CODE TESTS RESULT OUT OF RANGE REFERENCE UNITS LAB WBC(LOINC) WBC Count 6.9 3.5-11.3 k/uL LAB RBC(LOINC) RBC Count 4.92 4.21-5.77 m/uL LAB HGB(LOINC) Hemoglobin 15.5 13.0-17.0 g/dL LAB HCT(LOINC) Hematocrit 45.0 40.7-50.3 % LAB MCV(LOINC) MCV 91.5 82.6-102.9 fL LAB MCH(LOINC) MCH 31.5 25.2-33.5 pg LAB MCHC(LOINC) MCHC 34.4 28.4-34.8 g/dL LAB RDW(LOINC) RDW 11.9 11.8-14.4 % LAB PLT(LOINC) Platelet Count 245 138-453 k/uL LAB MPVX(LOINC) MPV 10.5 8.1-13.5 fL LAB NRBCS(LOINC) NRBC Automated 0.0 0.0 per 100 WBC LAB SEG(LOINC) Neutrophil (Seg) 49 36-65 % LAB LYM(LOINC) Lymphocyte 39 24-43 % LAB MON(LOINC) Monocyte 10 3-12 % LAB EO(LOINC) Eosinophil 1 1-4 % LAB BASO(LOINC) Basophil 1 0-2 % LAB IGRAN(LOINC) Immature Granulocyte 0 0 % LAB ASEG(LOINC) Abs.Neutrophil (Seg) 3.39 1.50-8.10 k/uL LAB ALYM(LOINC) Abs. Lymph 2.69 1.10-3.70 k/uL LAB AMONO(LOINC) Abs. Monocyte 0.69 0.10-1.20 k/u L LAB AEO(LOINC) Abs. Eosinophil 0.10 0.00-0.44 k/u L LAB ABASO(LOINC) Abs. Basophil 0.04 0.00-0.20 k/u L LAB AIGRAN(LOINC) Abs.Imm.Granulo cyte <0.03 0.00-0.30 k/uL Performed By: #### CMPX, CDP , TROPI #### [facility] [address] [place], [place] [id number] Community Nutrition Educator: Cash Guerrero MD COMP METABOLIC VT/RFX MG Collected: 07/2025 5:11 AM Status: F Source: [facility] TYPE CODE TESTS RESULT OUT OF RANGE REFERENCE UNITS LAB NA(LOINC) NA (Sodium) 140 136-145 mmol/L LAB K(LOINC) K (Potassium) 4.1 3.7-5.3 mmol/L Result Comment: Specimen hem olysis has exceeded the interference as defined by Denise. Value may be falsely increased. Suggest recollection if clinically indicated. LAB CL(LOINC) Chloride 103 98-107 mmol/L LAB HCO(LOINC) CO2 26 20-31 mmol/L LAB GAP(LOINC) Anion Gap 11 9-16 mmol/L LAB GLU(LOINC) Glucose 101 High 74-99 mg/dL LAB BUN(LOINC) BUN (Urea N) 11 6-20 mg/dL LAB CRE(LOINC) Creatinine 0.9 0.70-1.20 mg/dL LAB EGFR(LOINC) eGFR >90 >60 mL/min/1. 73m2 Result Comment: These results are not intended [...] following therapy that affects renal tubular secretion. LAB BUNCRE(LOINC) BUN/CRE Ratio 12 9-20 LAB CA(LOINC) Calcium 8.9 8.6-10.4 mg/dL LAB TP(LOINC) Protein, Total 7.2 6.6-8.7 g/dL LAB ALB(LOINC) Albumin 4.3 3.5-5.2 g/dL LAB AG(LOINC) Albumin/Glob Ratio 1.5 1.0-2.5 LAB TBIL(LOINC) Bilirubin, Total 0.4 0.00-1.20 mg/dL LAB ALP(LOINC) Alkaline Phos 81 40-129 U/L LAB ALT(LOINC) ALT 34 10-50 U/L LAB AST(LOINC) AST 33 10-50 U/L Performed By: #### CMPX, CDP , TROPI #### [facility] [address] [place], [place] [id number] Community Nutrition Educator: Cash Guerrero MD TROPONIN Collected: 12/31/2024 5:11 AM Status: F Source: [facility] TYPE CODE TESTS RESULT OUT OF RANGE REFERENCE UNITS LAB HSTROP(LOINC) Troponin, High Sens 8 0-22 ng/L Result Comment: High Sensiti vity Troponin values cannot be compared with other Troponin methodologies. Performed By: #### CMPX, CDP , TROPI #### [facility] [address] [place], [place] [id number] Community Nutrition Educator: Cash Guerrero MD ALLERGIES No Allergies Records Found ENCOUNTERS ADMIT/DISCHARGE ACCOUNT NUMBER ADMITTING ENCOUNTER CLASS LOCATION SOURCE 02/28/2025/ 5 [id number] Ambulatory Building:[facility] 02/13/2025/ 5 [id number] Ambulatory Building:[facility] 12/31/2024/ 5 [id number] Emergency Building:[facility] Room: 05Bed: 05 [facility] 11/29/2024/ 5 [id number] Ambulatory Building:[facility] 07/30/2024/ 4 [id number] Ambulatory Building:[facility] S [facility] PAYERS ENCOUNTER GUARANTOR PAYER SUBSCRIBER SOURCE 02/28/2025 CASH IVORYDOB: [id number] [address] [address]Oeu: (HP) Primary Insurance:BCBSPolic y Number: [id number] tive Date:2022-08-22 CASH WOODSONB: [id number] [address] [address] [facility] EPIC 02/13/2025 CASH WOODSONB: [address] [address]Bey: (HP) Primary Insurance:BCBSPolic y Number: [id number] tive Date:2022-08-22 CASH WOODSONB: [id number] [address] [address] [facility] EPIC 12/31/2024 CASH WOODSONB: [address] [address]Tfc: (HP) Primary Insurance:[place] BCBSPolicy Number: [id number] tive Date:2024-08-22 CASH WOODSONB: [id number] [place] [address]Uml: (HP) [facility] 11/29/2024 CASH WOODSONB: [address] [address]Ujb: (HP) Primary Insurance:BCBSPolic y Number: [id number] tive Date:2022-08-22 CASH WOODSONB: [id number] [address] [place] [address] [facility] EPIC 07/30/2024 CASH WOODSONB: [address] [address]Tnd: (HP) Primary Insurance:BCBSPolic y Number: [id number] tive Date:2022-08-22 CASH WOODSONB: [id number] [address] [address] [facility] EPIC
[2025-05-22] VITALS (18 sets, daily range): BP systolic 107–114; BP diastolic 50–86; PULSE 79; TEMP 36.7; O2SAT 96–99; BMI 31.0
--- OUTSIDE RECORDS SUMMARY | 2025-05-22 05:32 | XMS_ITS | Encounter Summary ---
Author Organization [facility] Address [address] [place] [address] Care Team Providers Care Security Police Officer Name Role Phone Crys Puri MD Primary Care Provider [phone] Encounter Details Date Type Department Care Team (Late st Contact Info) Description 09/20/2024 Abstract [facility] [address] [place] [id number] Amita Collins, DO [address] [facility] [address] [place] [address] Social History Tobacco Use Types Packs/Day Years Used Date Smoking Tobacco: Never Smokeless Tobacco: Current Chew Comments:daily Alcohol Use Standard Drinks/Week Comments Yes 12 (1 standard drink = 0.6 oz pu re alcohol) caffeine: 12oz soda daily AUDIT-C Answer Date Recorded Q1: How often do you have a drink containing alc ohol? 2-4 times a month 03/15/2024 Q2: How many drinks containi ng alcohol do you have on a typical day when you are drinking? 3 or 4 03/15/2024 Q3: How often do you have si x or more drinks on one occasion? Never 03/15/2024 PHQ-2 Answer Date Recorded Patient Health Questionnaire-2 Score 0 07/30/2024 Sex and Gender Information Value Date Recorded Sex Assigned at Not on file Legal Sex Male 6:40 PM EDT Gender Identity Male 11/03/2022 6:40 PM EDT Sexual Orientation Not on file documented as of this encounter Plan of Treatment Upcoming Encounters Date Type Department Care Team (Late st Contact Info) Description 07/01/2025 3:45 PM EST Office Visit [facility] [place] [facility] [address] [place] [phone] Amita Collins DO [address] [place] [address] 02/17/2026 3:45 PM EDT Office Visit [facility] [address] [place] [address] Aiyana Winslow DPM [address] [place] [address] documented as of this encounter Visit Diagnoses Not on filedocumented in this encounter Care Teams Security Police Officer Relationship Specialty Start Date End Date Crys Puri MD [address] [address] PCP - General Family Medicine 12/31/22 documented as of this encounter
--- OUTSIDE RECORDS SUMMARY | 2025-05-22 05:32 | XMS_ITS | Encounter Summary ---
Author Organization [facility] Address [address] [facility] [place] [address] Care Team Providers Care Pals Specialist Name Role Phone Crys Puri MD Primary Care Provider [phone] Amita Collins DO Unavailable [phone] Encounter Details Date Type Department Care Team (Late st Contact Info) Description 01/12/2023 Abstract [facility] [place] [facility] [address] [place] [address] Amita Collins DO [address] [facility] [address] [place] [address] Social History Tobacco Use Types Packs/Day Years Used Date Smoking Tobacco: Never Smokeless Tobacco: Never Alcohol Use Standard Drinks/Week Comments Not Currently 0 (1 standard drink = 0.6 oz pur e alcohol) caffeine: 2-3 cups per day AUDIT-C Answer Date Recorded Q1: How often do you have a drink containing alc ohol? Never 01/10/2023 Average Number of Drinks Not on file 023 Frequency of Binge Drinking Not on file 12/21 PHQ-2 Answer Date Recorded Patient Health Questionnaire-2 Score 0 01/10/2023 Sex and Gender Information Value Date Recorded Sex Assigned at Not on file Legal Sex Male 6:40 PM EDT Gender Identity Male 11/03/2022 6:40 PM EDT Sexual Orientation Not on file documented as of this encounter Plan of Treatment Upcoming Encounters Date Type Department Care Team (Late st Contact Info) Description 07/01/2025 3:45 PM EST Office [facility] [address] [place] [phone] Amita Collins DO [address] [place] [address] 02/17/2026 3:45 PM EDT Office Visit [facility] [address] [place] [phone] Aiyana Winslow DPM [address] [place] [address] documented as of this encounter Visit Diagnoses Not on filedocumented in this encounter Care Teams Pals Specialist Relationship Specialty Start Date End Date Crys Puri MD [address] [place] [address] PCP - General Family Medicine 12/31/22 Amita Collins DO [address] [place] [address] PCP - Collin [employer] 04/15/2208/21 documented as of this encounter
--- OUTSIDE RECORDS SUMMARY | 2025-05-22 05:32 | XMS_ITS | Encounter Summary ---
Author Organization [facility] Address [address] [place] [address] Care Team Providers Care Neonatologist Name Role Phone Crys Puri MD Primary Care Provider [phone] Amita Collins DO Unavailable [phone] Encounter Details Date Type Department Care Team (Late st Contact Info) Description 02/15/2024 Abstract [facility] [address] [place] [address] Ginny Mccoy NP [address] [place] [address] Social History Tobacco Use Types Packs/Day Years Used Date Smoking Tobacco: Never Smokeless Tobacco: Current Chew Comments:daily Alcohol Use Standard Drinks/Week Comments Not Currently 12 (1 standard drink = 0.6 oz pu re alcohol) caffeine: 12oz soda daily AUDIT-C Answer Date Recorded Q1: How often do you have a drink containing alc ohol? 2-3 times a week 01/10/2024 Q2: How many drinks containi ng alcohol do you have on a typical day when you are drinking? 5 or 6 01/10/2024 Q3: How often do you have si x or more drinks on one occasion? Weekly 01/10/2024 PHQ-2 Answer Date Recorded Patient Health Questionnaire-2 [...] 07/01/2025 3:45 PM EST Office [facility] [address] [place] [address] Amita Collins DO [address] [place] [address] 02/17/2026 3:45 PM EDT Office Visit [facility] [address] [place] [phone] Aiyana Winslow DPM [address] [place] [address] documented as of this encounter Visit Diagnoses Not on filedocumented in this encounter Care Teams Neonatologist Relationship Specialty Start Date End Date Crys Puri MD [address] [place] [address] PCP - General Family Medicine 12/31/22 Amita Collins DO [address] [place] [address] PCP - [employer]lin [employer] 04/15/2208/21 documented as of this encounter
--- OUTSIDE RECORDS SUMMARY | 2025-05-22 05:32 | XMS_ITS | Encounter Summary ---
Author Organization [facility] Address [address] [place] [address] Care Team Providers Care Hydroponics Worker Name Role Phone Crys Puri MD Primary Care Provider [phone] Encounter Details Date Type Department Care Team (Late st Contact Info) Description 03/14/2025 Orders Only [facility] Family Medicine [address] [place] [phone] Crys Puri MD [address] [place] [address] Social History Tobacco Use Types Packs/Day Years Used Date Smoking Tobacco: Never Smokeless Tobacco: Current Chew Comments:daily Alcohol Use Standard Drinks/Week Comments Yes 6 (1 standard drink = 0.6 oz pur e alcohol) caffeine: 12oz soda daily AUDIT-C Answer [...] Date Recorded Patient Health Questionnaire-2 Score 0 02/28/2025 Sex and Gender Information Value Date Recorded [...] [address] [place] [phone] Amita Collins DO [address] [place] [address] 02/17/2026 3:45 PM EDT Office Visit [facility] [place] [facility] [address] [place] [address] Aiyana Winslow DPM [address] [place] [address] documented as of this encounter Procedures Procedure Name Priority Date/Time Associated Diagnosis Comments DIABETIC RETINOPATHY SCREENING - OU - BOTH EYES Routine 09/22/2024 2:16 PM EST documented in this encounter Results * Diabetic Retinopathy Screening - OU - Both Eyes (09/22/2024 2:16 PM EST) Anatomical Region Laterality Modality Head Other us Crys Puri MD OPHTH PHOTOGRAPHY Final Resul t documented in this encounter Visit Diagnoses Not on filedocumented in this encounter Care Teams Hydroponics Worker Relationship Specialty Start Date End Date Crys Puri MD [address] [place] [address] PCP - General Family Medicine 12/31/22 documented as of this encounter
--- OUTSIDE RECORDS SUMMARY | 2025-05-22 05:32 | XMS_ITS | Encounter Summary ---
Author Organization [employer] Address [id number] [address] [place] [address] Care Team Providers Care Endodontics Dentist Name Role Phone Crys Puri MD Primary Care Provider [phone] Reason for Visit * Reason Comments Med Refill Encounter Details Date Type Department Care Team (Late st Contact Info) Description 07/19/2021 Refill [facility] [address] [facility] [address] [place] [phone] Rachele Jacobson MD [address] [facility] [address] [place], [place] [id number] Social History Tobacco Use Types Packs/Day Years Used Date Smoking Tobacco: Never Smokeless Tobacco: Never Alcohol Use Standard Drinks/Week Comments No 0 (1 standard drink = 0.6 oz pur e alcohol) Childcare Answer Date Recorded Childcare Unknown 01/20/2019 Employment Answer Date Recorded Employment Unknown 01/20/2019 Purpose - Life Answer Date Recorded Purpose and direction in life Unknown Sex and Gender Information Value Date Recorded Sex Assigned at Not on file Legal Sex Male 11:58 AM EDT Gender Identity Not on file Sexual Orientation Not on file documented as of this encounter Plan of Treatment Not on file documented as of this encounter Visit Diagnoses Not on filedocumented in this encounter Care Teams Endodontics Dentist Relationship Specialty Start Date End Date Crys Puri MD [address] [place] [address] PCP - General Family Medicine 09/10/23 documented as of this encounter
--- OUTSIDE RECORDS SUMMARY | 2025-05-22 05:32 | XMS_ITS | Encounter Summary ---
Author Organization [facility] Address [address] [place] [address] Care Team Providers Care Independent Sales Representative Name Role Phone Crys Puri MD Primary Care Provider [phone] Amita Collins DO Unavailable [phone] Encounter Details Date Type Department Care Team (Late st Contact Info) Description 01/19/2024 [facility] Only [facility] [address] [place] [address] Ginny Mccoy NP [address] [place], [place] [phone] Social History Tobacco Use Types Packs/Day Years [...] [address] [place] [address] Amita Collins DO [address] [place] [address] 02/17/2026 3:45 PM EDT Office Visit [facility] [place] [facility] [address] [place] [phone] Aiyana Winslow DPM [address] [place] [address] documented as of this encounter Visit Diagnoses Not on filedocumented in this encounter Care Teams Independent Sales Representative Relationship Specialty Start Date End Date Crys Puri MD [address] [place] [address] PCP - General Family Medicine 12/31/22 Amita Collins DO [address] [place] [address] PCP - [employer] 04/15/2208/21 documented as of this encounter
--- OUTSIDE RECORDS SUMMARY | 2025-05-22 05:32 | XMS_ITS | Encounter Summary ---
Author Organization [facility] Address [address] [place] [address] Care Team Providers Care Technical Buyer Name Role Phone Crys Puri MD Primary Care Provider [phone] Amita Collins DO Unavailable [phone] Encounter Details Date Type Department Care Team (Late st Contact Info) Description 04/11/2023 Orders Only [facility] [place] [facility] [address] [place] [address] Amita Collins, [address] [facility] [address] [place] [address] Social History Tobacco Use Types Packs/Day Years [...] [address] [place] [phone] Amita Collins DO [address] [place] [address] 02/17/2026 3:45 PM EDT Office Visit [facility] [address] [place] [address] Aiyana Winslow DPM [address] [place] [address] documented as of this encounter Procedures Procedure Name Priority Date/Time Associated Diagnosis Comments DIABETIC RETINOPATHY SCREENING - OU - BOTH EYES Routine 04/09/2023 1:00 PM EDT documented in this encounter Results * Diabetic Retinopathy Screening - OU - Both Eyes (04/09/2023 1:00 PM EDT) Anatomical Region Laterality Modality Head Other Amita Collins DO OPHTH PHOTOGRAPHY Final Re sult documented in this encounter Visit Diagnoses Not on filedocumented in this encounter Care Teams Technical Buyer Relationship Specialty Start Date End Date Crys Puri MD [address] [place] [address] PCP - General Family Medicine 12/31/22 Amita Collins DO [address] [place] [address] PCP - [employer] 04/15/2208/21 documented as of this encounter
--- OUTSIDE RECORDS SUMMARY | 2025-05-22 05:32 | XMS_ITS | Clinical Summary ---
Author Organization [employer] Address [id number] [address] [place] [address] Care Team Providers Care Air Conditioning Service Technician Name Role Phone Crys Puri MD Primary Care Provider [phone] Allergies Active Allergy Reactions Criticality Noted Date Comments Penicillins Rash Low 10/14/2016 Medications insulin lispro (HumaLOG) 100 unit/mL insulin pen 1-20 units Sliding scale 1 unit per 7 grams of carbs, 1 unit per 50 above 150 of sugars 1 Box 12 10/16/2016 Active Active Problems Problem Noted Date Diagnosed Date Diabetic ketoacidosis withou t coma associated with type 1 diabetes mellitus 01/23/2018 Type 1 diabetes 10/15/2016 DKA (diabetic ketoacidoses) 10/14/2016 Overview (05/22/2021): 05/22 Regulatory Import Family History Medical History Relation Name Comments Diabetes Father Relation Name Status Comments Father Social History Tobacco Use Types Packs/Day Years Used Date Smoking Tobacco: Never Smokeless Tobacco: Never Tobacco Cessation:Counseling Given: Not Answered Alcohol Use Standard Drinks/Week Comments Yes 0 (1 standard drink = 0.6 oz pur e alcohol) occasional Childcare Answer Date Recorded Childcare Unknown 01/20/2019 Employment Answer Date Recorded Employment Unknown 01/20/2019 Purpose - Life Answer Date Recorded Purpose and direction in life Unknown Sex and Gender Information Value Date Recorded Sex Assigned at Not on file Legal Sex Male 11:58 AM EDT Gender Identity Not on file Sexual Orientation Not on file Last Filed Vital Signs Vital Sign Reading Time Taken Comments Blood Pressure 126/86 09/10/2023 8:56 AM EST Pulse 98 09/10/2023 8:56 AM EST Temperature 36.8 C (98.2 F) 09/10/2023 8:56 AM EST Respiratory Rate 16 09/10/2023 8:56 AM EST Oxygen Saturation 99% 09/10/2023 9:01 AM EST Inhaled Oxygen Concentration - - Weight 81.6 kg (180 lb) 09/10/2023 8:56 AM EST Height 175.3 cm (5' 9 ) 09/10/2023 8:56 AM EST Body Mass Index 26.58 09/10/2023 8:56 AM EST Plan of Treatment Health Maintenance Due Date Last Done Comments Diabetic Ophthalmology Exam 1999 Depression Screening 2011 Diabetic Foot Exam 2017 DTaP,Tdap and Td Vaccines (7 - Td or Tdap) 04/20/2022 04/20/2012, 06/11/2004, 04/30/2002, Additional history exists Adult BMI Screening 09/10/2024 09/10/2023 Tobacco Screening 09/10/2024 09/10/2023 Influenza Vaccine 04/22/2025 Medical Devices Not on file Insurance [employer] ANTHEM Advance Directives * Full Code (Latest Code Status on File) Date Activated Date Inactivated Comments 01/24/2018 12:46 AM 01/25/2018 2:25 PM Care Teams Air Conditioning Service Technician Relationship Specialty Start Date End Date Crys Puri MD [address] [place] [address] PCP - General Family Medicine 09/10/23
--- OUTSIDE RECORDS SUMMARY | 2025-05-22 05:32 | XMS_ITS | Encounter Summary ---
Author Organization [facility] Address [address] [place] [address] [place] [address] Care Team Providers Care Manager Of Learning Name Role Phone Crys Puri MD Primary Care Provider [phone] Amita Collins DO Unavailable [phone] Encounter Details Date Type Department Care Team (Late st Contact Info) Description 08/26/2023 Abstract [facility] [address] [place] [address] Crys Puri MD [address] [place], [place] [phone] Social History Tobacco Use Types Packs/Day Years Used Date Smoking Tobacco: Never Smokeless Tobacco: Current Chew Alcohol Use Standard Drinks/Week Comments Yes 10 (1 standard drink = 0.6 oz pu re alcohol) caffeine: 2-3 cups per day AUDIT-C [...] [address] [place] [phone] Amita Collins DO [address] [place] [address] 02/17/2026 3:45 PM EDT Office Visit [facility] [address] [place] [address] Aiyana Winslow DPM [address] [place] [address] documented as of this encounter Visit Diagnoses Not on filedocumented in this encounter Care Teams Manager Of Learning Relationship Specialty Start Date End Date Crys Puri MD [address] [place] [address] PCP - General Family Medicine 12/31/22 Amita Collnis DO [address] [place] [address] PCP - [employer] 04/15/2208/21 documented as of this encounter
--- OUTSIDE RECORDS SUMMARY | 2025-05-22 05:32 | XMS_ITS | Encounter Summary ---
Author Organization [facility] Address [address] [place] [address] Care Team Providers Care Funeral Service Manager Name Role Phone Crys Puri MD Primary Care Provider [phone] Encounter Details Date Type Department Care Team (Latest Contact Info) Description 12/12/2024 Results Follow-Up [facility] [address] [facility] [address] [place] [address] Amita Collins, DO [address] [facility] [address] [place] [address] Comprehensive metabolic panel, Lipid panel, Microalbumin / creatinine urine ratio, Additional followed-up results: 2 Social History Tobacco Use Types Packs/Day Years [...] Date Recorded Patient Health Questionnaire-2 Score 0 11/29/2024 Sex and Gender Information Value Date Recorded Sex Assigned at Not on file Legal Sex Male 6:40 PM EDT Gender Identity Male 11/03/2022 6:40 PM EDT Sexual Orientation Not on file documented as of this encounter Plan of Treatment Upcoming Encounters Date Type Department Care Team (Late st Contact Info) Description 07/01/2025 3:45 PM EST Office Visit [facility] [address] [place] [address] Amita Collins DO [address] [place] [address] 02/17/2026 3:45 PM EDT Office Visit [facility] [address] [place] [address] Aiyana Winslow DPM [address] [place] [address] documented as of this encounter Visit Diagnoses Not on filedocumented in this encounter Care Teams Funeral Service Manager Relationship Specialty Start Date End Date Crys Puri MD [address] [place] [address] PCP - General Family Medicine 12/31/22 documented as of this encounter
--- OUTSIDE RECORDS SUMMARY | 2025-05-22 05:32 | XMS_ITS | Encounter Summary ---
Author Organization [facility] Address [address] [facility] [place] [address] Care Team Providers Care Bander And Cellophaner Helper Machine Name Role Phone Crys Puri MD Primary Care Provider [phone] Amita Collins DO Unavailable [phone] Encounter Details Date Type Department Care Team (Late st Contact Info) Description 01/06/2023 Abstract [facility] [place] [facility] [address] [facility] [address] [place] [address] Amita Collins DO [address] [facility] [address] [place] [address] Social History Tobacco Use Types Packs/Day Years Used Date Smoking Tobacco: Never Tobacco Cessation:Counseling Given: Not Answered [...] [address] [place] [address] Amita Collins DO [address] [place] [address] 02/17/2026 3:45 PM EDT Office Visit [facility] [address] [place] [address] Aiyana Winslow DPM [address] [place] [address] documented as of this encounter Visit Diagnoses Not on filedocumented in this encounter Care Teams Bander And Cellophaner Helper Machine Relationship Specialty Start Date End Date Crys Puri MD [address] [place] [address] PCP - General Family Medicine 12/31/22 Amita Collins DO [address] [place] [address] PCP - [employer] 04/15/2208/21 documented as of this encounter
--- OUTSIDE RECORDS SUMMARY | 2025-05-22 05:32 | XMS_ITS | Encounter Summary ---
Author Organization [facility] Address [address] [place] [address] Care Team Providers Care Claims Collector Name Role Phone Crys Puri MD Primary Care Provider [phone] Encounter Details Date Type Department Care Team (Latest Contact Info) Description 02/20/2025 Results Follow-Up [facility] [address] [facility] [address] [place] [address] Amita Collins, DO [address] [facility] [address] [place] [address] Lipid panel, Comprehensive metabolic panel Social History Tobacco Use Types Packs/Day Years [...] [address] [place] [phone] Amita Collins DO [address] [place] [address] 02/17/2026 3:45 PM EDT Office Visit [facility] [address] [place] [address] Aiyana Winslow DPM [address] [place] [address] documented as of this encounter Visit Diagnoses Not on filedocumented in this encounter Care Teams Claims Collector Relationship Specialty Start Date End Date Crys Puri MD [address] [facility] [place] [address] PCP - General Family Medicine 12/31/22 documented as of this encounter
--- NOTE | 2025-05-22 05:46 | PC.NURSE ---
this patient drove himself to the er depart with complaint of dizziness onset 1 week ago. this patient denies any recent falls, injury or trauma to cause this dizziness
--- NOTE | 2025-05-22 05:55 | ED.GENADUL1 ---
Documented by User: Freddy Christian MD 05/22/25 19:46 HPI HPI - General Adult General Chief complaint: Dizziness Stated complaint: DIZZINESS WEAKNESS Time Seen by Provider: 05/22/25 05:54 Source: patient Mode of arrival: walk-in Limitations: no limitations History of Present Illness HPI narrative: patient presents complaining of light headiness for one week. States when he takes a deep breath he becomes light headed. It does not last long. Has fullness of his head. No ear pain. no fever. He is type I IDDM. Related Data Home Medications ?Medication ?Instructions ?Recorded ?Confirmed blood-glucose sensor (Dexcom G7 05/22/25 05/22/25 Sensor device) insulin pump cart,auto,BT,G6/7 05/22/25 05/22/25 (Omnipod 5 G6-G7 Pods (Gen 5) subcutaneous cartridge) Allergies Allergy/AdvReac Type Severity Reaction Status Date / Time Penicillins Allergy Mild rash Verified 05/22/25 05:32 Review of Systems ROS Status of ROS 10 or more systems reviewed and unremarkable except as noted in history and below PFSH PFSH Social History Little interest or pleasure in doing things: not at all Feeling down, depressed, or hopeless: not at all Exam Constitutional Vital Signs, click to edit/add: Last Vital Signs Temp 98.1 F 05/22/25 05:32 Pulse 79 05/22/25 05:32 Resp 18 05/22/25 05:32 BP 109/79 05/22/25 07:32 Pulse Ox 99 05/22/25 07:32 O2 Del Method Room Air 05/22/25 05:32 Common normals: no apparent distress, average body habitus, oriented x3, no limitations, healthy appearing, alert and well nourished [facility] Common normals: normocephalic and head/scalp atraumatic External ear: external ears normal Tympanic membrane: TMs normal bilaterally Eye Common normals: PERRL and EOMs intact bilaterally Respiratory Common normals: normal respiratory effort, no retractions, no use of accessory muscles and clear to auscultation bilaterally Cardio Common normals: regular rate, regular rhythm, S1 normal heart sound and S2 normal heart sound GI Common normals: Normal to inspection, nondistended, normoactive bowel sounds present and soft to palpation Extremity Common normals: normal to inspection and full ROM Neuro Common normals: oriented x3, CN's II-XII intact bilaterally and moves all extremities Psych Appearance: grossly normal Course Vital Signs Vital signs: Vital Signs Pulse Oximetry 98 05/22/25 05:28 Temperature 98.1 F 05/22/25 05:32 Pulse Rate 79 05/22/25 05:32 Respiratory Rate 18 05/22/25 05:32 Blood Pressure 109/79 05/22/25 07:32 Pulse Oximetry 99 05/22/25 07:32 Oxygen Delivery Method Room Air 05/22/25 05:32 Medical Decision Making MDM Narrative Medical decision making narrative: patient presents complaining of feeling light headed for the past week. by light headed he means room spinning. States it occurs when he takes a deep breath. It does not last long. came in this AM for evaluation. No fever or chills . complains of pressure sensation in his head. Labs ordered along with IV hydration and antivert Lab Data Labs: Lab Results 05/22/25 05/22/25 Range/Units 05:42 06:35 WBC 5.9 (4.0-11.0) 10^3/uL RBC 4.51 L (4.70-6.10) 10^6/uL Hgb 14.3 (14.0-18.0) g/dL Hct 41.1 L (42.0-54.0) % MCV 91.1 (80.0-94.0) fL MCH 31.7 (25.9-34.0) pg MCHC 34.8 (29.9-35.2) g/dL RDW 11.9 (11.0-15.0) % Plt Count 226 (150-450) 10^3/uL MPV 10.6 (9.5-13.5) fL Neut % (Auto) 62.0 (43.0-75.0) % Lymph % (Auto) 27.9 (20.5-60.0) % [place] % (Auto) 7.1 (1.7-12.0) % Eos % (Auto) 2.0 (0.9-7.0) % Baso % (Auto) 0.7 (0.2-2.0) % Neut # (Auto) 3.7 (1.4-6.5) 10^3/uL Lymph # (Auto) 1.7 (1.2-3.8) 10^3/uL [place] # (Auto) 0.4 (0.3-0.8) 10^3/uL Eos # (Auto) 0.1 (0.0-0.7) 10^3/uL Baso # (Auto) 0.0 (0.0-0.1) 10^3/uL Abs Immat Gran (auto) 0.02 (0.00-0.03) 10^3/uL Imm/Tot Granulo (auto) 0.3 (0.0-0.5) % Sodium 141 (136-145) mmol/L Potassium 3.9 (3.5-5.1) mmol/L Chloride 105 (98-107) mmol/L Carbon Dioxide 24.2 (21.0-32.0) mmol/L Anion Gap 15.7 BUN 18.0 (7.0-18.0) mg/dL Creatinine 0.85 (0.70-1.30) mg/dL Est GFR ( Amer) >60 (>=60 mL/min/1.73m^2) Est GFR (Non-Af Amer) >60 (>=60 mL/min/1.73m^2) BUN/Creatinine Ratio 21.2 Glucose 149 H (74-106) mg/dL Calcium 8.8 (8.5-10.1) mg/dL Total Bilirubin 0.4 (0.2-1.0) mg/dL AST 33 (15-37) U/L ALT 73 H (16-63) U/L Alkaline Phosphatase 91 (46-116) U/L Total Protein 7.3 (6.4-8.2) g/dL Albumin 3.6 (3.4-5.0) g/dL Globulin 3.7 g/dL Albumin/Globulin Ratio 1.0 POC Glucose 151 H (74-106) mg/dL Discharge Plan Discharge Chief Complaint: Dizziness Clinical Impression: Dizziness Patient Disposition: Home, Self-Care Time of Disposition Decision: 07:33 Condition: Good Mode of Transportation: Private Vehicle Prescriptions / Home Meds: No Action (DME) Dexcom G7 Sensor Device MISCELLANEOUS (DME) Omnipod 5 G6-G7 Pods (Gen 5) Cartridge SUBCUT Print Language: Venezuelan Instructions: Dizziness (ED) Referrals: Kampfer,Ginny A, [facility] [Primary Care Provider] - 1 week Discharge Date/Time: 05/22/25 07:42 Documented by User: Anuja Munson MD 05/22/25 07:34 HPI HPI - General Adult General Chief complaint: Dizziness Stated complaint: DIZZINESS WEAKNESS Time Seen by Provider: 05/22/25 05:54 Related Data Home Medications ?Medication ?Instructions ?Recorded ?Confirmed blood-glucose sensor (Dexcom G7 05/22/25 05/22/25 Sensor device) insulin pump cart,auto,BT,G6/7 05/22/25 05/22/25 (Omnipod 5 G6-G7 Pods (Gen 5) subcutaneous cartridge) Allergies Allergy/AdvReac Type Severity Reaction Status Date / Time Penicillins Allergy Mild rash Verified 05/22/25 05:32 PFSH PFSH Social History Little interest or pleasure in doing things: not at all Feeling down, depressed, or hopeless: not at all Exam Constitutional Vital Signs, click to edit/add: Last Vital Signs Temp 98.1 F 05/22/25 05:32 Pulse 79 05/22/25 05:32 Resp 18 05/22/25 05:32 BP 109/79 05/22/25 07:32 Pulse Ox 99 05/22/25 07:32 O2 Del Method Room Air 05/22/25 05:32 Course Vital Signs Vital signs: Vital Signs Pulse Oximetry 98 05/22/25 05:28 Temperature 98.1 F 05/22/25 05:32 Pulse Rate 79 05/22/25 05:32 Respiratory Rate 18 05/22/25 05:32 Blood Pressure 109/79 05/22/25 07:32 Pulse Oximetry 99 05/22/25 07:32 Oxygen Delivery Method Room Air 05/22/25 05:32 Medical Decision Making MDM Narrative Medical decision making narrative: patient presents complaining of feeling light headed for the past week. by light headed he means room spinning. States it occurs when he takes a deep breath. It does not last long. came in this AM for evaluation. No fever or chills . complains of pressure sensation in his head. Labs ordered along with IV hydration and antivert The patient care transferred to ca at 7 AM; Patient right now have no acute pathology detected on the blood workup and he does not have any symptoms he was feeling much better by receiving IV fluid in the ER Patient mentioned that the dizziness was only temporary whenever he take multiple deep breaths but he does not have any sensation of room spinning The patient was discharged home to rest for today and to follow-up with his primary care and outpatient care as needed The patient is to follow up with primary care physician in next 2-3 days or to return to the emergency department should any of the signs or symptoms worsen or new symptoms develop. The patient agrees with the following Diagnosis and Treatment plan and the patient will be discharged home. Clinical impression: Dizziness Lab Data Labs: Lab Results 05/22/25 05/22/25 Range/Units 05:42 06:35 WBC 5.9 (4.0-11.0) 10^3/uL RBC 4.51 L (4.70-6.10) 10^6/uL Hgb 14.3 (14.0-18.0) g/dL Hct 41.1 L (42.0-54.0) % MCV 91.1 (80.0-94.0) fL MCH 31.7 (25.9-34.0) pg MCHC 34.8 (29.9-35.2) g/dL RDW 11.9 (11.0-15.0) % Plt Count 226 (150-450) 10^3/uL MPV 10.6 (9.5-13.5) fL Neut % (Auto) 62.0 (43.0-75.0) % Lymph % (Auto) 27.9 (20.5-60.0) % [place] % (Auto) 7.1 (1.7-12.0) % Eos % (Auto) 2.0 (0.9-7.0) % Baso % (Auto) 0.7 (0.2-2.0) % Neut # (Auto) 3.7 (1.4-6.5) 10^3/uL Lymph # (Auto) 1.7 (1.2-3.8) 10^3/uL [place] # (Auto) 0.4 (0.3-0.8) 10^3/uL Eos # (Auto) 0.1 (0.0-0.7) 10^3/uL Baso # (Auto) 0.0 (0.0-0.1) 10^3/uL Abs Immat Gran (auto) 0.02 (0.00-0.03) 10^3/uL Imm/Tot Granulo (auto) 0.3 (0.0-0.5) % Sodium 141 (136-145) mmol/L Potassium 3.9 (3.5-5.1) mmol/L Chloride 105 (98-107) mmol/L Carbon Dioxide 24.2 (21.0-32.0) mmol/L Anion Gap 15.7 BUN 18.0 (7.0-18.0) mg/dL Creatinine 0.85 (0.70-1.30) mg/dL Est GFR ( Amer) >60 (>=60 mL/min/1.73m^2) Est GFR (Non-Af Amer) >60 (>=60 mL/min/1.73m^2) BUN/Creatinine Ratio 21.2 Glucose 149 H (74-106) mg/dL Calcium 8.8 (8.5-10.1) mg/dL Total Bilirubin 0.4 (0.2-1.0) mg/dL AST 33 (15-37) U/L ALT 73 H (16-63) U/L Alkaline Phosphatase 91 (46-116) U/L Total Protein 7.3 (6.4-8.2) g/dL Albumin 3.6 (3.4-5.0) g/dL Globulin 3.7 g/dL Albumin/Globulin Ratio 1.0 POC Glucose 151 H (74-106) mg/dL Discharge Plan Discharge Chief Complaint: Dizziness Clinical Impression: Dizziness Patient Disposition: Home, Self-Care Time of Disposition Decision: 07:33 Condition: Good Mode of Transportation: Private Vehicle Prescriptions / Home Meds: No Action (DME) Dexcom G7 Sensor Device MISCELLANEOUS (DME) Omnipod 5 G6-G7 Pods (Gen 5) Cartridge SUBCUT Print Language: [place]an Instructions: Dizziness (ED) Referrals: Kampfer,Ginny A, [facility] [Primary Care Provider] - 1 week Discharge Date/Time: 05/22/25 07:42
[2025-05-22] MEDS: MECLIZINE HCL 12.5 MG TABLET 25 MG PO (06:47)
[2025-05-22] MEDS: 0.9 % SODIUM CHLORIDE 1,000 ML 999 ML IV (06:47)
[2025-05-22 06:50] LABS: Hematocrit 41.1 % (42.0-54.0); Hemoglobin 14.3 g/dL (14.0-18.0); Immature Granulocytes Abs Auto 0.02 10^3/uL (0.00-0.03); Immature Granulocytes Pct Auto 0.3 % (0.0-0.5); Lymphocytes Absolute Auto 1.7 10^3/uL (1.2-3.8); Mean Corpuscular HGB Conc 34.8 g/dL (29.9-35.2); Mean Corpuscular Hemoglobin 31.7 pg (25.9-34.0); Mean Corpuscular Volume 91.1 fL (80.0-94.0); Platelet Count 226 10^3/uL (150-450); Red Blood Count 4.51 10^6/uL (4.70-6.10); White Blood Count 5.9 10^3/uL (4.0-11.0)
[2025-05-22 07:06] LABS: Alanine Aminotransferase 73 U/L (16-63); Albumin Globulin Ratio 1.0; Albumin Level 3.6 g/dL (3.4-5.0); Alkaline Phosphatase 91 U/L (46-116); Anion Gap 15.7; Aspartate Amino Transferase 33 U/L (15-37); Blood Urea Nitrogen 18.0 mg/dL (7.0-18.0); Calcium 8.8 mg/dL (8.5-10.1); Carbon Dioxide 24.2 mmol/L (21.0-32.0); Chloride 105 mmol/L (98-107); Estimated GFR (African America >60 (>=60 mL/min/1.73m^2); Estimated GFR (Non-African Ame >60 (>=60 mL/min/1.73m^2); Globulin 3.7 g/dL; Glucose 149 mg/dL (74-106); Potassium 3.9 mmol/L (3.5-5.1); Sodium 141 mmol/L (136-145); Total Protein 7.3 g/dL (6.4-8.2)
== END 2025-05-22 07:42 | disposition home or self-care (01) ==
PROVIDERS: Emergency Provider Internal Medicine; PCP Nurse Practitioner Family
DX: R42 Dizziness and giddiness (principal); E10.9 Type 1 diabetes mellitus without complications; Z79.4 Long term (current) use of insulin; Z96.41 Presence of insulin pump (external) (internal)
CPT/HCPCS: 36415; 80053; 82948; 85025; 99283